=== PATIENT | female | born 1985 | race Caucasian/White ===

== ENCOUNTER → 2018-06-15 11:11 | Outpatient (CLI) | payer BC, SELFPAY ==
[2018-06-17 11:38] LABS: HPV Reflexed? NOT INDICATED
== END ==
PROVIDERS: Visit Provider Obstetrics & Gynecology
DX: Z12.4 Encounter for screening for malignant neoplasm of cervix (principal)
CPT/HCPCS: 88175; G0145

== ENCOUNTER → 2021-10-22 | Outpatient (CLI) | payer OTHER, SELFPAY ==
--- NOTE | 2021-10-22 18:16 | US_ITS ---
STUDY: ULTRASOUND TRANSVAGINAL CLINICAL: Female, 36 years old. pelvic pain TECHNIQUE: Axial and sagittal ultrasound images of the pelvis were obtained transvaginally. COMPARISON: None. FINDINGS: The uterus measures 8.6 x 5.5 x 3.1 cm. An IUD is in satisfactory position. There is no discrete uterine fibroid. Trace fluid noted in the cervical canal. The right ovary measures 3.0 x 2.6 x 2.4 cm and the left ovary measures 3.8 x 2.9 x 2.3 cm. No focal ovarian lesion is identified on either side. There is a 2.4 cm dominant follicle in the left ovary. Blood flow to the ovaries was documented. There is no adnexal mass. No free fluid is seen in the pelvis. US/Transvaginal Non- IMPRESSION: IUD in satisfactory position. Unremarkable ovaries. No adnexal mass. Electronically Signed: Gaston Chavarria MD at 20:03 EDT ,
== END | disposition home or self-care (01) ==
PROVIDERS: PCP Family Medicine; Visit Provider Nurse Practitioner Women's Health
DX: R10.2 Pelvic and perineal pain (principal); Z97.5 Presence of (intrauterine) contraceptive device
CPT/HCPCS: 76830; 93976

== ENCOUNTER → 2024-06-19 | Outpatient (CLI) | payer OTHER, SELFPAY ==
--- NOTE | 2024-06-19 17:00 | RAD_ITS ---
EXAM: Abdomen single view CLINICAL HISTORY: Sitz marker day 3 COMPARISON: None available TECHNIQUE: Single supine view of the abdomen FINDINGS: No markers are present. Some gas and stool is seen in the colon. No significant appearing fecal load. Pelvic phleboliths incidentally noted. Intrauterine device. Visualized osseous structures appear within limits. RAD/Abdomen Single View IMPRESSION: No markers are present. Reading Location: [id number]
--- NOTE | 2024-06-21 10:05 | RAD_ITS ---
EXAM: Abdomen single view CLINICAL HISTORY: Sitz marker day 5 COMPARISON: 06/19/2024 TECHNIQUE: 2 supine views of the abdomen and pelvis FINDINGS: Again no Sitz markers are present. No significant appearing fecal load. No gaseous distention of bowel. Intrauterine device and pelvic phleboliths again noted. RAD/Abdomen Single View IMPRESSION: Again no Sitz markers are present. Reading Location: [id number]
== END | disposition home or self-care (01) ==
PROVIDERS: PCP Family Medicine; Referring Provider Student in an Organized Health Care Education/Training Program; Visit Provider Nurse Practitioner Acute Care
DX: K59.00 Constipation, unspecified (principal); R10.84 Generalized abdominal pain
CPT/HCPCS: 74018

== ENCOUNTER 2024-06-21 09:57 | Outpatient (CLI) | payer OTHER, SELFPAY | END 2024-06-21 23:59 | disposition home or self-care (01) | LOC: RAD 10:02 | PROVIDERS: PCP Family Medicine; Referring Provider Nurse Practitioner Acute Care; Visit Provider Nurse Practitioner Acute Care | DX: Z00.00 Encounter for general adult medical examination without abnormal findings (principal) | CPT/HCPCS: 74018 ==

== ENCOUNTER 2024-08-23 05:22 | Day surgery (SDC) | payer OTHER, SELFPAY ==
[2024-08-23] VITALS (8 sets, daily range): BP systolic 97–104; BP diastolic 63–70; PULSE 58–79; RESP 16; TEMP 36.1–36.7; O2SAT 99–100; BMI 22.0
[2024-08-23 05:58] LABS: Internal QC Validated? YES +Cl - CLEAR BKGD; Pregnancy, Urine Negative Negative
[2024-08-23] MEDS: Lactated Ringers 1,000 ML 15 ML IV (06:00)
--- NOTE | 2024-08-23 06:22 | PCM.PRE.AN2 ---
ASA Classification* ASA Classification ASA Classification: 1 Assessment & Plan Anesthesia* Anesthesia Assessment Anesthesia Assessment: Discussed sedation and/or anesthesia options, risks, benefits, and alternatives with patient/parents/legal guardian/POA. Questions invited. The patient/parents/legal guardian/POA seems to understand and agrees to proceed with anesthesia plan. Reviewed the physical assessment, medical history, allergy history and patient home medications list prior to surgery/procedure/anesthetic and documented any changes. Performed airway and anesthesia risk assessments. Anesthesia Type Anesthesia Type: MAC History Source History Obtained from:: Patient and Chart Anesthesia Focused Assessment* Temperature: 98.0 F Pulse Rate: 58 Blood Pressure: 104/64 Respiratory Rate: 16 Pulse Ox: 99 Oxygen Delivery Method: Room Air Airway Assessment Mouth opens: >3 cm Mallampati Score: I Teeth Condition: Intact Neck Range of motion (ROM): Full ROM Focused Labs Anesthesia Preop lab: CBC WBC 5.3 k/mm3 (4.4-11.0) 11/25/12 07:50 11/25/12 RBC 4.42 M/mm3 (4.2-5.4) 11/25/12 07:50 11/25/12 Hgb 12.3 g/dl (12.0-15.0) 11/25/12 07:50 11/25/12 Hct 36.6 % (37-47) L 11/25/12 07:50 11/25/12 Plt Count 219 K/mm3 (150-450) 11/25/12 07:50 11/25/12 CHEMISTRY Potassium 3.7 mmol/L (3.5-5.1) 11/25/12 07:50 11/25/12 Sodium 136 mmol/L (136-145) 11/25/12 07:50 11/25/12 Phosphorus 3.7 mg/dL (2.5-4.9) 11/25/12 07:50 11/25/12 BUN 10 mg/dL (7-18) 11/25/12 07:50 11/25/12 Creatinine 0.7 mg/dL (0.6-1.0) 11/25/12 07:50 11/25/12 Glucose 79 mg/dL (70-110) 11/25/12 07:50 11/25/12 COAG Urine Test Negative Negative 08/23/24 05:38 08/23/24 Pre-Assessment Diagnosis/Proposed Procedure Planned Operative Procedure(s): CSCOPE Anesthesia History Anesthesia History - director shopper marketing: Anesthesia History - director shopper marketing Hx Hospitalization No 08/18/24 11:49 Any Problems With Anesthesia No 08/18/24 11:49 Cholinesterase deficiency No 08/18/24 11:49 You/Your Family Experience No 08/18/24 11:49 fever (hyperthermia) with Relationship Recent Exposure to Contagious No 08/23/24 05:51 Disease Does patient have nerve No 08/18/24 11:49 stimulator Patient instructed to have device shut off --Does patient have Pacemaker No 08/23/24 05:52 or ICD? When Was Last Pacemaker Check QUESTION #4 FULL TEXT: You/Your Family Experience fever (hyperthermia) with Anesthesia Last Oral Intake Last Oral intake: Last Oral Intake NPO since 00:00 08/23/24 05:52 Meds taken in AM with sips of water? Meds patient instructed to take am of surgery PONV PONV - director shopper marketing: PONV - director shopper marketing Female Yes 08/18/24 11:49 HX of Motion Sickness Yes 08/18/24 11:49 HX of N/V After Surgery No 08/18/24 11:49 Non-Smoker Yes 08/18/24 11:49 Duration of Surgery greater No 08/18/24 11:49 than 60 minutes Number of Risk Factors 3 08/18/24 11:49 PONV Score Moderate Risk 08/18/24 11:49 Height & Weight Height & Weight: Anesthesia: Height & Weight Height 5 ft 3 in 08/23/24 05:52 Weight: 56.518 kg 08/23/24 05:52 Body Mass Index (BMI) 22.0 08/23/24 05:52 Respiratory Assessment Respiratory Assessment - director shopper marketing: Respiratory Tract Infection Hx - director shopper marketing Hx Respiratory Tract Infection No 08/18/24 11:49 STOP Sleep Apnea STOP Sleep Apnea - director shopper marketing: STOP Sleep Apnea - director shopper marketing Hx Hypertension No 08/18/24 11:49 Hx Sleep Apnea No 08/18/24 11:49 CPAP BIPAP Do you snore loudly (louder No 08/18/24 11:49 than talking or can be heard Do you often feel tired/ No 08/18/24 11:49 fatigued/ sleepy during daytime? Has anyone observed you stop No 08/18/24 11:49 breathing during sleep? STOP Results Negative 08/18/24 11:49 QUESTION #5 FULL TEXT : Do you snore loudly (louder than talking or can be heard through closed doors)? 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 Specify any problems Hx of Preganancy in last 3 No 08/18/24 11:49 Months Nurse Filling Out Transfusion DSCHRIBER 08/18/24 11:49 & Questions: Date: 08/18/24 08/18/24 11:49 Time: 11:50 08/18/24 11:49 Patient unable to answer at this time (ie. confused, unrespo /Reproduction History /Reproductive History - director shopper marketing: /Reproductive Hx- director shopper marketing Hx Now No 08/18/24 11:49 Gestational Age (in weeks): EDC: Hx Hx Para Hx Section SAB No 08/18/24 11:49 Active Medications Active Medications: Current Medications Generic Name Dose Route Start Last Admin Trade Name Freq PRN Reason Stop Dose Admin Lactated Ringer's 1,000 mls @ 15 mls/hr 08/23/24 05:45 08/23/24 06:00 IV 15 mls/hr .Q48H GOMEZ Administration PFSH Medical History Wears glasses Wears contact lenses Migraine headache History of IBS Gastric reflux Former smoker Home Medications ?Medication ?Instructions ?Recorded ?Last Taken ?Type omeprazole 20 mg capsule,delayed 20 mg PO QDAY GERD #90 caps 06/14/24 08/22/24 Rx release [id number] 100 gram-sod sulf 7.5 See Rx Instructions PO PER PKG DIR 08/22/24 Unknown Rx [id number]-ascorbate-C oral #1 ea pwdr pack (MoviPrep) Allergy/AdvReac Type Severity Reaction Status Date / Time No Known Allergies Allergy Verified 08/23/24 05:49 Family History Grandmother IBS (irritable bowel syndrome) Rheumatoid arthritis Fibromyalgia Hypertension Mother Arthritis Fibromyalgia Rheumatoid arthritis Hypertension Father Hypertension Grandfather Hypertension Surgical History No history of previous surgery Hx of breast biopsy Social History Smoking Status: Never smoker alcohol intake: never substance use type: does not use frequency: 3-4 times per week Review of Systems (Anesthesia) ROS Narrative System reviewed and no additional complaints, except as documented.
--- NOTE | 2024-08-23 06:30 | COLBX_PTH ---
PATIENT: BRAULIO HOLDER LOC: EN U#:[id number] AGE/SX: 38/F ROOM: RE08/23/[address]: Dr. Phillip Shah DO : 1985 BED: DIS: 08/23/2024 SPEC #: [id number] RECD: 08/23/24 08:10 STATUS: AIDA RONNY #: [id number] SIOBHAN: 08/23/24 06:[address]: Phillip Shah DEPT: SURGICAL PATHOLOGY RECD BY: Selvin Curiel ENTERED: 08/23/24 09:00 SP TYPE: COLON BX EDMUND DR: Dr. Jessa Kimball MD Tissues: A - Ileum, NOS B - COLON BIOPSY C - COLON BIOPSY Procedures: Surgery Specimen Level IV HEADER OPERATION: Colonoscopy and biopsy and polypectomy PRE-OP DIAGNOSIS: Abdominal pain, cramping, constipation TISSUE SUBMITTED: A- Terminal ileum biopsy, B- Hepatic flexure polyp, C- Random colon biopsy MICROSCOPIC DIAGNOSIS A. Small bowel, terminal ileum, biopsy: Normal villous morphology with no specific pathologic change. B. Colon, hepatic flexure, polyp, biopsy: Tubular adenoma. C. Colon, random, biopsy: No specific pathologic change. The histologic features of microscopic colitis are not demonstrated. MICROSCOPIC DESCRIPTION Slides are reviewed. GROSS DESCRIPTION A. Received in formalin in a container labeled with the patient's name, date of , and terminal ileum are 3 george-pink fragments of mucosal tissue ranging from 0.4 x 0.2 x 0.2 cm to 0.5 x 0.2 x 0.2 cm. Submitted in toto in A1. B. Received in formalin in a container labeled with the patient's name, date of , and polyp hepatic flexure is a 0.3 x 0.3 x 0.2 cm fragment of george-pink mucosal tissue. Submitted in toto in B1. C. Received in formalin in a container labeled with the patient's name, date of , and random colon biopsies are multiple george-pink fragments of mucosal tissue measuring 1.0 x 0.6 x 0.2 cm in aggregate. Submitted in toto in C1. [facility] 08-23-2024 CPT:83543w5
--- NOTE | 2024-08-23 07:01 | HP.PCM_ITS ---
HPI - General General Date of Admission: 08/23/24 Date of Service: 08/23/24 Chief Complaint: abdominal pain , GERD, constipation HPI Narrative BRAULIO HOLDER, is a 38 F who presents for evaluation of abdominal pain, cramping, nausea and change in bowel habits with worsening constipation. r CBC and CMP 05/03/2024 unremarkable including calcium - for several years she has had ongoing stomach issues - can go several days without a BM, abdominal pain and bloating adn then will have several days of diarrhea - typically rabbit turds or watery diarrhea - has abdominal cramping - cramping can be very intense - diarrhea can be so bad she fears having any accident - denies any weight loss - denies any bleeding - she has never had a colonoscopy - has tried increasing fiber - she had tried to pay close attention to food that trigger symptoms - water intake is good - close to a gallon a day - reducing red meat has helped with symptoms she has added fruit with breakfast - veggie intake is pretty standard - she tried Benefiber chews these did not help - HB in the evenings - reflux if she eats too late at night - she is prescribed Omeprazole but does not take often - Tums helps - denies any N/V PFSH Medical History Wears glasses Wears contact lenses Migraine headache History of IBS Gastric reflux Former smoker Home Medications ?Medication ?Instructions ?Recorded ?Last Taken ?Type omeprazole 20 mg capsule,delayed 20 mg PO QDAY GERD #9 0 caps 06/14/24 08/22/24 Rx release [id number] 100 gram-sod sulf 7.5 See Rx Instructions PO P ER PKG DIR 08/22/24 Unknown Rx [id number]-ascorbate-C oral #1 ea pwdr pack (MoviPrep) Allergy/AdvReac Type Severity Reaction Status Date / Time No Known Allergies Allergy Verified 08/23/24 05:49 Family History Grandmother IBS (irritable bowel syndrome) Rheumatoid arthritis Fibromyalgia Hypertension Mother Arthritis Fibromyalgia Rheumatoid arthritis Hypertension Father Hypertension Grandfather Hypertension Surgical History No history of previous surgery Hx of breast biopsy Social History Smoking Status: Never smoker alcohol intake: never substance use type: does not use frequency: 3-4 times per week ROS Constitutional Constitutional: Denies fatigue, fever(s), poor appetite, weight gain or weight loss Gastrointestinal Gastrointestinal: Denies belching, bloating, change in bowel habits, change in stool character, chewing difficulty, coffee ground emesis, constipation, cramping, diarrhea, dyspepsia, dysphagia, early satiety, excessive flatus, fecal incontinence, heartburn, hematemesis, hematochezia, hemorrhoids, loose stools, melena, nausea, odynophagia, rectal bleeding, tenesmus, vomiting or weight changes Vital Signs Vital Signs Vital Signs: 08/23/24 05:51 08/23/24 05:52 08/23/24 06:26 Temperature 98.0 F 98.0 F Temperature Source Temporal Pulse Rate 58 L 58 L Respiratory Rate 16 16 Respiratory Pattern Normal Blood Pressure 104/64 104/64 Blood Pressure Mean 77 Blood Pressure Source Monitor Blood Pressure Position Semi-Fowlers Blood Pressure Location Left Arm Pulse Ox 99 99 Oxygen Delivery Method Room Air Room Air Weight Weight: 124 lb 9.6 oz Body Mass Index (BMI) 22.0 Physical Exam Const alert, oriented x3, no apparent distress and healthy appearing General Appearance: cooperative GI normal to inspection, nondistended, normoactive bowel sounds, soft to palpation, non-tender and non-distended Percussion: normal to percussion Rectal Exam: deferred Results Lab / Micro Data Labs: Laboratory Results - last 24 hr 08/23/24 05:38: Urine Test Negative Assessment & Plan Assessment/Plan (1) Abdominal cramping: (2) Abdominal pain: QUALIFIERS: Abdominal location: generalized Qualified Code(s): R10.84 - Generalized abdominal pain (3) Constipation: QUALIFIERS: Constipation type: unspecified constipation type Qualified Code(s): K59.00 - Constipation, unspecified (4) GERD (gastroesophageal reflux disease): QUALIFIERS: Esophagitis presence: esophagitis presence not specified Qualified Code(s): K21.9 - Gastro-esophageal reflux disease without esophagitis (5) IBS (irritable bowel syndrome): PLAN: Assessment and Plan Assessment and Plan (1) GERD (gastroesophageal reflux disease): Status: Acute Qualifiers: Esophagitis presence: esophagitis presence not specified Qualified Code(s): K21.9 - Gastro-esophageal reflux disease without esophagitis (2) Constipation: Status: Acute Qualifiers: Constipation type: unspecified constipation type Qualified Code(s): K59.00 - Constipation, unspecified (3) Abdominal pain: Status: Acute Qualifiers: Abdominal location: generalized Qualified Code(s): R10.84 - Generalized abdominal pain (4) Abdominal cramping: Status: Acute Plan 38y/o female presents for initial consultation with complaints of heartburn, constipation and diarrhea. Heartburn symptoms are intermittent and exacerbated with alcohol and late night eating. We have discussed GERD recommendations and I have encouraged her to complete an 8 week course of Omeprazole 20mg daily. She reports a long history of alternating constipation and diarrhea associated with abdominal pain and cramping. Stools are either hard small balls or urgent watery diarrhea. She prefers not to take any medications if possible. I have recommended a high fiber diet with the addition of daily fiber supplement and probiotic. She will complete Sitz Marker testing and colonoscopy. CBC and CMP were unremarkable 05/03/2024, if she has not had a recent TSH, I recommend she have this completed. A total of 60 minutes was spent on this visit reviewing [employer] and/or [facility] for associated records; previous notes (CBC, CMP 05/03/2024), counseling the patient on (high fiber diet, GERD diet, benefits of fiber supplements and probiotics, ACG PPI recommendation), ordering tests (sitz marker, colonoscopy), adjusting meds (Omeprazole, FiberCon and Probiotic), importance of compliance with treatment and documenting the findings in the note. Patient Instructions: - Complete Sitz Marker study - FiberCon 2 tablets once daily with 8 ounces of water after a meal. May take up to 3 weeks for symptom improvement. - Start a probiotic (ThisLife, Shot & Shope or Myrl) once daily. These are all multispecies probiotics, pick the cheapest one. - Omeprazole 20mg daily, take 30 minutes before breakfast daily for 8 weeks. If symptoms are persisting or return with discontinuing will schedule EGD. - Follow-up in the office post colonoscopy IBS includes symptoms such as abdominal pain, bloating, diarrhea, constipation or mixed bowel habits. Patients can also experience small intestinal bacterial overgrowth (SIBO), food sensitivities exacerbating symptoms. Making dietary changes with a low FODMAP diet, gluten free diet or antiinflammatory diet have shown to be beneficial as well as taking a daily probiotic. Physical activity and stress management are also important in managing your gut health; as this helps regulate autonomic function and improve gut motility. Studies show yoga, walking, meditation, relaxation techniques, mindfulness and deep breathing exercises are also beneficial for gut health. If you are not already taking a probiotic, I recommend a once daily multispecies probiotic such as Align, Culturelle or [facility]. In addition to a probiotic, I recommend a daily fiber supplement such as FiberCon tablets. Taking two FiberCon tablets once daily helps with both constipation (by softening stools and promoting movement) and diarrhea (by absorbing excess fluid and firming stools). Fiber helps maintain regular bowel movements which create a more balanced gut environment and can help reduce gut irritation and bloating. Consistent fiber intake can support beneficial bacteria by promoting gut motility and reducing stagnation of waste. Incorporating a fiber and probiotic supplement paired with lifestyle changes such as hydration (aim for at least 64 ounces daily), movement and a balanced diet may take up to three weeks to show noticeable benefits. Consistency is jarquin in allowing the gut time to adapt. The gut-brain axis plays a significant role, and effective treatment requires a multifaceted approach that goes beyond medications alone. While pharmacological therapy can be beneficial, the greatest impact comes from a comprehensive, whole-body approach that includes dietary modifications, stress management, physical activity, and gut health optimization. Addressing these factors together helps improve overall well-being and symptom management. PPIs are the most effective medical treatment for GERD. Some medical studies have identified an association between the long-term use of PPIs and the development of numerous adverse conditions including intestinal infections, pneumonia, stomach cancer, osteoporosis-related bone fractures, chronic kidney disease, deficiencies of certain vitamins and minerals, heart attacks, strokes, dementia, and early . Those studies have flaws, are not considered definitive, and do not establish a gulco-lgq-cqaptz relationship between PPIs and the adverse conditions. High-quality studies have found that PPIs do not significantly increase the risk of any of these conditions except intestinal infections. Nevertheless, we cannot exclude the possibility that PPIs might confer a small increase in the risk of developing these adverse conditions. For the treatment of GERD, gastroenterologists generally agree that the well- established benefits of PPIs far outweigh their theoretical risks. Coding Level of Care Code Attention Lydia Diagnoses Gastroesophageal reflux disease, unspecified whether esophagitis present K21.9 Esophagitis presence: esophagitis presence not specified Constipation, unspecified constipation type K59.00 Constipation type: unspecified constipation type Generalized abdominal pain R10.84 Abdominal location: generalized Abdominal cramping R10.9
--- NOTE | 2024-08-23 07:29 | PCM.POST.ANE ---
Anesthesia: Postop Eval I Current Vital Signs Temperature: 97 F Pulse Rate: 79 Blood Pressure: 104/70 Respiratory Rate: 16 Pulse Ox: 100 Oxygen Delivery Method: Room Air Assessment Airway patent: Yes Spontaneous unlabored respirations: Yes Mental status: Awake and Calm nausea: No Vomiting: No Anesthesia Complication: No Fluid Hydration Crystalloid volume administer (ml): 400 Total IV fluid infused: 400 Progress Note Anesthesia document: Postop Eval 1 completed: Yes
--- NOTE | 2024-08-23 07:38 | OP.CCLET_ITS ---
08/23/2024 Jessa Kimball Md Re : Colonoscopy procedure for Yaquelin Hartley Dear Dr. Kimball This procedure was performed on Friday, August 23, 2024. My impressions and recommendations are as follows: Impressions : - One 4 mm polyp at the hepatic flexure, removed with a jumbo cold forceps. Resected and retrieved. - Stricture at the hepatic flexure. - Congested mucosa in the sigmoid colon, in the descending colon and at the hepatic flexure. Biopsied. - Mild inflammation was found in the ileum secondary to ileitis. Biopsied. Recommendations : - Discharge patient to home. - Resume previous diet. - Continue present medications. - Await pathology results. - Repeat colonoscopy in 5 years for surveillance. - Return to GI office. My findings are described in the full procedure note, which is enclosed. If I can be of further assistance, please feel free to contact me at . Sincerely, Phillip Shah, 08/23/2024 7:36:43 AM This report has been signed electronically.
--- NOTE | 2024-08-23 07:38 | OP.COLON_ITS ---
Patient Name: Yaquelin Hartley Procedure Date: 08/23/2024 6:50 AM Date of : 1985 Age: 38 Procedure: Colonoscopy Indications: Generalized abdominal pain, Change in bowel habits, Constipation, Obstipation Providers: Phillip Shah DO Referring MD: Jessa Kimball Md Medicines: Monitored Anesthesia Care Patient Profile: This is a 38 year old female. Refer to note in patient chart for documentation of history and physical. Last Colonoscopy: none. The patient's first colonoscopy is today. Complications: No immediate complications. Procedure: Pre-Anesthesia Assessment: - Prior to the procedure, a History and Physical was performed, and patient medications and allergies were reviewed. The patient is competent. The risks and benefits of the procedure and the sedation options and risks were discussed with the patient. All questions were answered and informed consent was obtained. Patient identification and proposed procedure were verified by the physician in the pre-procedure area. Mental Status Examination: alert and oriented. Airway Examination: normal oropharyngeal airway and neck mobility. Respiratory Examination: clear to auscultation. CV Examination: normal. Prophylactic Antibiotics: The patient does not require prophylactic antibiotics. Prior Anticoagulants: The patient has taken no anticoagulant or antiplatelet agents except for NSAID medication. ASA Grade Assessment: II - A patient with mild systemic disease. After reviewing the risks and benefits, the patient was deemed in satisfactory condition to undergo the procedure. The anesthesia plan was to use monitored anesthesia care (MAC). Immediately prior to administration of medications, the patient was re-assessed for adequacy to receive sedatives. The heart rate, respiratory rate, oxygen saturations, blood pressure, adequacy of pulmonary ventilation, and response to care were monitored throughout the procedure. The physical status of the patient was re-assessed after the procedure. After I obtained informed consent, the scope was passed under direct vision. Throughout the procedure, the patient's blood pressure, pulse, and oxygen saturations were monitored continuously. The Colonoscope was introduced through the anus and advanced to the terminal ileum. The colonoscopy was performed without difficulty. The patient tolerated the procedure well. The quality of the bowel preparation was adequate. The terminal ileum, ileocecal valve, appendiceal orifice, and rectum were photographed. Scope In: 7:10:14 AM Scope Withdrawal Time 0 hours 6 minutes 51 seconds Scope Out: 7:20:58 AM Total Procedure Duration Time 0 hours 10 minutes 44 seconds Findings: The perianal and digital rectal examinations were normal. A 4 mm polyp was found in the hepatic flexure. The polyp was sessile. The polyp was removed with a jumbo cold forceps. Resection and retrieval were complete. Verification of patient identification for the specimen was done. Estimated blood loss was minimal. A benign-appearing, intrinsic mild stenosis measuring 1 cm (in length) was found at the hepatic flexure and was traversed. An area of mildly congested mucosa was found in the sigmoid colon, in the descending colon and at the hepatic flexure. Biopsies were taken with a cold forceps for histology. Verification of patient identification for the specimen was done. Localized mild inflammation characterized by erythema was found in the terminal ileum. Biopsies were taken with a cold forceps for histology. Verification of patient identification for the specimen was done. Verification of patient identification for the specimen was done. Estimated blood loss was minimal. Impression: - One 4 mm polyp at the hepatic flexure, removed with a jumbo cold forceps. Resected and retrieved. - Stricture at the hepatic flexure. - Congested mucosa in the sigmoid colon, in the descending colon and at the hepatic flexure. Biopsied. - Mild inflammation was found in the ileum secondary to ileitis. Biopsied. Recommendation: - Discharge patient to home. - Resume previous diet. - Continue present medications. - Await pathology results. - Repeat colonoscopy in 5 years for surveillance. - Return to GI office. Procedure Code(s): --- Professional --- 26605, Colonoscopy, flexible; with biopsy, single or multiple CPT copyright 2021 [employer]. All rights reserved. The codes documented in this report are preliminary and upon utility tender carding review may be revised to meet current compliance requirements. Phillip Shah DO 08/23/2024 7:36:43 AM This report has been signed electronically. Number of Addenda: 0 Note Initiated On: 08/23/2024 6:50 AM
--- NOTE | 2024-08-23 08:13 | PCM.POSTANE2 ---
Anesthesia Postop Eval I Sum Postop Eval Completion status Anesthesia document: Postop Eval 1 completed: Yes Anesthesia Postop Eval I Summary Anesthesia Postop Eval I Summary: Anesthesia Postop Eval I: Assessment Summary Airway patent Yes 08/23/24 07:29 [email or web address] Spontaneous unlabored Yes 08/23/24 07:29 [email or web address] respirations Mental status Awake,Calm 08/23/24 07:29 [email or web address] nausea No 08/23/24 07:29 [email or web address] Vomiting No 08/23/24 07:29 [email or web address] Anesthesia Postop Eval I: Fluid Summary Crystalloid volume administer 400 08/23/24 07:29 [email or web address] (ml) Colloids volume administered ( ml) Blood Product volume administered (ml) Total IV fluid infused 400 08/23/24 07:29 [email or web address] Anesthesia Postop Eval I: Summary Notes Anesthesia Complication No 08/23/24 07:29 [email or web address] Anesthesia Complication Comment: Post-operative progress note Anesthesia: Postop Eval II Evaluation Mental status: Awake Pain Level: 0 nausea: No Vomiting: No
== END 2024-08-23 08:31 | disposition home or self-care (01) ==
LOC: EN 05:23 → AC 05:40
PROVIDERS: Anesthesiology; PCP Family Medicine; Referring Provider Family Medicine; Visit Provider Internal Medicine Gastroenterology
PROC: 0DJD8ZZ Inspection of Lower Intestinal Tract, Via Natural or Artificial Opening Endoscopic (ICD-10-PCS; CPT 45378; principal; 2024-08-23 06:25)
DX: K21.9 Gastro-esophageal reflux disease without esophagitis (principal); K58.0 Irritable bowel syndrome with diarrhea; K63.89 Other specified diseases of intestine; D12.3 Benign neoplasm of transverse colon; Z79.899 Other long term (current) drug therapy
CPT/HCPCS: 45380; 81025; 88305; J2405

== ENCOUNTER 2024-10-04 10:11 | Observation (INO) | payer OTHER, SELFPAY ==
[2024-10-04] VITALS (16 sets, daily range): BP systolic 104–127; BP diastolic 68–80; PULSE 64–85; RESP 14–18; TEMP 36.1–37.2; O2SAT 97–100; BMI 22.1
--- NOTE | 2024-10-04 10:59 | CT_ITS ---
EXAM: CT Abdomen and Pelvis With Intravenous Contrast CLINICAL INDICATION: PAIN TECHNIQUE: Axial computed tomography images of the abdomen and pelvis with intravenous contrast. This CT exam was performed using one or more of the following dose reduction techniques: automated exposure control, adjustment of the mA and/or kV according to patient size, and/or use of iterative reconstruction technique. COMPARISON: No relevant prior studies available. FINDINGS: LUNG BASES: Unremarkable. No mass. No consolidation. ABDOMEN: LIVER: Hepatomegaly with fatty infiltration. GALLBLADDER AND BILE DUCTS: Unremarkable. No calcified stones. No ductal dilation. PANCREAS: Unremarkable. No mass. No ductal dilation. SPLEEN: Unremarkable. No splenomegaly. ADRENALS: Unremarkable. No mass. KIDNEYS AND URETERS: Unremarkable. No stones within either kidney. No hydronephrosis. STOMACH AND BOWEL: Fecal retention in the colon consistent with constipation. No obstruction. No mucosal thickening. PELVIS: APPENDIX: The appendix measures up to 8 mm in diameter with subtle fat stranding. This could be evolving or resolving acute appendicitis. No pneumoperitoneum or abscess. BLADDER: Unremarkable. No mass. REPRODUCTIVE: Unremarkable as visualized. ABDOMEN and PELVIS: INTRAPERITONEAL SPACE: See above. BONES/JOINTS: No acute fracture. No dislocation. SOFT TISSUES: Umbilical hernia containing fat. VASCULATURE: Unremarkable. No abdominal aortic aneurysm. LYMPH NODES: Unremarkable. No enlarged lymph nodes. CT/Abdomen/Pelvis W IV Cont ONLY IMPRESSION: 1. The appendix measures up to 8 mm in diameter with subtle fat stranding. Th is could be evolving or resolving acute appendicitis. No pneumoperitoneum or abscess. 2. Hepatomegaly with fatty infiltration. 3. No obstructive uropathy. 4. Umbilical hernia containing fat. 5. Fecal retention in the colon consistent with constipation. Reading [facility]
--- NOTE | 2024-10-04 11:00 | EDS_ITS ---
HPI HPI - GI History of Present Illness Chief Complaint: Abd Pain Informant: patient Abdominal Pain/Flank Pain Onset: Today Context: Sudden Onset Timing: Continuous Quality: Aching and Sharp Location: LLQ and - (Left periumbilical area) Worsened by: Movement (Sitting upright and ambulation) Relieved by: Remaining Still Nausea/Vomiting/Emesis GI Symptom: Positive for Nausea and Vomiting Diarrhea/Melena/Hematochezia GI Symptom: Positive for Diarrhea; Negative for Melena or Hematochezia Associated Symptoms Associated Symptoms: Negative for Dysuria, Frequency or Hematuria LMP: Current Narrative Narrative: Patient presents with abdominal pain that began today. Patient states it woke her up from sleep early this morning. Patient states that it has been constant. Patient describes it as aching but sharp at times. Patient states it is over the left periumbilical area and left lower quadrant. Patient states it is worse with certain movements. Patient states it is worse with ambulation and with sitting upright. Patient states it is better when she is able to remain still and lay flat. Patient admits to some nausea and vomiting. Patient admits to some diarrhea. Patient denies any hematemesis or coffee-ground emesis. Patient denies any melena or hematochezia. Patient is currently on her menstrual period. Patient denies any urinary complaints. PFSH PFS Medical History Wears glasses Wears contact lenses Migraine headache History of IBS Gastric reflux Former smoker Home Medications ?Medication ?Instructions ?Recorded ?Last Taken ?Type omeprazole 20 mg capsule,delayed 20 mg PO QDAY GERD #9 0 caps 06/14/24 08/22/24 Rx release hyoscyamine sulfate 0.125 mg 0.125 mg PO BID-QID PRN a bdominal 09/13/24 Unknown Rx disintegrating tablet cramping, diarrhea #60 tabs Allergy/AdvReac Type Severity Reaction Status Date / Time No Known Allergies Allergy Verified 08/23/24 05:49 Family History Grandmother IBS (irritable bowel syndrome) Rheumatoid arthritis Fibromyalgia Hypertension Mother Arthritis Fibromyalgia Rheumatoid arthritis Hypertension Father Hypertension Grandfather Hypertension Surgical History No history of previous surgery Hx of breast biopsy Social History Smoking Status: Never smoker alcohol intake: never substance use type: does not use frequency: 3-4 times per week ROS ROS ED Constitutional Constitutional ED: Reports chills and subjective; Denies fever(s) Eyes Eyes: Denies blurry vision or change in vision ENT ENT ED: Denies rhinorrhea or sore throat Cardiovascular Cardiovascular: Denies chest pain or palpitations Respiratory/Chest Respiratory/Chest: Denies cough or dyspnea Gastrointestinal Gastrointestinal: Reports abdominal pain, diarrhea, nausea and vomiting; Denies melena Genitourinary Genitourinary ED: Denies dysuria or hematuria Musculoskeletal Musculoskeletal: Reports back pain; Denies neck pain Integumentary Denies abscess or rash Neurologic Neurologic: Denies headache(s) or weakness Allergic/Immunologic Allergic/Immunologic ED: Denies mouth swelling or urticaria EXAM Physical Exam Const Vital Signs: 10/04/24 10:11 10/04/24 11:11 10/04/24 12:00 Temperature 98.6 F Temperature Source Oral Pulse Rate 71 70 85 Respiratory Rate 18 14 14 Blood Pressure 115/75 115/68 124/73 H Blood Pressure Mean 88 83 90 Pulse Ox 100 100 100 Oxygen Delivery Method Room Air Room Air Room Air 10/04/24 13:00 10/04/24 13:55 Temperature 98.6 F Temperature Source Pulse Rate 70 70 Respiratory Rate 14 14 Blood Pressure 123/72 H 123/72 H Blood Pressure Mean 89 89 Pulse Ox 99 99 Oxygen Delivery Method Room Air Positive well nourished and well developed Constitutional Narrative: BMI is 22.1. General Appearance ED: well developed and NAD HEENT Reports moist mucous membranes normocephalic and atraumatic Neck supple and no JVD Resp normal respiratory effort and clear to auscultation bilaterally Cardio regular rate and regular rhythm GI non-distended Palpation: soft and tender LLQ, periumbilical and suprapubic; Negative for guarding or rebound tenderness present Neuro CN's II-XII intact bilaterally, moves all extremities and no sensory deficits noted Sensorium / Orientation: alert Motor Exam: strength 5/5 throughout Psych mental status grossly normal MDM MDM MDM Narrative Medical decision making narrative: Differential diagnosis includes ureteral calculus, pyelonephritis, urinary tract infection, diverticulitis, pancreatitis, ectopic , ovarian cyst, and constipation. CT scan of the abdomen and pelvis will be obtained to assess for ureteral calculus, diverticulitis, pancreatitis, bowel obstruction, perforation. CBC will be obtained to assess for leukocytosis and anemia. Comprehensive metabolic profile will be obtained to assess for hepatic function, renal function, and electrolyte abnormality. Lipase will be obtained to assess for pancreatitis. Serum hCG will be obtained to assess for . Urinalysis will be obtained to assess for urinary tract infection and hematuria. History & Record Review Additional record(s) reviewed:: Prior outpatient record Lab Data Attestation: I reviewed the patient's lab results. Lab results narrative: CBC was reviewed. There is a leukocytosis of 15.5. The remainder is within normal limits. Comprehensive metabolic profile was reviewed and was essentially within normal limits. Lipase was reviewed and was normal at 48. Serum hCG was reviewed and was negative. Urinalysis was reviewed. There is no evidence of urinary tract infection or hematuria. Labs: Laboratory Results - last 24 hr 10/04/24 10/04/24 11:10 11:20 WBC 15.5 H RBC 4.73 Hgb 13.4 Hct 39.7 MCV 83.9 MCH 28.3 MCHC 33.8 RDW Std Deviation 36.1 RDW Coeff of Alcira 11.9 Plt Count 264 MPV 10.3 Immature Gran % (Auto) 0.700 Neut % (Auto) 88.2 H Lymph % (Auto) 5.2 L Bartholomew % (Auto) 5.5 Eos % (Auto) 0.1 Baso % (Auto) 0.3 Absolute Neuts (auto) 13.6 H Absolute Lymphs (auto) 0.81 L Nucleated RBC % 0 Sodium 138 Potassium 3.6 Chloride 102 Carbon Dioxide 20.8 L Anion Gap 15 BUN 11 Creatinine 0.74 Estim Creat Clear Calc 86.10 Est GFR (MDRD) Non-Af 106 BUN/Creatinine Ratio 14.7 Glucose 99 Calcium 9.2 Total Bilirubin 0.64 AST 19 ALT 12 Alkaline Phosphatase 43 Total Protein 7.7 Albumin 4.7 Globulin 3.1 Albumin/Globulin Ratio 1.5 Lipase 48 Serum , Qual NEGATIVE Urine Color Yellow Urine Clarity Clear Urine pH 6.0 Ur Specific [place] 1.010 Urine Protein 15 H Urine Glucose (UA) Normal Urine Ketones 50 H Urine Occult Blood 50 H Urine Nitrite Negative Urine Bilirubin Negative Urine Urobilinogen Normal Ur Leukocyte Esterase Negative Urine RBC 0-5 SEEN Urine WBC 0 SEEN Ur Squamous Epith Cells 0-5 SEEN Urine Bacteria 0 SEEN Urine Mucus 0 SEEN Radiography Diagnostic Testing: Clinical Impression(s) from Imaging Studies Abdomen/Pelvis CT 10/04/24 10:59 IMPRESSION: 1. The appendix measures up to 8 mm in diameter with subtle fat stranding. This could be evolving or resolving acute appendicitis. No pneumoperitoneum or abscess. 2. Hepatomegaly with fatty infiltration. 3. No obstructive uropathy. 4. Umbilical hernia containing fat. 5. Fecal retention in the colon consistent with constipation. Reading Location: [facility] CT scan of the abdomen and pelvis was obtained. The appendix measures 8 mm in diameter with subtle fat stranding. There is an umbilical hernia containing fat. There is fecal retention in the colon consistent with constipation. There is no ureteral calculus or obstructive uropathy. This was interpreted by the radiologist and was also independently reviewed by myself. Management Discussion w/another healthcare provider: Shut Off Worker (Dr. Tyson) Treatment and Re-Evaluation :: Patient was given IV fluids, morphine, and Zofran. Patient was advised of her findings. Patient was given a dose of Zosyn. Case was discussed with Dr. Tyson. She will likely take patient to the operating room later today. Patient and understand and are agreeable with the plan. All questions were answered. Discharge Plan Dx/Rx/DC Orders Clinical Impression: Acute appendicitis, Abdominal pain Disposition Disposition: Acute Care Hospital [facility] Discharge Date/Time: 10/04/24 13:56
[2024-10-04] MEDS: 0.9% Normal Saline (1000mL) 1,000 ML 999 ML IV (11:16)
[2024-10-04 11:23] LABS: Hematocrit 39.7 % (37-47); Hemoglobin 13.4 g/dL (12.0-15.0); Immature Granulocytes Count 0.110 X10^3/uL (0.0-0.0); Mean Corp Hgb Conc 33.8 g/dL (32-36); Mean Corpuscular Volume 83.9 fL (81-99); Mean Platelet Vol. 10.3 fl (6.2-12.0); NRBC Flagged by Analyzer 0 % (0-5); Platelet Count 264 K/mm3 (150-450); RBC Distribution Width CV 11.9 % (11.6-14.6); RBC Distribution Width SD 36.1 fl (35.1-43.9); Red Blood Count 4.73 M/mm3 (4.2-5.4); White Blood Count 15.5 K/mm3 (4.4-11.0)
[2024-10-04 11:26] LABS: Mucous, Urine 0 SEEN /hpf (<or=2+)
[2024-10-04 11:40] LABS: Color, Urine Yellow (Yellow); Glucose, Dipstick Normal (Normal); Ketone-Dipstick 50 mg/dl (Negative); Leukocyte Esterase-Dipstick Negative /ul (Negative); Nitrite-Dipstick Negative (Negative); Occult Blood-Urine 50 /ul (Negative); Protein-Dipstick 15 mg/dl (Negative); Specific Gravity, Urine 1.010 (1.002-1.030); Urine Bilirubin Dipstick Negative (Negative)
[2024-10-04 12:03] LABS: Red Blood Cells-Urine 0-5 SEEN /hpf (0-5); Squamous Epithelial Cells - UA 0-5 SEEN /hpf (5-10)
[2024-10-04 12:28] LABS: Internal QC Validated? YES +Cl - CLEAR BKGD; Pregnancy, Serum, hCG Quali. NEGATIVE Negative; Record Kit Lot#, Serum Preg. 0000947241
[2024-10-04 12:32] LABS: AST(SGOT) 19 U/L (<=31); Alanine Aminotransfer ALT/SGPT 12 U/L (<=34); Albumin, Serum 4.7 g/dL (3.5-5.0); Alkaline Phosphatase 43 U/L (35-104); Anion Gap 15 (5-15); BUN 11 mg/dL (4-19); BUN/Creat Ratio 14.7 RATIO (10-20); Calcium,Total 9.2 mg/dL (7.6-11.0); Carbon Dioxide 20.8 mmol/L (21.0-32.0); Chloride 102 mmol/L (98-108); Estimated Creatinine Clearance 86.10 ml/min (50-250); Globulin 3.1 g/dL (2.2-4.2); Glucose 99 mg/dL (70-99); Lipase 48 U/L (13-75); Potassium 3.6 mmol/L (3.3-5.1)
[2024-10-04] MEDS: Piperacil/Tazobactam 4.5 GM in 0.9% Normal Saline (100mL MB+) 100 ML IV (13:19)
--- NOTE | 2024-10-04 13:56 | PCM.HP.STD ---
HPI - General General Date of Admission: 10/04/24 Date of Service: 10/04/24 Chief Complaint: Periumbilical pain HPI Narrative BRAULIO HOLDER, is a 39 F who presents with 1 day history of worsening periumbilical pain. She notes at 0500 AM is when the pain presented. She stated the pain became worse and she contacted her at 0930 AM to take her to the ED. She notes associated nausea and vomiting. She notes lack of appetite. She recently had a colonoscopy with Dr. Shah for irritable bowel disease. Findings include a tubular adenoma at the hepatic flexure. Patient takes omeprazole. She denies any previous abdominal surgeries. She denies previous cardiac and pulmonary issues. CT scan of the ab/pel demonstrated acute appendicitis. WBC 15.5 PFSH Medical History Wears glasses Wears contact lenses Migraine headache History of IBS Gastric reflux Former smoker Home Medications ?Medication ?Instructions ?Recorded ?Last Taken ?Type omeprazole 20 mg capsule,delayed 20 mg PO QDAY GERD #90 caps 06/14/24 08/22/24 Rx release hyoscyamine sulfate 0.125 mg 0.125 mg PO BID-QID PRN abdominal 09/13/24 Unknown Rx disintegrating tablet cramping, diarrhea #60 tabs Allergy/AdvReac Type Severity Reaction Status Date / Time No Known Allergies Allergy Verified 08/23/24 05:49 Family History Grandmother IBS (irritable bowel syndrome) Rheumatoid arthritis Fibromyalgia Hypertension Mother Arthritis Fibromyalgia Rheumatoid arthritis Hypertension Father Hypertension Grandfather Hypertension Surgical History No history of previous surgery Hx of breast biopsy Social History Smoking Status: Never smoker alcohol intake: never substance use type: does not use frequency: 3-4 times per week ROS Constitutional Constitutional: Reports systems reviewed and no addt'l complaints, except as documented Eyes Eyes: Reports systems reviewed and no addt'l complaints, except as documented ENT HEENT: Reports systems reviewed and no addt'l complaints, except as documented Cardiovascular Cardiovascular: Reports systems reviewed and no addt'l complaints, except as documented Respiratory/Chest Respiratory/Chest: Reports systems reviewed and no addt'l complaints, except as documented Gastrointestinal Gastrointestinal: Reports systems reviewed and no addt'l complaints, except as documented Genitourinary Genitourinary: Reports systems reviewed and no addt'l complaints, except as documented Musculoskeletal Musculoskeletal: Reports systems reviewed and no addt'l complaints, except as documented Integumentary Integumentary: Reports systems reviewed and no addt'l complaints, except as documented Neurologic Neurologic: Reports systems reviewed and no addt'l complaints, except as documented Psychiatric Psychiatric: Reports systems reviewed and no addt'l complaints, except as documented Endocrine Endocrinology: Reports systems reviewed and no addt'l complaints, except as documented Hematologic/Lymphatic Hematologic/Lymphatic: Reports systems reviewed and no addt'l complaints, except as documented Allergic/Immunologic Allergic/Immunologic: Reports systems reviewed and no addt'l complaints, except as documented Vital Signs Vital Signs Vital Signs: 10/04/24 10:11 10/04/24 11:11 10/04/24 12:00 Temperature 98.6 F Temperature Source Oral Pulse Rate 71 70 85 Respiratory Rate 18 14 14 Blood Pressure 115/75 115/68 124/73 H Blood Pressure Mean 88 83 90 Pulse Ox 100 100 100 Oxygen Delivery Method Room Air Room Air Room Air 10/04/24 13:00 10/04/24 13:55 Temperature 98.6 F Temperature Source Pulse Rate 70 70 Respiratory Rate 14 14 Blood Pressure 123/72 H 123/72 H Blood Pressure Mean 89 89 Pulse Ox 99 99 Oxygen Delivery Method Room Air Weight Weight: 125 lb Body Mass Index (BMI) 22.1 Physical Exam Const alert, oriented x3 and no apparent distress HEENT normocephalic and head/scalp atraumatic Eyes PERRL Neck full ROM Lymph Lymphatic: no lymphadenopathy noted Chest inspection of chest normal Resp normal respiratory effort and clear to auscultation bilaterally Cardio regular rate and regular rhythm GI GI Narrative: Abdomen- soft, slightly distended, pain to palpation in the periumbilical and suprapubic region no CVA tenderness Back/Spine no CVA tenderness Extremity normal to inspection Skin no rashes or lesions noted Neuro no focal motor deficits and no sensory deficits noted Psych mental status grossly normal Results Lab / Micro Data 10/04/24 11:10 10/04/24 11:10 Labs: Laboratory Results - last 24 hr 10/04/24 11:10: WBC 15.5 H, RBC 4.73, Hgb 13.4, Hct 39.7, MCV 83.9, MCH 28.3, MCHC 33.8, RDW Std Deviation 36.1, RDW Coeff of Alcira 11.9, Plt Count 264, MPV 10.3, Immature Gran % (Auto) 0.700, Neut % (Auto) 88.2 H, Lymph % (Auto) 5.2 L, [place] % (Auto) 5.5, Eos % (Auto) 0.1, Baso % (Auto) 0.3, Absolute Neuts (auto) 13.6 H, Absolute Lymphs (auto) 0.81 L, Nucleated RBC % 0, Sodium 138, Potassium 3.6, Chloride 102, Carbon Dioxide 20.8 L, Anion Gap 15, BUN 11, Creatinine 0.74, Estim Creat Clear Calc 86.10, Est GFR (MDRD) Non-Af 106, BUN/Creatinine Ratio 14.7, Glucose 99, Calcium 9.2, Total Bilirubin 0.64, AST 19, ALT 12, Alkaline Phosphatase 43, Total Protein 7.7, Albumin 4.7, Globulin 3.1, Albumin/Globulin Ratio 1.5, Lipase 48, Serum , Qual NEGATIVE 10/04/24 11:20: Urine Color Yellow, Urine Clarity Clear, Urine pH 6.0, Ur Specific [place] 1.010, Urine Protein 15 H, Urine Glucose (UA) Normal, Urine Ketones 50 H, Urine Occult Blood 50 H, Urine Nitrite Negative, Urine Bilirubin Negative, Urine Urobilinogen Normal, Ur Leukocyte Esterase Negative, Urine RBC 0-5 SEEN, Urine WBC 0 SEEN, Ur Squamous Epith Cells 0-5 SEEN, Urine Bacteria 0 SEEN, Urine Mucus 0 SEEN Imaging Radiology Impression Abdomen/Pelvis CT 10/04/24 10:59 IMPRESSION: 1. The appendix measures up to 8 mm in diameter with subtle fat stranding. This could be evolving or resolving acute appendicitis. No pneumoperitoneum or abscess. 2. Hepatomegaly with fatty infiltration. 3. No obstructive uropathy. 4. Umbilical hernia containing fat. 5. Fecal retention in the colon consistent with constipation. Reading Location: [facility] Assessment & Plan Assessment/Plan (1) Acute appendicitis: QUALIFIERS: Acute appendicitis type: with localized peritonitis Appendicitis gangrene presence: without gangrene Appendicitis perforation presence: without perforation Appendicitis abscess presence: without abscess Qualified Code(s): K35.30 - Acute appendicitis with localized peritonitis, without perforation or gangrene PLAN: I am seeing this patient in conjunction with Dr. Tyson. She will independently evaluate this patient. Patient presented with a 1 day history of periumbilical pain that radiated to the suprapubic region. She had a CT scan of the ab/pel which demonstrated acute appendicitis with associated leukocytosis with left shift. Plan will be for Dr. Tyson to perform a laparoscopic appendectomy. Procedure details, risks and benefits have been explained. Patient and her have had the opportunity to ask and have questions answered. Patient verbally understands and agrees with the plan. Plan will be to admit the patient for observation following the procedure. Thank you for allowing us to participate in this patient's care. Charges/Coding Visit Charges OBSV E&M: 92171 Observ/hosp same date L2 (pre-op)
--- NOTE | 2024-10-04 14:22 | PCM.PRE.AN2 ---
ASA Classification* ASA Classification ASA Classification: 1 Assessment & Plan Anesthesia* Anesthesia Assessment Anesthesia Assessment: Discussed sedation and/or anesthesia options, risks, benefits, and alternatives with patient/parents/legal guardian/POA. Questions invited. The patient/parents/legal guardian/POA seems to understand and agrees to proceed with anesthesia plan. Reviewed the physical assessment, medical history, allergy history and patient home medications list prior to surgery/procedure/anesthetic and documented any changes. Performed airway and anesthesia risk assessments. Procedural Plan Add'l anesthesia plan details: Had 2 small cookies at noon. The surgeon is calling this an emergency. I discussed in detail with the patient and her the risk of aspiration. Anesthesia Type Anesthesia Type: General History Source History Obtained from:: Patient and Chart Anesthesia Focused Assessment* Temperature: 98.6 F Pulse Rate: 70 Blood Pressure: 123/72 Respiratory Rate: 14 Pulse Ox: 99 Oxygen Delivery Method: Room Air Airway Assessment Mouth opens: >3 cm Mallampati Score: I Teeth Condition: Intact Neck Range of motion (ROM): Full ROM Labs Anesthesia Preop lab: CBC WBC 15.5 K/mm3 (4.4-11.0) H 10/04/24 11:10 10/04/24 RBC 4.73 M/mm3 (4.2-5.4) 10/04/24 11:10 10/04/24 Hgb 13.4 g/dL (12.0-15.0) 10/04/24 11:10 10/04/24 Hct 39.7 % (37-47) 10/04/24 11:10 10/04/24 Plt Count 264 K/mm3 (150-450) 10/04/24 11:10 10/04/24 CHEMISTRY Potassium 3.6 mmol/L (3.3-5.1) 10/04/24 11:10 10/04/24 Sodium 138 mmol/L (133-145) 10/04/24 11:10 10/04/24 Phosphorus 3.7 mg/dL (2.5-4.9) 11/25/12 07:50 11/25/12 BUN 11 mg/dL (4-19) 10/04/24 11:10 10/04/24 Creatinine 0.74 mg/dL (0.70-1.20) 10/04/24 11:10 10/04/24 Glucose 99 mg/dL (70-99) 10/04/24 11:10 10/04/24 COAG Urine Test Negative Negative 08/23/24 05:38 08/23/24 Pre-Assessment Diagnosis/Proposed Procedure Planned Operative Procedure(s): Laparoscopic appendectomy Anesthesia History Anesthesia History - signals collector/analyst: Anesthesia History - signals collector/analyst Hx Hospitalization No 08/18/24 11:49 Any Problems With Anesthesia No 08/18/24 11:49 Cholinesterase deficiency No 08/18/24 11:49 You/Your Family Experience No 08/18/24 11:49 fever (hyperthermia) with Relationship Recent Exposure to Contagious No 08/23/24 05:51 Disease Does patient have nerve No 08/18/24 11:49 stimulator Patient instructed to have device shut off --Does patient have Pacemaker or ICD? When Was Last Pacemaker Check QUESTION #4 FULL TEXT: You/Your Family Experience fever (hyperthermia) with Anesthesia Last Oral Intake Last Oral intake: Last Oral Intake NPO since Meds taken in AM with sips of water? Meds patient instructed to take am of surgery PONV PONV - signals collector/analyst: PONV - signals collector/analyst Female HX of Motion Sickness HX of N/V After Surgery Non-Smoker Duration of Surgery greater than 60 minutes Number of Risk Factors PONV Score Height & Weight Height & Weight: Anesthesia: Height & Weight Height 5 ft 3 in 10/04/24 10:11 Weight: 56.699 kg 10/04/24 10:11 Body Mass Index (BMI) 22.1 10/04/24 10:11 Respiratory Assessment Respiratory Assessment - signals collector/analyst: Respiratory Tract Infection Hx - signals collector/analyst Hx Respiratory Tract Infection No 08/18/24 11:49 STOP Sleep Apnea STOP Sleep Apnea - signals collector/analyst: STOP Sleep Apnea - signals collector/analyst Hx Hypertension No 08/18/24 11:49 Hx Sleep Apnea No 08/18/24 11:49 CPAP BIPAP Do you snore loudly (louder than talking or can be heard Do you often feel tired/ fatigued/ sleepy during daytime? Has anyone observed you stop breathing during sleep? STOP Results QUESTION #5 FULL TEXT : Do you snore loudly (louder than talking or can be heard through closed doors)? 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 Specify any problems Hx of Preganancy in last 3 Months Nurse Filling Out Transfusion & Questions: Date: Time: Patient unable to answer at this time (ie. confused, unrespo /Reproduction History /Reproductive History - signals collector/analyst: /Reproductive Hx- signals collector/analyst Hx Now Gestational Age (in weeks): EDC: Hx Hx Para Hx Section SAB No 10/04/24 10:11 PFSH Medical History Wears glasses Wears contact lenses Migraine headache History of IBS Gastric reflux Former smoker Home Medications ?Medication ?Instructions ?Recorded ?Last Taken ?Type omeprazole 20 mg capsule,delayed 20 mg PO QDAY GERD #90 caps 06/14/24 08/22/24 Rx release hyoscyamine sulfate 0.125 mg 0.125 mg PO BID-QID PRN abdominal 09/13/24 Unknown Rx disintegrating tablet cramping, diarrhea #60 tabs Allergy/AdvReac Type Severity Reaction Status Date / Time No Known Allergies Allergy Verified 08/23/24 05:49 Family History Grandmother IBS (irritable bowel syndrome) Rheumatoid arthritis Fibromyalgia Hypertension Mother Arthritis Fibromyalgia Rheumatoid arthritis Hypertension Father Hypertension Grandfather Hypertension Surgical History No history of previous surgery Hx of breast biopsy Social History Smoking Status: Never smoker alcohol intake: never substance use type: does not use frequency: 3-4 times per week Review of Systems (Anesthesia) ROS Narrative System reviewed and no additional complaints, except as documented.
--- NOTE | 2024-10-04 15:00 | APP_PTH ---
PATIENT: BRAULIO HOLDER LOC: [facility] U#:[id number] AGE/SX: 39/F ROOM: [facility] RE10/04/[address]: Dr. Lien Tyson MD : 1985 BED: 1 DIS: 10/04/2024 SPEC #: [id number] RECD: 10/05/24 08:07 STATUS: AIDA REQian #: [id number] SIOBHAN: 10/04/24 15:[address]: Lien Tyson DEPT: SURGICAL PATHOLOGY RECD BY: Selvin Curiel ENTERED: 10/05/24 10:36 SP TYPE: APPENDIX OTHR DR: Dr. Jessa Kimball MD Tissues: A - Appendix, NOS Procedures: Surgery Specimen Level III HEADER OPERATION: Laparoscopic appendectomy PRE-OP DIAGNOSIS: Acute appendicitis TISSUE SUBMITTED: A- Appendix MICROSCOPIC DIAGNOSIS A. Appendix, appendectomy: * Acute suppurative appendicitis with transmural inflammation and periappendicitis * Endometriosis MICROSCOPIC DESCRIPTION Slides are reviewed. GROSS DESCRIPTION A. Received in formalin labeled with the patient's name and date of . Designated as appendix is a 7.4 x 1.0 cm george-pink appendix with up to 1.4 cm of attached focally congested mesoappendix. The proximal margin is inked black and shaved. The serosa has a moderate amount of patchy fibrinous exudate. Sectioning reveals a george focally erythematous mucosa with a moderate amount of hemorrhagic material within the lumen; the distal tip is somewhat irregular and fibrotic however, no definitive lesions are grossly appreciated. Security Systems Installer sections are submitted in 2 cassettes as follows: A1: Distal tipA2: Margin, cross-sections ID 10/05/2024 CPT:23089
[2024-10-04] MEDS: Bupiv/Epi 0.25% 30 ML Vial (16:20)
--- NOTE | 2024-10-04 16:24 | PCM.OPRPT ---
Operative Report (Standard) Operative Information Date of Procedure: 10/04/24 Pre-Operative Diagnosis: Acute appendicitis Post-Operative Diagnosis: Same Surgery/Procedure Performed: Laparoscopic appendectomy service learning coordinator: No Type of Anesthesia: General/Supplemental RN Documented Start/Stop Times: Operation Date: 10/04/24 15:00 Case Time Into Pre-Op 10/04/24 14:42 Out of Pre-Op 10/04/24 15:37 Anesthesia Start 10/04/24 15:39 Into Room 10/04/24 15:39 Procedure Start 10/04/24 15:54 Procedure End 10/04/24 16:21 Procedure Start Time: 15:54 Procedure Stop Time: 16:21 Select all DRAINS/GRAFTS/IMPLANTS that apply: None Special Medications: Zosyn 3.375 g IV x 1 given in the ER for acute appendicitis Estimated Blood Loss: < 10 cc Specimen collected: Yes Description of specimen(s) removed: Appendix Description of surgery: Indications: 36-year-old female presented to the ER with new right lower quadrant pain this morning. On workup she was found to have acute appendicitis on CT and a leukocytosis of 15.5. Patient was started on antibiotics in the ER for acute appendicitis-Zosyn IV in the ER Description of the procedure: The patient was placed on operating table in supine position. General anesthesia was induced. A timeout was completed verifying correct patient, procedure, position and special equipment prior to beginning procedure. Abdomen was prepped and draped in usual sterile fashion. Incision was made in the natural skin line below the umbilicus with a 15 blade scalpel. The fascia was elevated and incised. Entry into the peritoneum was confirmed visually and no bowel was noted in the vicinity of the incision. The Jernigan trocar was placed under direct vision. Abdomen insufflated with a pressure of 12-15 mmHg. Patient tolerated insertion well. The scope was inserted and the abdomen inspected. No injuries from initial trocar placement were noted. Minimal amount of fluid was seen in the right lower quadrant. An direct visualization 2 -5 mm trocars were placed one above the symphysis pubis and below the hairline and one in the left lower quadrant lateral to the rectus muscle. Care is taken to avoid injury to the bladder and inferior epigastric vessels. The table was placed in Trendelenburg position with the right side elevated. The appendix was grasped with atraumatic grasper and elevated. It was noted to be inflamed. A window was developed in the mesoappendix at the point between the base of the appendix and the cecum. An endoscopic 45 mm linear cutting stapler blue load was then used to divide and staple the base of the appendix. Enseal was used to divide the mesoappendix. The appendix was withdrawn into the Jernigan trocar after being placed endoscopically retrieval bag. Appendix was sent to pathology. The appendiceal stump was then irrigated and hemostasis was assured. Fluid was suctioned no other pathology was identified. Secondary trochars were removed under direct visualization. No bleeding was noted trocar sites. The laparoscope withdrawn and the umbilical trocar removed. The abdomen was allowed to collapse. Local anesthesia of 27 mL of 0.25% Marcaine was used at the incision sites. The umbilical trocar site was closed with the [id number] 0 Vicryl suture. The skin was closed using sutures of 4-0 Monocryl and Steri-Strips. The patient was extubated. The patient tolerated the procedure well and was taken to the postanesthesia care unit in satisfactory condition. Surgical Findings: See operative report Complications Complications: No
--- NOTE | 2024-10-04 16:26 | DCINST_ITS ---
Discharge Instructions Diet Discharge Diet: Light diet - advance as tolerated Activity Discharge Activity: May Not Drive (while taking narcotic pain medications.) May shower in (days): 1 Lifting Restrictions: no lifting >20 lbs x 2 wks, no strenuous exercise for 4 wks Dressing / Incision Call your doctor if your incision/area has: Continuous Slow Oozing, Sudden Increased Bleeding, Increased Pain/ Swelling, Increased Redness, Foul Smelling Discharge and Swelling at the incision site Call your doctor if you observe: Fever of 101 or Higher Remove Dressing in: 2 days Cleanse incision/area with: Soap & Water Additional Dressing/Incision Instructions:: Steri-Strips will fall off in 7 to 10 days, if they do not fall off okay to remove after 10 days. Follow Up Care Please Follow Up With: Lien Tyson MD When: Call the office for a follow-up appointment 2 weeks; after 5 PM and on the weekends call [phone] with any concerns. Test Results: Test results from this visit will be discussed in further detail at your follow- up appointment, if applicable. Discharge Plan Admission Admit Date/Time: 10/04/24 14:14 Attending Provider: Lien Tyson Primary Care Provider: Jessa Kimball Discharge Orders/Prescriptions Prescriptions: New oxycodone 5 mg capsule 5 mg PO Q6H PRN (Reason: pain) 3 Days Qty: 10 0RF Continued omeprazole 20 mg capsule,delayed release(DR/EC) 20 mg PO QDAY Qty: 90 1RF hyoscyamine sulfate 0.125 mg tablet,disintegrating 0.125 mg PO BID-QID PRN (Reason: abdominal cramping, diarrhea) Qty: 60 1RF Referrals / Follow Up: Jessa Kimball MD [Primary Care Provider] - Disposition Disposition (needs filled in before D/C Order can be placed): Home, Self Care
--- NOTE | 2024-10-04 16:30 | PCM.POST.ANE ---
Anesthesia: Postop Eval I Current Vital Signs Temperature: 97 F Pulse Rate: 81 Blood Pressure: 114/74 Respiratory Rate: 16 Pulse Ox: 98 Oxygen Delivery Method: Room Air Assessment Airway patent: Yes Spontaneous unlabored respirations: Yes Mental status: Awake and Calm nausea: No Vomiting: No Anesthesia Complication: No Fluid Hydration Crystalloid volume administer (ml): 500 Total IV fluid infused: 500 Progress Note Anesthesia document: Postop Eval 1 completed: Yes
--- NOTE | 2024-10-04 17:43 | POSTOPAN2_ITS ---
Anesthesia Postop Eval I Sum Postop Eval Completion status Anesthesia document: Postop Eval 1 completed: Yes Anesthesia Postop Eval I Summary Anesthesia Postop Eval I Summary: Anesthesia Postop Eval I: Assessment Summary Airway patent Yes 10/04/24 16:31 COMMODITY [email or web address] Spontaneous unlabored Yes 10/04/24 16:31 COMMODITY MERCHANT.MDOT respirations Mental status Awake,Calm 10/04/24 16:31 COMMODITY MERCHANT.MDOT nausea No 10/04/24 16:31 COMMODITY MERCHANT.MDOT Vomiting No 10/04/24 16:31 COMMODITY MERCHANT.MDOT Anesthesia Postop Eval I: Fluid Summary Crystalloid volume administer 500 10/04/24 16:31 COMMODITY MERCHANT.MDOT (ml) Colloids volume administered ( ml) Blood Product volume administered (ml) Total IV fluid infused 500 10/04/24 16:31 COMMODITY MERCHANT.MDOT Anesthesia Postop Eval I: Summary Notes Anesthesia Complication No 10/04/24 16:31 COMMODITY MERCHANT.MDOT Anesthesia Complication Comment: Post-operative progress note Anesthesia: Postop Eval II Evaluation Mental status: Awake and Calm Pain Level: 1 nausea: No Vomiting: No Complications Anesthesia Complication: No
--- NOTE | 2024-10-04 17:43 | PCM.POSTANE2 ---
Anesthesia Postop Eval I Sum Postop Eval Completion status Anesthesia document: Postop Eval 1 completed: Yes Anesthesia Postop Eval I Summary Anesthesia Postop Eval I Summary: Anesthesia Postop Eval I: Assessment Summary Airway patent Yes 10/04/24 16:31 NOVELTY [email or web address] Spontaneous unlabored Yes 10/04/24 16:31 NOVELTY WORKER.MDOT respirations Mental status Awake,Calm 10/04/24 16:31 NOVELTY [email or web address].MDOT nausea No 10/04/24 16:31 NOVELTY WORKER.MDOT Vomiting No 10/04/24 16:31 NOVELTY [email or web address].MDOT Anesthesia Postop Eval I: Fluid Summary Crystalloid volume administer 500 10/04/24 16:31 NOVELTY [email or web address].MDOT (ml) Colloids volume administered ( ml) Blood Product volume administered (ml) Total IV fluid infused 500 10/04/24 16:31 NOVELTY WORKER.MDOT Anesthesia Postop Eval I: Summary Notes Anesthesia Complication No 10/04/24 16:31 NOVELTY WORKER.MDOT Anesthesia Complication Comment: Post-operative progress note Anesthesia: Postop Eval II Evaluation Mental status: Awake and Calm Pain Level: 1 nausea: No Vomiting: No Complications Anesthesia Complication: No
--- OUTSIDE RECORDS SUMMARY | 2024-10-05 04:22 | XMS RPT_ITS | CCD ---
Author Organization [facility] Care Team Providers Care Electrical Helper Name Role Phone Jigar DOUGLAS, Dr. Germain Primary Care Provider Dr. Piedad Kimball MD Referring Provider [phone] Hans ASSISTANT PROFESSOR OF COMMUNICATION-C, Rowena Attending Provider Charlotte Padilla Referring Provider Hans ASSISTANT PROFESSOR OF COMMUNICATION-C, Rowena Referring Provider Jigar DOUGLAS, Piedad Primary Care Provider ALIDA CIFUENTES Attending Unavailable CIFUENTESALIDA Cleaning Referring Unavailable KIMBALL, PIEDAD Primary Care Unavailable CIFUENTESALIDA Cleaning Attending Unavailable CIFUENTES, ALIDA Referring Unavailable KIMBALL, PIEDAD Primary Care Unavailable Friend Dr. Phillip TURNER Attending Provider Friend Dr. Phillip TURNER Other Provider Rowena Maxwell Attending Unavailable Hans, Rowena Referring Unavailable Kimball, Piedad Primary Care Unavailable Rowena Maxwell Attending Unavailable Kimball, Piedad Referring Unavailable Kimball, Piedad Primary Care Unavailable HansRowena lauren Attending Unavailable Kimball, Piedad Primary Care Unavailable Kimball, Piedad Referring Unavailable Kimball, Piedad Referring Unavailable Kimball, Piedad Primary Care Unavailable FriendPhillip Consulting Unavailable FriendPhillip Attending Unavailable FriendPhillip Attending Unavailable Kimball, Piedad Primary Care Unavailable Kimball, Piedad Referring Unavailable Charlotte Landin Referring Unavailable HansRowena lauren Attending Unavailable Kimball, Piedad Primary Care Unavailable Medications Current Medications Medication Drug Class(es) Dates Sig (Normalized) Sig (Original) hyoscyamine sulfate 0.125 mg disintegrating oral tablet (1 source) Start: 09-13-2024 Hyoscyamine Sulfate 0.125 mg tablet,disintegra ting Active 0.125 mg PO 2 to 4 times per day as needed for abdominal cramping, diarrhea 60 September 13, 2024 12:00am omeprazole 20 mg delayed release oral capsule (8 sources) Proton Pump Inhibitor Start: 06-14-2024 End: 06-14-2024 take 1 capsule by mouth once daily Omeprazole 20 mg capsule,delayed release(DR/EC) Active 20 mg PO daily 90 June 14, 2024 9:05am Completed/Discontinued Medications Medication Drug Class(es) Dates Sig (Normalized) Sig (Original) ascorbic acid 4700 mg / polyethylene glycol 3350 039016 mg / potassium chloride 1015 mg / sodium ascorbate 5900 mg / sodium chloride 2690 mg / sodium sulfate 7500 mg powder for oral solution (2 sources) Osmotic Laxative, Vitamin C Start: 08-22-2024 End: 09-13-2024 take 1 dose by mouth once [id number] Wsj-Yygw-Yvg-Asb-C (Moviprep) 100-7.5-2.691 gram powder in packet Discontinued 0 PO per package directions August 22, 2024 12:00am September 13, 2024 8:29am as directed for split dose bowel prep ondansetron 4 mg oral tablet (4 sources) Serotonin-3 Receptor Antagonist Start: 06-14-2024 End: 08-18-2024 take 2 tablets by mouth every two hours as needed, then take 1 tablet by mouth every four hours as needed Ondansetron Hcl 4 mg tablet Discontinued 4 mg PO .COMPLEX 5 June 14, 2024 12:00am August 18, 2024 11:48am 4 mg orally; take two tablets PO two hours prior to start of bowel prep and one every 4 hours as needed for N/V Sod Sulf-Pot Chloride-Mag Sulf (4 sources) Start: 06-14-2024 End: 08-18-2024 take 1.479 tablets by mouth once Sod Sulf-Pot Chloride-Mag Sulf (Sutab) 1.479-0.188- 0.225 gram tablet Discontinued 0 PO per package directions June 14, 2024 12:00am August 18, 2024 11:48am take as directed for colonoscopy Start: 06-14-2024 take 1.479 tablets b y mouth once Sod Sulf-Pot Chloride-Mag Sulf (Sutab) 1.479-0.188- 0.225 gram tablet Active 0 PO per package directions June 14, 2024 12:00am take as directed for colonoscopy Problems Problem Classification Problem Date Documented Da te Episodic/Chronic Abdominal pain (20 sources) Finding of sensation of abdomen; Translations: [Unspecified abdominal pain] Onset: 5 06-14-2024 Episodic Esophageal disorders (11 sources) Gastroesophageal reflux disease; Translations: [Gastro-esophageal reflux disease without esophagitis] Onset: 5 06-14-2024 Chronic Nonmalignant breast conditions (6 sources) Lump in upper outer quadrant of right breast; Translations: [Unspecified lump in the right breast, upper outer quadrant] Onset: 5 07-05-2024 Episodic Other gastrointestinal disorders (6 sources) Irritable bowel syndrome; Translations: [Irritable bowel syndrome without diarrhea] 06-14-2024 Chronic Other gastrointestinal disorders (1 source) Irritable bowel syndrome without diarrhea; Translations: [Irritable bowel syndrome, unspecified] Onset: 5 Chronic Other gastrointestinal disorders (10 sources) Constipation; Translations: [Constipation, unspecified] 06-14-2024 Episodic Other gastrointestinal disorders (2 sources) Constipation, unspecified; Translations: [Constipation, unspecified] Onset: 5 Episodic Results Test Name Value Interpretation Reference Range Facility Gastroenterology Visit Repor ton 09-13-2024 Gastroenterology Visit Report [facility] [address] [place] [address] OFFICE VISIT Date of Service: 09/13/24 MR#: [id number] Acct: [id number] Name: BRAULIO HARTLEY Rep #: [id number] : 1985 Provider: SARA blackburn Age/Sex: 39/F [place] [facility] Status: Signed Intake Vital Signs 06/14/24 08:39 08/23/24 05:52 09/13/24 08:11 Height 5 ft 3 in 5 ft 3 in 5 ft 3 in Weight: 129 lb 6 oz BMI 22.8 BP 122/82 H Respiration 16 Pulse 74 Temp 98.2 F Temp Source Temporal Pulse Oximetry (%) 98 Oxygen Delivery Method room air Intake Visit Reasons: test result Chief Complaint: bowel issues my whole life Entertainer Or Variety Artist Required: No Accompanied by: Self Is patient in pain?: Yes Allergies No Known Allergies Allergy (Verified 08/23/24 05:49) Medications ???Medication ???Instructions ???Recorded ???Confirmed ???Type omeprazole 20 mg capsule,delayed 20 mg PO QDAY GERD #90 caps 09/13/24 Rx release hyoscyamine sulfate 0.125 mg 0.125 mg PO BID-QID PRN abdominal 09/13/24 09/13/24 Rx disintegrating tablet cramping, diarrhea #60 tabs PFSH Medical History Wears glasses Wears contact lenses Migraine headache History of IBS Gastric reflux Former smoker Surgical History No history of previous surgery Hx of breast biopsy Family History Grandmother IBS (irritable bowel syndrome) Rheumatoid arthritis Fibromyalgia Hypertension Mother Arthritis Fibromyalgia Rheumatoid arthritis Hypertension Father Hypertension Grandfather Hypertension Social History Smoking Status: Never smoker alcohol intake: never substance use type: does not use frequency: 3-4 times per week HPI HPI Chief Complaint: bowel issues my whole life Details: BRAULIO HARTLEY, is a 39 F who presents to the office today for OV 06/14/2024 38y/o female presents for initial consultation with complaints of heartburn, constipation and diarrhea. Heartburn symptoms are intermittent and exacerbated with alcohol and late night eating. We have discussed GERD recommendations and I have encouraged her to complete an 8 week course of Omeprazole 20mg daily. She reports a long history of alternating constipation and diarrhea associated with abdominal pain and cramping. Stools are either hard small balls or urgent watery diarrhea. She prefers not to take any medications if possible. I have recommended a high fiber diet with the addition of daily fiber supplement and probiotic. She will complete Sitz Marker testing and colonoscopy. CBC and CMP were unremarkable 05/03/2024, if she has not had a recent TSH, I recommend she have this completed. Patient Instructions: - Complete Sitz Marker study - FiberCon 2 tablets once daily with 8 ounces of water after a meal. May take up to 3 weeks for symptom improvement. - Start a probiotic (DistalMotion, Hamilton Thorne or Compellon) once daily. These are all multispecies probiotics, pick the cheapest one. - Omeprazole 20mg daily, take 30 minutes before breakfast daily for 8 weeks. If symptoms are persisting or return with discontinuing will schedule EGD. - Follow-up in the office post colonoscopy SITZ MARKER - Sits marker study day 3 x-ray shows no retained markers in the colon indicating normal colonic transit. Recommend she continue daily fiber supplement and probiotic and proceed with colonoscopy as scheduled. COLON 08/23/2024 TI biopsy and random biopsies unremarkable, TA - One 4 mm polyp at the hepatic flexure, removed with a jumbo cold forceps. Resected and retrieved. - Stricture at the hepatic flexure. - Congested mucosa in the sigmoid colon, in the descending colon and at the hepatic flexure. Biopsied. - Mild inflammation was found in the ileum secondary to ileitis. Biopsied. Repeat colonoscopy in 5 years for surveillance GERD, constipation, abdominal pain - the past few weeks has had episodes of intense abdominal cramping followed by diarrhea, last week had 3 days in a row that she woke in middle of night with intense abdominal cramping/pain followed by diarrhea - reports she typically she has formed stool but this is not often - reports she can go up to 3 days without a BM - episodes last week of cramping and diarrhea were after dining out - she is not taking fiber supplement or probiotic - she has increased her dietary fiber intake - on the past 3 months she has had more unpredictable abdominal cramping and diarrhea - denies any h/o antispasmodics - GERD - has HB in the evening if she forgets (more content not included)... [facility] Colonoscopy Reporton 025 Colonoscopy Report [facility] Medical Records Department [address] [place] [address] Colonoscopy Report MR#: [id number] Acct: [id number] Name: BRAULIO HARTLEY Rep #: [id number] : 1985 38 From: Phillip Shah DO PCP: Dr. Piedad Kimball MD [place] [facility] [place] Name: Braulio Hartley Procedure Date: 08/23/2024 6:50 AM Date of : 1985 Age: 38 Procedure: Colonoscopy Indications: Generalized abdominal pain, Change in bowel habits, Constipation, Obstipation Providers: Phillip Shah DO Referring MD: Piedad Kimball Md Medicines: Monitored Anesthesia Care Patient Profile: This is a 38 year old female. Refer to note in patient chart for documentation of history and physical. Last Colonoscopy: none. The patient's first colonoscopy is today. Complications: No immediate complications. Procedure: Pre-Anesthesia Assessment: - Prior to the procedure, a History and Physical was performed, and patient medications and allergies were reviewed. The patient is competent. The risks and benefits of the procedure and the sedation options and risks were discussed with the patient. All questions were answered and informed consent was obtained. Patient identification and proposed procedure were verified by the physician in the pre-procedure area. Mental Status Examination: alert and oriented. Airway Examination: normal oropharyngeal airway and neck mobility. Respiratory Examination: clear to auscultation. CV Examination: normal. Prophylactic Antibiotics: The patient does not require prophylactic antibiotics. Prior Anticoagulants: The patient has taken no anticoagulant or antiplatelet agents except for NSAID medication. ASA Grade Assessment: II - A patient with mild systemic disease. After reviewing the risks and benefits, the patient was deemed in satisfactory condition to undergo the procedure. The anesthesia plan was to use monitored anesthesia care (MAC). Immediately prior to administration of medications, the patient was re-assessed for adequacy to receive sedatives. The heart rate, respiratory rate, oxygen saturations, blood pressure, adequacy of pulmonary ventilation, and response to care were monitored throughout the procedure. The physical status of the patient was re-assessed after the procedure. After I obtained informed consent, the scope was passed under direct vision. Throughout the procedure, the patient's blood pressure, pulse, and oxygen saturations were monitored continuously. The Colonoscope was introduced through the anus and advanced to the terminal ileum. The colonoscopy was performed without difficulty. The patient tolerated the procedure well. The quality of the bowel preparation was adequate. The terminal ileum, ileocecal valve, appendiceal orifice, and rectum were photographed. Scope In: 7:10:14 AM Scope Withdrawal Time 0 hours 6 minutes 51 seconds Scope Out: 7:20:58 AM Total Procedure Duration Time 0 hours 10 minutes 44 seconds Findings: The perianal and digital rectal examinations were normal. A 4 mm polyp was found in the hepatic flexure. The polyp was sessile. The polyp was removed with a jumbo cold forceps. Resection and retrieval were complete. Verification of patient identification for the specimen was done. Estimated blood loss was minimal. A benign-appearing, intrinsic mild stenosis measuring 1 cm (in length) was found at the hepatic flexure and was traversed. An area of mildly congested mucosa was found in the sigmoid colon, in the descending colon and at the hepatic flexure. Biopsies were taken with a cold forceps for histology. Verification of patient identification for the specimen was done. Localized mild inflammation characterized by erythema was found in the terminal ileum. Biopsies were taken with a cold forceps for histology. Verification of patient identification for the specimen was done. Verification of patient identification for the specimen was done. Estimated blood loss was minimal. Impression: - One 4 mm polyp at the hepatic flexure, removed with a jumbo cold forceps. Resected and retrieved. - Stricture at the hepatic flexure. - Congested mucosa in the sigmoid colon, in the descending colon and at the hepatic flexure. Biopsied. - Mild inflammation was found in the ileum secondary to ileitis. Biopsied. Recommendation: - Discharge patient to home. - Resume previous diet. - Continue present medications. - Await pathology results. - Repeat colonoscopy in 5 years for surveillance. - Return to GI office. Procedure Code(s): --- Professional --- 88652, Colonoscopy, flexible; with biopsy, single or multiple CPT copyright 2021 [employer]. All rights reserved. The codes documented in this report are preliminary and upon electron tube assembler review may be revised to meet current compliance requirements. (more content not included)... [facility] MR/POSTOP.Jorge Alberto 08-23-2024 MR/POSTOP.[facility] Medical Records Department [address] [place] [address] Anesthesia Postop Eval I 08/23/24728 MR#: [id number] Acct: [id number] Name: BRAULIO HARTLEY Rep #: [id number] : 1985 38 From: Lucien Naqvi PCP: Dr. Piedad Kimball MD [place] [facility] [place]: C Location: [place] [address] Anesthesia: Postop Eval I Current Vital Signs Temperature: 97 F Pulse Rate: 79 Blood Pressure: 104/70 Respiratory Rate: 16 Pulse Ox: 100 Oxygen Delivery Method: Room Air Assessment Airway patent: Yes Spontaneous unlabored respirations: Yes Mental status: Awake and Calm nausea: No Vomiting: No Anesthesia Complication: No Fluid Hydration Crystalloid volume administer (ml): 400 Total IV fluid infused: 400 Progress Note Anesthesia document: Postop Eval 1 completed: Yes 08/23/24728 Date Lucien Nascimento Signature: Date CC: Signed [facility] [id number] 08-23-2024 /[facility] Medical Records Department [address] [place] [address] Anesthesia Postop Eval II 08/23/24812 MR#: [id number] Acct: [id number] Name: BRAULIO HARTLEY Rep #: [id number] : 1985 38 From: Elisabet Pinto PCP: Dr. Piedad Kimball MD Status:REG [facility] Y Race: C Location: [place] [address] Anesthesia Postop Eval I Sum Postop Eval Completion status Anesthesia document: Postop Eval 1 completed: Yes Anesthesia Postop Eval I Summary Anesthesia Postop Eval I Summary: Anesthesia Postop Eval I: Assessment Summary Airway patent Yes 08/23/24 07:29 [email or web address] Spontaneous unlabored Yes 08/23/24 07:29 [email or web address] respirations Mental status Awake,Calm 08/23/24 07:29 [email or web address] nausea No 08/23/24 07:29 [email or web address] Vomiting No 08/23/24 07:29 [email or web address] Anesthesia Postop Eval I: Fluid Summary Crystalloid volume administer 400 08/23/24 07:29 [email or web address] (ml) Colloids volume administered ( ml) Blood Product volume administered (ml) Total IV fluid infused 400 08/23/24 07:29 [email or web address] Anesthesia Postop Eval I: Summary Notes Anesthesia Complication No 08/23/24 07:29 [email or web address] Anesthesia Complication Comment: Post-operative progress note Anesthesia: Postop Eval II Evaluation Mental status: Awake Pain Level: 0 nausea: No Vomiting: No 08/23/24812 Date Elisabet Blair Azam Signature: Date CC: Signed [facility] ,Urineon 08-23-2024 Beta HCG ( test) Ql (U) Negative [facility] Comment on above: Result Comment: Very dilute urine specimens, as indicated by a low specific gravity, may not contain inbound call center representative levels of hCG. If is still suspected, a first morning urine specimen should be collected 48 hours later and tested. Performed By: #### L [phone] #### [facility] [place] [address] [place], [address] Surgery Specimen Level Eduardo 08-23-2024 Surgery Specimen Level IV ---- Patient Age/Sex Location Account Attending Physician ---- BRAULIO HARTLEY 38/ EN [id number] Phillip Shah DO ---- Specimen: [id number] Received: 08/23/24 Status: AIDA Radhames Num: [id number] Spec Type: COLON BX Subm Dr: Phillip Shah DO HEADER OPERATION: Colonoscopy and biopsy and polypectomy PRE-OP DIAGNOSIS: Abdominal pain, cramping, constipation TISSUE SUBMITTED: A- Terminal ileum biopsy, B- Hepatic flexure polyp, C- Random colon biopsy ---- MICROSCOPIC DIAGNOSIS A. Small bowel, terminal ileum, biopsy: Normal villous morphology with no specific pathologic change. B. Colon, hepatic flexure, polyp, biopsy: Tubular adenoma. C. Colon, random, biopsy: No specific pathologic change. The histologic features of microscopic colitis are not demonstrated. MICROSCOPIC DESCRIPTION Slides are reviewed. GROSS DESCRIPTION A. Received in formalin in a container labeled with the patient's name, date of , and terminal ileum are 3 george-pink fragments of mucosal tissue ranging from 0.4 x 0.2 x 0.2 cm to 0.5 x 0.2 x 0.2 cm. Submitted in toto in A1. B. Received in formalin in a container labeled with the patient's name, date of , and polyp hepatic flexure is a 0.3 x 0.3 x 0.2 cm fragment of george-pink mucosal tissue. Submitted in toto in B1. C. Received in formalin in a container labeled with the patient's name, date of , and random colon biopsies are multiple george-pink fragments of mucosal tissue measuring 1.0 x 0.6 x 0.2 cm in aggregate. Submitted in toto in C1. [facility] 08-23-2024 [facility]:[id number] ---- Patient Age/Sex Location Account Attending Physician ---- BRAULIO HARTLEY 38/F EN [id number] Phillip Shah DO ---- Signed (signature on file) Dr. Maylin Angulo MD 08/28/24 1210 ---- [facility] Comment on above: Performed By: #### P SUIV #### [facility] [address] [place], [address] Urine testOrdered By: Sven Baker on 08-23-2024 HCG ( test) Ql (U) Negative [facility] Comment on above: Very dilute urine sp ecimens, as indicated by a low specificgravity, may not contain inbound call center representative levels of hCG. If is still suspected, a first morning urinespecimen should be collected 48 hours later and tested. BI US BREAST LIMITED RIGHTon 07-05-2024 BI US BREAST LIMITED RIGHT This is a summary report. The complete report is available in the patient's medical record. If you cannot access the medical record, please contact the sending organization for a detailed fax or copy. Patient Name: BRAULIO HARTLEY : 1985 Exam Date/Time: 07/05/2024 15:26 Procedure: BI US BREAST LIMITED RIGHT Ordering Provider: CIFUENTES LORALEE Reason For Exam: LUMP IN BREAST This exam was performed at [place] [address] [address] [facility] [address] PATIENT CANCER HISTORY: No Personal History of Cancer FAMILY CANCER HISTORY: No Family History of Cancer COMPARISONS: None. MAMMOGRAM: Image views: 2D CC and MLO views were acquired. 3D CC and MLO views were acquired. Markings on images: BB's = Nipples; skin lesions Open nooksack = Palpable Line = Scar TISSUE DENSITY: BIRADS D - The breasts are extremely dense, which lowers the sensitivity of mammography. Images were reviewed with CAD. FINDINGS: The patient presents today for a palpable mass within the right breast. Mammographic images show no suspicious mass underlying the area of palpable concern however there is a circumscribed round mass within the lateral right breast best seen on the MLO projection. No suspicious microcalcifications or areas of architectural distortion are identified. There is no skin thickening or nipple retraction. BREAST ULTRASOUND: FINDINGS: Grayscale sonographic images were obtained of the right breast. Color Doppler was utilized. Underlying the area of palpable concern at the 9:00 position, subareolar location is an anechoic simple cyst measuring 0.5 x 0.4 x 0.5 cm in size. Posterior acoustic enhancement is present. There is no overlying vascular flow. This is a benign finding and no additional follow-up is needed. At the 9:00 position, 8 cm from nipple is a circumscribed hypoechoic mass measuring 1.3 x 0.6 x 1.4 cm in size. There is no overlying vascular flow. This correlates with the mammographic findings. A morphologically normal lymph node is present within the right axilla. IMPRESSION: Benign simple cyst underlying the area of palpable concern within the right breast. No additional follow-up is needed. 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 Short-term follow-up is recommended. ASSESSMENT: Category 3 Probably benign RECOMMENDATION: Breast ultrasound in 6 months Right CANCER RISK ASSESSMENT: This risk assessment is based on patient provided information collected in a risk survey taken at the time of this examination. LIFETIME BREAST CANCER RISK: Vahid 8: 12.74% - If greater than or equal to 20%, consider annual mammogram and annual screening Breast MRI or follow up in high risk clinic. Is the patient at elevated risk based on the HBOC criteria? No (Hereditary Breast and Ovarian Cancer) - If Yes, consider genetic counseling and testing with high risk follow up Is the patient at elevated risk based on the Puentes Syndrome criteria? No - If Yes, consider genetic counseling and testing with high risk follow up. Report Dictated on Electronically Signed By: Thuan Bravo MD Electronically Signed Date/Time: 07/05/2024 4:31 PM EDT [facility] DBT Breast - bilateral diagn osticon 07-05-2024 Patient Name: BRAULIO HARTLEY : 1985 Exam Date/Time: 07/05/2024 14:50 Procedure: BI MAMMOGRAM DIAGNOSTIC TOMOSYNTHESIS BILATERAL Ordering Provider: CIFUENTES LORALEE Reason For Exam: This exam was performed at [address] [address] PATIENT CANCER HISTORY: No Personal History of Cancer FAMILY CANCER HISTORY: No Family History of Cancer COMPARISONS: None. MAMMOGRAM: Image views: 2D CC and MLO views were acquired. 3D CC and MLO views were acquired. Markings on images: BB's = Nipples; skin lesions Open nooksack = Palpable Line = Scar TISSUE DENSITY: BIRADS D - The breasts are extremely dense, which lowers the sensitivity of mammography. Images were reviewed with CAD. FINDINGS: The patient presents today for a palpable mass within the right breast. Mammographic images show no suspicious mass underlying the area of palpable concern however there is a circumscribed round mass within the lateral right breast best seen on the MLO projection. No suspicious microcalcifications or areas of architectural distortion are identified. There is no skin thickening or nipple retraction. BREAST ULTRASOUND: FINDINGS: Grayscale sonographic images were obtained of the right breast. Color Doppler was utilized. Underlying the area of palpable concern at the 9:00 position, subareolar location is an anechoic simple cyst measuring 0.5 x 0.4 x 0.5 cm in size. Posterior acoustic enhancement is present. There is no overlying vascular flow. This is a benign finding and no additional follow-up is needed. At the 9:00 position, 8 cm from nipple is a circumscribed hypoechoic mass measuring 1.3 x 0.6 x 1.4 cm in size. There is no overlying vascular flow. This correlates with the mammographic findings. A morphologically normal lymph node is present within the right axilla. [facility] [place] [facility] Donna Bravo MD - 07/05/2024 Patient Name: BRAULIO HARTLEY : 1985 Exam Date/Time: 07/05/2024 14:50 Procedure: BI MAMMOGRAM DIAGNOSTIC TOMOSYNTHESIS BILATERAL Ordering Provider: CIFUENTES LORALEE Reason For Exam: This exam was performed at [facility] [address] [place] [address] PATIENT CANCER HISTORY: No Personal History of Cancer FAMILY CANCER HISTORY: No Family History of Cancer COMPARISONS: None. MAMMOGRAM: Image views: 2D CC and MLO views were acquired. 3D CC and MLO views were acquired. Markings on images: BB's = Nipples; skin lesions Open nooksack = Palpable Line = Scar TISSUE DENSITY: BIRADS D - The breasts are extremely dense, which lowers the sensitivity of mammography. Images were reviewed with CAD. FINDINGS: The patient presents today for a palpable mass within the right breast. Mammographic images show no suspicious mass underlying the area of palpable concern however there is a circumscribed round mass within the lateral right breast best seen on the MLO projection. No suspicious microcalcifications or areas of architectural distortion are identified. There is no skin thickening or nipple retraction. BREAST ULTRASOUND: FINDINGS: Grayscale sonographic images were obtained of the right breast. Color Doppler was utilized. Underlying the area of palpable concern at the 9:00 position, subareolar location is an anechoic simple cyst measuring 0.5 x 0.4 x 0.5 cm in size. Posterior acoustic enhancement is present. There is no overlying vascular flow. This is a benign finding and no additional follow-up is needed. At the 9:00 position, 8 cm from nipple is a circumscribed hypoechoic mass measuring 1.3 x 0.6 x 1.4 cm in size. There is no overlying vascular flow. This correlates with the mammographic findings. A morphologically normal lymph node is present within the right axilla. IMPRESSION: Benign simple cyst underlying the area of palpable concern within the right breast. No additional follow-up is needed. 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 Short-term follow-up is recommended. ASSESSMENT: Category 3 Probably benign RECOMMENDATION: Breast ultrasound in 6 months Right CANCER RISK ASSESSMENT: This risk assessment is based on patient provided information collected in a risk survey taken at the time of this examination. LIFETIME BREAST CANCER RISK: Vahid 8: 12.74% - If greater than or equal to 20%, consider annual mammogram and annual screening Breast MRI or follow up in high risk clinic. Is the patient at elevated risk based on the HBOC criteria? No (Hereditary Breast and Ovarian Cancer) - If Yes, consider genetic counseling and testing with high risk follow up Is the patient at elevated risk based on the Puentes Syndrome criteria? No - If Yes, consider genetic counseling and testing with high risk follow up. Report Dictated on Electronically Signed By: Thuan Bravo MD Electronically Signed Date/Time: 07/05/2024 4:31 PM EDT [facility] Radiology Study observation (narrative) [facility] No Panel Informationon 07-05 Benign simple cyst underlying the area of palpable concern within the right breast. No additional follow-up is needed. 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 Short-term follow-up is recommended. ASSESSMENT: Category 3 Probably benign RECOMMENDATION: Breast ultrasound in 6 months Right CANCER RISK ASSESSMENT: This risk assessment is based on patient provided information collected in a risk survey taken at the time of this examination. LIFETIME BREAST CANCER RISK: Vahid 8: 12.74% - If greater than or equal to 20%, consider annual mammogram and annual screening Breast MRI or follow up in high risk clinic. Is the patient at elevated risk based on the HBOC criteria? No (Hereditary Breast and Ovarian Cancer) - If Yes, consider genetic counseling and testing with high risk follow up Is the patient at elevated risk based on the Puentes Syndrome criteria? No - If Yes, consider genetic counseling and testing with high risk follow up. Report Dictated on Electronically Signed By: Thuan Bravo MD Electronically Signed Date/Time: 07/05/2024 4:31 PM EDT [facility] No Panel InformationOrdered By: Donna Bravo on 07-05-2024 [facility] Work Phone: US Breast - right limitedon 07-05-2024 Patient Name: BRAULIO HARTLEY : 1985 Exam Date/Time: 07/05/2024 15:26 Procedure: BI US BREAST LIMITED RIGHT Ordering Provider: CIFUENTES LORALEE Reason For Exam: LUMP IN BREAST This exam was performed at [facility] - [address] [address] PATIENT CANCER HISTORY: No Personal History of Cancer FAMILY CANCER HISTORY: No Family History of Cancer COMPARISONS: None. MAMMOGRAM: Image views: 2D CC and MLO views were acquired. 3D CC and MLO views were acquired. Markings on images: BB's = Nipples; skin lesions Open nooksack = Palpable Line = Scar TISSUE DENSITY: BIRADS D - The breasts are extremely dense, which lowers the sensitivity of mammography. Images were reviewed with CAD. FINDINGS: The patient presents today for a palpable mass within the right breast. Mammographic images show no suspicious mass underlying the area of palpable concern however there is a circumscribed round mass within the lateral right breast best seen on the MLO projection. No suspicious microcalcifications or areas of architectural distortion are identified. There is no skin thickening or nipple retraction. BREAST ULTRASOUND: FINDINGS: Grayscale sonographic images were obtained of the right breast. Color Doppler was utilized. Underlying the area of palpable concern at the 9:00 position, subareolar location is an anechoic simple cyst measuring 0.5 x 0.4 x 0.5 cm in size. Posterior acoustic enhancement is present. There is no overlying vascular flow. This is a benign finding and no additional follow-up is needed. At the 9:00 position, 8 cm from nipple is a circumscribed hypoechoic mass measuring 1.3 x 0.6 x 1.4 cm in size. There is no overlying vascular flow. This correlates with the mammographic findings. A morphologically normal lymph node is present within the right axilla. [facility] Donna Bravo MD - 07/05/2024 Patient Name: BRAULIO HARTLEY : 1985 Exam Date/Time: 07/05/2024 15:26 Procedure: BI US BREAST LIMITED RIGHT Ordering Provider: CIFUENTES LORALEE Reason For Exam: LUMP IN BREAST This exam was performed at [facility] [address] [place] [address] PATIENT CANCER HISTORY: No Personal History of Cancer FAMILY CANCER HISTORY: No Family History of Cancer COMPARISONS: None. MAMMOGRAM: Image views: 2D CC and MLO views were acquired. 3D CC and MLO views were acquired. Markings on images: BB's = Nipples; skin lesions Open nooksack = Palpable Line = Scar TISSUE DENSITY: BIRADS D - The breasts are extremely dense, which lowers the sensitivity of mammography. Images were reviewed with CAD. FINDINGS: The patient presents today for a palpable mass within the right breast. Mammographic images show no suspicious mass underlying the area of palpable concern however there is a circumscribed round mass within the lateral right breast best seen on the MLO projection. No suspicious microcalcifications or areas of architectural distortion are identified. There is no skin thickening or nipple retraction. BREAST ULTRASOUND: FINDINGS: Grayscale sonographic images were obtained of the right breast. Color Doppler was utilized. Underlying the area of palpable concern at the 9:00 position, subareolar location is an anechoic simple cyst measuring 0.5 x 0.4 x 0.5 cm in size. Posterior acoustic enhancement is present. There is no overlying vascular flow. This is a benign finding and no additional follow-up is needed. At the 9:00 position, 8 cm from nipple is a circumscribed hypoechoic mass measuring 1.3 x 0.6 x 1.4 cm in size. There is no overlying vascular flow. This correlates with the mammographic findings. A morphologically normal lymph node is present within the right axilla. IMPRESSION: Benign simple cyst underlying the area of palpable concern within the right breast. No additional follow-up is needed. 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 Short-term follow-up is recommended. ASSESSMENT: Category 3 Probably benign RECOMMENDATION: Breast ultrasound in 6 months Right CANCER RISK ASSESSMENT: This risk assessment is based on patient provided information collected in a risk survey taken at the time of this examination. LIFETIME BREAST CANCER RISK: Vahid 8: 12.74% - If greater than or equal to 20%, consider annual mammogram and annual screening Breast MRI or follow up in high risk clinic. Is the patient at elevated risk based on the HBOC criteria? No (Hereditary Breast and Ovarian Cancer) - If Yes, consider genetic counseling and testing with high risk follow up Is the patient at elevated risk based on the Puentes Syndrome criteria? No - If Yes, consider genetic counseling and testing with high risk follow up. Report Dictated on Electronically Signed By: Thuan Bravo MD Electronically Signed Date/Time: 07/05/2024 4:31 PM EDT [facility] Radiology Study observation (narrative) [facility] Abdomen Single Viewon 2024 Abdomen Single View [facility] Imaging Services [address] [place], [place] [id number] Abdomen Single View MR#: [id number] Acct: [id number] Name: BRAULIO HARTLEY Rep #: [id number] : 1985 F 38 From: Thuan Erickson MD PCP: Dr. Piedad Kimball MD Status: REG CLI Study: Abdomen Single View Date of Exam: 06/21/24 Exam# [id number] Ordering Dr: Rowena Maxwell EXAM: Abdomen single view CLINICAL HISTORY: Sitz marker day 5 COMPARISON: 06/19/2024 TECHNIQUE: 2 supine views of the abdomen and pelvis FINDINGS: Again no Sitz markers are present. No significant appearing fecal load. No gaseous distention of bowel. Intrauterine device and pelvic phleboliths again noted. RAD/Abdomen Single View IMPRESSION: Again no Sitz markers are present. Reading Location: [facility] CC: ASSISTANT PROFESSOR OF COMMUNICATION-C Rowena Maxwell; Dr. Piedad Kimball MD Plant Accountant: Signed Normal [facility] Abdomen Single Viewon 2024 Abdomen Single View [facility] Imaging Services [address] [place], [place] [address] Abdomen Single View MR#: [id number] Acct: [id number] Name: BRAULIO HODGE Rep #: [id number] : 1985 F 38 From: Thuan Erickson MD PCP: Dr. Piedad Kimball MD Status: REG CLI Study: Abdomen Single View Date of Exam: 06/19/24 Exam# [id number] Ordering Dr: Rowena Maxwell ASSISTANT PROFESSOR OF COMMUNICATIONWm Dillard EXAM: Abdomen single view CLINICAL HISTORY: Sitz marker day 3 COMPARISON: None available TECHNIQUE: Single supine view of the abdomen FINDINGS: No markers are present. Some gas and stool is seen in the colon. No significant appearing fecal load. Pelvic phleboliths incidentally noted. Intrauterine device. Visualized osseous structures appear within limits. RAD/Abdomen Single View IMPRESSION: No markers are present. Reading Location: [id number] CC: SARA Maxwell; Dr. Piedad Kimball MD Plant Accountant: Signed Normal [facility] Gastroenterology Visit Repor ton 06-14-2024 Gastroenterology Visit Report [facility] Gastroenterology [address] 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 Is patient in pain?: No Allergies No Known Allergies Allergy (Unverified 06/14/24 08:34) Medications ???Medication ???Instructions ???Recorded ???Confirmed ???Type omeprazole 20 mg capsule,delayed 20 mg PO QDAY PRN 06/14/24 5 History release PFSH Medical History (Updated 06/14/24 @ 09:27 by SARA Ruano) High cholesterol Breast lump Family History (Updated 06/14/24 @ 09:24 by Betty Paul) Grandmother IBS (irritable bowel syndrome) Rheumatoid arthritis Fibromyalgia Hypertension Mother Arthritis Fibromyalgia Rheumatoid arthritis Hypertension Father Hypertension Grandfather Hypertension Social History Smoking Status: Former smoker alcohol intake: never substance use type: does not use frequency: 3-4 times per week HPI HPI Chief Complaint: bowel issues my whole life Details: BRAULIO HARTLEY, is a 38 F who presents to the office today for CBC and CMP 05/03/2024 unremarkable including calcium - for several years she has had ongoing stomach issues - can go several days without a BM, abdominal pain and bloating adn then will have several days of diarrhea - typically rabbit turds or watery diarrhea - has abdominal cramping - cramping can be very intense - diarrhea can be so bad she fears having any accident - denies any weight loss - denies any bleeding - she has never had a colonoscopy - has tried increasing fiber - she had tried to pay close attention to food that trigger symptoms - water intake is good - close to a gallon a day - reducing red meat has helped with symptoms she has added fruit with breakfast - veggie intake is pretty standard - she tried Benefiber chews these did not help - HB in the evenings - reflux if she eats too late at night - she is prescribed Omeprazole but does not take often - Tums helps - denies any N/V ROS Const Constitutional: No fatigue, fever(s) or weight change ENT ENT: No difficulty swallowing Gastro GI: Positive for abdominal pain, bloating, constipation and heartburn; No belching, change in stool character, coffee ground emesis, cramping, diarrhea, difficulty swallowing, feeling full early, excessive flatus, incontinent of stools, Vomiting blood/hematemesis, Blood in stool, loose stools, Black,tarry stools, nausea/dyspepsia, pain with swallowing, vomiting or other Musc Musculoskeletal: No joint pain Skin Skin: No yellowing of the eye or itchy eyes Psych Psychiatric: No anxiety and No depression Endo Endocrine: No fatigue or weight change Aller/Imm Allergy/Immunologic: No itchy eyes Jeremiah/Lymp Hematologic/Lymphatic: No easy bleeding or easy bruising Exam Const General: cooperative, healthy appearing, no acute distress and well developed Nutritional Appearance: average body habitus and well nourished Orientation: alert and [facility] x3 [facility]: normocephalic Ears: hearing grossly normal bilaterally Mouth: moist mucous membranes Teeth and gingiva: dentition normal Eyes Conjunctivae: conjunctivae normal Sclera: sclerae normal Neck Neck: normal visual inspection, full ROM and trachea midline Resp Effort Inspection: normal respiratory effort, able to speak in complete sentences and symmetric chest movement Auscultation: Bilateral: Clear to Auscultation Cardio Palpation: normal PMI Rate: regular rate Rhythm: regular rhythm Heart Sounds: S1 normal and S2 normal GI Inspection: normal to inspection Auscultation: normal bowel sounds Palpation: soft and no hepatosplenomegaly Rectal Exam: deferred Skin General: no rashes or lesions noted and turgor normal Neuro General: patient alert and patient oriented x3 Cranial Nerves: other (CN's grossly intact, non-focal exam) Cognition: normal cognition Speech: speech normal Gait: normal gait Extrem General: normal to inspection (no edema noted) Psych Appearance: grossly normal and well kempt Affect: normal affect Attitude: cooperative Thought Process: normal Thought Content: normal Judgment: judgment good Assessment and Plan Assessment and Plan (1) GERD (gastroesophageal reflux disease): St (more content not included)... Normal [facility] CBC (H/H, RBC, INDICES, WBC, PLT)on 05-04-2024 Erythrocyte distribution width (RBC) [Ratio] 11.8 % Normal 11.0-15.0 [facility] Comment on above: Performed By: #### 7 600, 25061, 6979 #### [facility] [place] [address] Scheduling Specialist: Gallito Tovar MD Hematocrit (Bld) [Volume fraction] 43.2 % Normal 35.0-45.0 [facility] Comment on above: Performed By: #### 7 600, 35701, 5773 #### [facility] [place] [address] Scheduling Specialist: Gallito Tovar MD Hemoglobin (Bld) [Mass/Vol] 14.1 g/dL Normal 11.7-15.5 [facility] Comment on above: Performed By: #### 7 600, 47422, 1757 #### [facility] [place] [address] Scheduling Specialist: Gallito Tovar MD MCH (RBC) [Entitic mass] 28.0 pg Normal 27.0-33.0 [facility] Comment on above: Performed By: #### 7 600, 97506, 8274 #### [facility] of [place] [address] Scheduling Specialist: Gallito Tovar MD MCHC (RBC) [Mass/Vol] 32.6 g/dL Normal 32.0-36.[address] [facility] Comment on above: Result Comment: For adults, a slight decrease in the calculated MCHC value (in the range of 30 to 32 g/dL) is most likely not clinically significant; however, it should be interpreted with caution in correlation with other red cell parameters and the patient's clinical condition. Performed By: #### 7 600, , 1758 #### [facility] [place] [address] Scheduling Specialist: Gallito Tovar MD MCV (RBC) [Entitic vol] 85.9 fL Normal 80.0-100.0 [facility] Comment on above: Performed By: #### 7 600, , 1758 #### [facility] [place] [address] Scheduling Specialist: Gallito Tovar MD Platelet mean volume (Bld) [Entitic vol] 10.9 fL Normal 7.5-12.5 [facility] Comment on above: Performed By: #### 7 600, , 1758 #### [facility] [place] [address] Scheduling Specialist: Gallito Tovar MD Platelets (Bld) [#/Vol] 297 10*3/uL Normal 140-400 [facility] Comment on above: Performed By: #### 7 600, , 1758 #### [facility] [place] [address] Scheduling Specialist: Gallito Tovar MD RBC (Bld) [#/Vol] 5.03 10*6/uL Normal 3.80-5.10 [facility] Comment on above: Performed By: #### 7 600, , 1758 #### [facility] [place] [address] Scheduling Specialist: Gallito Tovar MD WBC (Bld) [#/Vol] 6.2 10*3/uL Normal 3.8-10.8 [facility] Comment on above: Performed By: #### 7 600, 63196, 1759 #### [facility] of [place] [address] Scheduling Specialist: Gallito Tovar MD [facility] 05-04-2024 Albumin [Mass/Vol] 5.4 g/dL High 3.6-5.1 [facility] Comment on above: Performed By: #### 7 600, 49811, 1759 #### [facility] of [place] [address] Scheduling Specialist: Gallito Tovar MD Albumin/Globulin [Mass ratio] 2.0 {ratio} Normal 1.0-2.5 [facility] Comment on above: Performed By: #### 7 600, 05461, 1758 #### [facility] of [place] [address] Scheduling Specialist: Gallito Tovar MD ALP [Catalytic activity/Vol] 35 U/L Normal 31-125 [facility] Comment on above: Performed By: #### 7 600, 76712, 175 #### [facility] [place] [address] Scheduling Specialist: Gallito Tovar MD ALT [Catalytic activity/Vol] 11 U/L Normal 6-29 [facility] Comment on above: Performed By: #### 7 600, 76429, 175 #### [facility] of [place] [address] Scheduling Specialist: Gallito Tovar MD AST [Catalytic activity/Vol] 14 U/L Normal 10-30 [facility] Comment on above: Performed By: #### 7 600, 89949, 175 #### [facility] of [place] [address] Scheduling Specialist: Gallito Tovar MD Bilirubin [Mass/Vol] 0.7 mg/dL Normal 0.2-1.2 [facility] Comment on above: Performed By: #### 7 600, 61356, 175 #### [facility] [address], [address] [place] [address] Scheduling Specialist: Gallito Tovar MD BUN/CREATININE RATIO SEE NOTE: Normal 6-22 [facility] Comment on above: Result Comment: Not Reported: BUN and Creatinine are within reference range. Performed By: #### 7 600, 59795, 175 #### [facility] of [address], [address] [place] [address] Scheduling Specialist: Gallito Tovar MD Calcium [Mass/Vol] 9.7 mg/dL Normal 8.6-10.2 [facility] Comment on above: Performed By: #### 7 600, 40605, 175 #### [facility] of [place] [address] Scheduling Specialist: Gallito Tovar MD Chloride [Moles/Vol] 100 mmol/L Normal 98-110 [facility] Comment on above: Performed By: #### 7 600, 92238, 175 #### [facility] [place] [address] Scheduling Specialist: Gallito Tovar MD CO2 [Moles/Vol] 28 mmol/L Normal 20-32 [facility] Comment on above: Performed By: #### 7 600, 55189, 175 #### [facility] of [place] [address] Scheduling Specialist: Gallito Tovar MD Creatinine [Mass/Vol] 0.76 mg/dL Normal 0.50-0.[address] [facility] [address] [facility] Comment on above: Performed By: #### 7 600, 67656, 175 #### [facility] of [place] [address] Scheduling Specialist: Gallito Tovar MD GFR/1.73 sq M.predicted among non-blacks MDRD (S/P/Bld) [Vol rate/Area] 104 mL/min/{1.73_m2} Normal > OR = 60 [facility] Comment on above: Performed By: #### 7 600, 14986, 175 #### [facility] of [address], [address] [place] [address] Scheduling Specialist: Gallito Tovar MD Globulin (S) [Mass/Vol] 2.7 g/dL Normal 1.9-3.7 [facility] Comment on above: Performed By: #### 7 600, 93873, 175 #### [facility] of [address], [address] [place] [address] Scheduling Specialist: Gallito Tovar MD Glucose [Mass/Vol] 83 mg/dL Normal 65-99 [facility] Comment on above: Result Comment: Fasting reference interval Performed By: #### 7 600, , 175 #### [facility] of [address], [address] [place] [address] Scheduling Specialist: Gallito Tovar MD Potassium [Moles/Vol] 4.3 mmol/L Normal 3.5-5.[address] [facility] [address] [facility] Comment on above: Performed By: #### 7 600, , 175 #### [facility] of [address], [address] [place] [address] Scheduling Specialist: Gallito Tovar MD Protein [Mass/Vol] 8.1 g/dL Normal 6.1-8.1 [facility] Comment on above: Performed By: #### 7 600, , 175 #### [facility] of [address], [address] [place] [address] Scheduling Specialist: Gallito Tovar MD Sodium [Moles/Vol] 137 mmol/L Normal 135-146 [facility] Comment on above: Performed By: #### 7 600, 29137, 175 #### [facility] of [place] [address] Scheduling Specialist: Gallito Tovar MD Urea nitrogen [Mass/Vol] 11 mg/dL Normal 7-25 [facility] Comment on above: Performed By: #### 7 600, 08858, 175 #### [facility] of [address], [address] [place] [address] Scheduling Specialist: Gallito Tovar MD LIPID PANEL, [facility] Cholesterol [Mass/Vol] 260 mg/dL High <200 [facility] Comment on above: Order Comment: 0 0 0 Performed By: #### 7 600, 05038, 1758 #### [facility] [address], [address] [place] [address] Scheduling Specialist: Gallito Tovar MD Cholesterol in HDL [Mass/Vol] 78 mg/dL Normal > OR = 50 [facility] Comment on above: Order Comment: 0 0 0 Performed By: #### 7 600, 09093, 1755 #### [facility] [place] [address] Scheduling Specialist: Gallito Tovar MD Cholesterol in LDL [Mass/Vol] 162 mg/dL High [facility] Comment on above: Order Comment: 0 0 0 Result Comment: Refe rence range: <100 Desirable range <100 mg/dL for primary prevention; <70 mg/dL for patients with CHD or diabetic patients with > or = 2 CHD risk factors. LDL-C is now calculated using the Umang-Wendi calculation, which is a validated novel method providing better accuracy than the Friedewald equation in the estimation of LDL-C. Umang SS et al. JACE. 2013;310(19): 9494-2332 (http://education.[employer]/faq/HQA225) Performed By: #### 7 600, [address], 1785 #### [facility] [place] [address] Scheduling Specialist: Gallito Tovar MD Cholesterol.total/Chol esterol in HDL [Mass ratio] 3.3 {ratio} Normal <5.0 [facility] Comment on above: Order Comment: 0 0 0 Performed By: #### 7 600, 10906, 7652 #### [facility] [address], [address] [place] [address] Scheduling Specialist: Gallito Tovar MD NON HDL CHOLESTEROL 182 mg/dL (calc) High <130 [facility] Comment on above: Order Comment: 0 0 0 Result Comment: For patients with diabetes plus 1 major ASCVD risk factor, treating to a non-HDL-C goal of <100 mg/dL (LDL-C of <70 mg/dL) is considered a therapeutic option. Performed By: #### 7 600, 18991, 1759 #### [facility] [address] [facility], [address] [place] [address] Scheduling Specialist: Gallito Tovar MD Triglyceride [Mass/Vol] 92 mg/dL Normal <150 [facility] Comment on above: Order Comment: 0 0 0 Performed By: #### 7 600, 65080, 1759 #### [facility] [address] [place] [address], [address] [place] [address] Scheduling Specialist: Gallito Tovar MD Vital Signs Date Time Vital Sign Value Performing Clinician Raghavendra duron 09-13-2024 08:11-0400 Body height 160.[address] Piedad Kimball MD Work Phone: [facility] 09-13-2024 08:11-0400 Body mass index (BMI) [Ratio] 22.8 kg/m2 Dr. Piedad Kimball MD Work Phone: [facility] 09-13-2024 08:11-0400 Body temperature 98.2 [degF] Dr. Piedad Kimball MD Work Phone: [facility] 09-13-2024 08:11-0400 Body weight 58.[address] Piedad Kimball MD Work Phone: [facility] 09-13-2024 08:11-0400 Diastolic blood pressure 82 mm[Hg] Dr. Piedad Kimball MD Work Phone: [facility] 09-13-2024 08:11-0400 Heart rate 74 /min Dr. Piedad Kimball MD Work Phone: [facility] 09-13-2024 08:11-0400 Respiratory rate 16 /min Dr. Piedad Kimball MD Work Phone: [facility] 09-13-2024 08:11-0400 SaO2% (BldA) [Mass fraction] 98 % Dr. Piedad Kimball MD Work Phone: [facility] 09-13-2024 08:11-0400 Systolic blood pressure 122 mm[Hg] Dr. Piedad Kimball MD Work Phone: [facility] 08-23-2024 07:40-0400 Body temperature 96.9 [degF] Dr. Piedad Kimball MD Work Phone: [facility] 08-23-2024 07:40-0400 Diastolic blood pressure 64 mm[Hg] Dr. Piedad Kimball MD Work Phone: [facility] 08-23-2024 07:40-0400 Heart rate 59 /min Dr. Piedad Kimball MD Work Phone: [facility] 08-23-2024 07:40-0400 Respiratory rate 16 /min Dr. Piedad Kimball MD Work Phone: [facility] 08-23-2024 07:40-0400 SaO2% (BldA) [Mass fraction] 100 % Dr. Piedad Kimball MD Work Phone: [facility] 08-23-2024 07:40-0400 Systolic blood pressure 97 mm[Hg] Dr. Piedad Kimball MD Work Phone: [facility] 08-23-2024 05:52-0400 Body height 160.[address] Piedad Kimball MD Work Phone: [facility] 08-23-2024 05:52-0400 Body mass index (BMI) [Ratio] 22 kg/m2 Dr. Piedad Kimball MD Work Phone: [facility] 08-23-2024 05:52-0400 Body weight 56.[address] Piedad Kimball MD Work Phone: [facility] 06-14-2024 08:39-0400 Body height 160.[address] Piedad Kimball MD Work Phone: [facility] 06-14-2024 08:39-0400 Body mass index (BMI) [Ratio] 22.4 kg/m2 Dr. Piedad Kimball MD Work Phone: [facility] 06-14-2024 08:39-0400 Body weight 57.[address] Piedad Kimball MD Work Phone: [facility] 06-14-2024 08:39-0400 Diastolic blood pressure 82 mm[Hg] Dr. Piedad Kimball MD Work Phone: [facility] 06-14-2024 08:39-0400 Heart rate 73 /min Dr. Piedad Kimball MD Work Phone: [facility] 06-14-2024 08:39-0400 Respiratory rate 16 /min Dr. Piedad Kimball MD Work Phone: [facility] 06-14-2024 08:39-0400 SaO2% (BldA) [Mass fraction] 98 % Dr. Piedad Kimball MD Work Phone: [facility] 06-14-2024 08:39-0400 Systolic blood pressure 117 mm[Hg] Dr. Piedad Kimball MD Work Phone: [facility] Encounters Encounter Date Encounter Type Care Provider Facility Start: 09-13-2024 End: 09-13-2024 Patient encounter procedure Rowena RUIZ -[facility] Work Phone: Start: 09-13-2024 End: 09-13-[address] Piedad Kimball MD Work Phone: [facility] Work Phone: Start: 09-08-2024 Encounter for other preprocedural examination Phillip [facility] Start: 08-23-2024 ambulatory Piedad Kimball Facility:[facility] Start: 08-23-2024 Non-patient / Non-visit Phillip Villa nd DO -[facility] Start: 08-23-2024 End: 08-23-2024 Admission to same day surgery center Phillip Shah DO -Endoscopy Work Phone: Start: 08-23-2024 End: 08-23-[address] Piedad Kimball MD Work Phone: [facility] Work Phone: Start: 07-27-2024 Encounter for genera l adult medical examination without abnormal findings Rowena Maxwell [facility] Start: 07-05-2024 End: 07-05-2024 ambulatory ALIDA CIFUENTES [facility] Start: 07-05-2024 End: 07-05-2024 Subsequent hospital visit by physician Alida Cifuentes PSYCH ASSISTANT - REHAB/PRE VOCATIONAL COUNSELOR Work Phone: [facility] Comment on above: Unspecified lump in the right breast, upper outer quadrant Start: 06-21-2024 End: 06-21-[address] Piedad Kimball MD Work Phone: [facility] Work Phone: Start: 06-21-2024 End: 06-21-2024 Patient encounter procedure Rowena RUIZ -Radiology, [facility] Work Phone: Start: 06-21-2024 End: 06-21-2024 ambulatory Rowena Maxwell Facility:[facility] Start: 06-19-2024 End: 06-19-[address] Piedad Kimball MD Work Phone: [facility] Work Phone: Start: 06-19-2024 End: 06-19-2024 Patient encounter procedure Rowena RUIZ -Radiology, [facility] Work Phone: Start: 06-19-2024 End: 06-19-2024 ambulatory Charlotte Landin Facility:[facility] Start: 06-14-2024 End: 06-14-2024 Patient encounter procedure Rowena RUIZ -[facility] Work Phone: Start: 06-14-2024 End: 06-14-2024 ambulatory Rowena Maxwell Facility:[facility] Start: 10-22-2021 End: 10-22-2021 Patient encounter procedure [facility], [facility] Procedures Date Procedure Procedure Detail Performing Clinician Start: 08-23-[address] Piedad Kimball MD Work Phone: Start: 07-05-2024 Us breast uni real t fausto with image limited Alida Cifuentes PSYCH ASSISTANT - REHAB/PRE VOCATIONAL COUNSELOR Work Phone: Start: 07-05-2024 Diagnostic mammograp hy computer-aided detcj bi Alida Darwin PSYCH ASSISTANT - REHAB/PRE VOCATIONAL COUNSELOR Work Phone: Start: 06-21-2024 Plain X-ray abdomen Dr. Piedad Kimball MD Work Phone: Start: 06-19-2024 Plain X-ray abdomen Dr. Piedad Kimball MD Work Phone: Start: 10-22-2021 Transvaginal echography Plan of Treatment Date Care Activity Detail Author Start: 09-08-2062 RSV Immunization for Adults (1 - 1-dose 75+ series) RSV Immunization for Adults (1 - 1-dose 75+ series) [facility] Start: 09-08-2037 Zoster Vaccines (1 of 2) Zoster Vaccines (1 of 2) [facility] Start: 11-27-2024 Influenza vaccination Influenza Vaccine (Season Ended) [facility] Start: 08-23-2024 Colonoscopy w/biopsy single/multiple COLONOSCOPY AND BIOPSY [facility] Start: 08-23-2024 Patient discharge [facility] Start: 05-18-2024 DTaP/Tdap/Td Vaccines (8 - Td or Tdap) DTaP/Tdap/Td Vaccines (8 - Td or Tdap) [facility] Start: 11-28-2023 COVID-19 Vaccine ( season) COVID-19 Vaccine ( season) [facility] Start: 09-08-2017 Screening for malignant neoplasm of cervix [facility] Start: 09-08-2008 Screening for malignant neoplasm of cervix Pap Smear [facility] Start: 09-08-2005 Hepatitis C screening Hepatitis C Screening [facility] Start: 09-08-2000 Varicella vaccination Varicella Vaccines (1 of 2 - 13+ 2-dose series) [facility] Start: 1999 Depression Screening Depression Screening [facility] Start: 1987 HIV screening HIV Screening [facility] Patient referral [facility] Work Phone: Immunizations Immunization Date Immunization Notes Care Provider Reina beauchamp 01-22-2022 influenza virus vacc ine, unspecified formulation Alida Cifuentes PSYCH ASSISTANT - REHAB/PRE VOCATIONAL COUNSELOR Work Phone: [facility] Payers Date Payer Category Payer Self-pay [id number] 2019 Commercial Managed C [facility] [employer] [id number] 2019 Private Health Insurance [id number] 2011 Unknown [id number] 2011 Unknown [id number] Unknown [id number] Unknown [id number] Unknown [id number] Unknown [id number] Unknown [id number] Unknown [id number] Social History Date Type Detail Facility Tobacco smoking status NHIS Unknown if ever smoked [facility] Work Phone: Start: 1985 Sex Assigned At Female [facility] Start: 06-14-2024 Tobacco smoking status NHIS Never smoked tobacco (finding) [facility] Start: 10-27-2021 End: 06-26-2024 Sex Female (finding) [facility] Start: 07-05-2024 End: 08-18-2024 Tobacco smoking status NHIS Ex-smoker [facility] History of tobacco use Current smoker [facility] History of tobacco use Cigarette Smoker [facility] Start: 07-05-2024 Tobacco use and exposure Smokeless tobacco non-user [facility] Start: 07-05-2024 History of Social function [facility] Start: 07-05-2024 Tobacco use panel [facility] Start: 1985 Sex assigned at Not on file [facility] NEGATED: Highlighted row Not [facility] Goals Date Patient Goal Desired Activity /State Mental Status Date Assessment Result Facility 08-23-2024 Cognitive function Voice/Name [facility] Work Phone: 08-23-2024 Cognitive function Patient Orimo tation Person;Place;Time [facility] Work Phone: Clinical Notes 09-08-2018 to 08-23-2024 Note Date & Type Note Facility 08-23-2024 Consult note [facility] 08-23-2024 Consult note Note Date/Time August 23, 2024 6:26am [facility] Medical Records Department [address] [place] [address] Pre-Anesthesia Evaluation 08/23/24 0622 MR#: [id number] Acct: [id number] Name: BRAULIO HARTLEY Rep #:[id number] : 1985 38 From: Reed Liz MD PCP: Dr. Piedad Kimball MD Status:REG S DC Y Race: C Location: [place] [address] ASA Classification* ASA Classification ASA Classification: 1 Assessment & Plan Anesthesia* Anesthesia Assessment Anesthesia Assessment: Discussed sedation and/or anesthesia options, risks, benefits, and alternatives with patient/parents/legal guardian/POA. Questions invited. The patient/parents/legal guardian/POA seems to understand and agrees to proceedwith anesthesia plan. Reviewed the physical assessment, medical history, allergy history and patient home medications list prior to surgery/procedure/anesthetic and documented any changes. Performed airway and anesthesia risk assessments. Anesthesia Type Anesthesia Type: MAC History Source History Obtained from:: Patient and Chart Anesthesia Focused Assessment* Temperature: 98.0 F Pulse Rate: 58 Blood Pressure: 104/64 Respiratory Rate: 16 Pulse Ox: 99 Oxygen Delivery Method: Room Air Airway Assessment Mouth opens: >3 cm Mallampati Score: I Teeth Condition: Intact Neck Range of motion (ROM): Full ROM Focused Labs Anesthesia Preop lab: CBC WBC 5.3 k/mm3 (4.4-11.0) 11/25/12 07:50 11/25/12 RBC 4.42 M/mm3 (4.2-5.4) 11/25/12 07:50 11/25/12 Hgb 12.3 g/dl (12.0-15.0) 11/25/12 07:50 11/25/12 Hct 36.6 % (37-47) L 11/25/12 07:50 11/25/12 Plt Count 219 K/mm3 (150-450) 11/25/12 07:50 11/25/12 CHEMISTRY Potassium 3.7 mmol/L (3.5-5.1) 11/25/12 07:50 11/25/12 Sodium 136 mmol/L (136-145) 11/25/12 07:50 11/25/12 Phosphorus 3.7 mg/dL (2.5-4.9) 11/25/12 07:50 11/25/12 BUN 10 mg/dL (7-18) 11/25/12 07:50 11/25/12 Creatinine 0.7 mg/dL (0.6-1.0) 11/25/12 07:50 11/25/12 Glucose 79 mg/dL (70-110) 11/25/12 07:50 11/25/12 COAG Urine Test Negative Negative 08/23/24 05:38 08/23/24 Pre-Assessment Diagnosis/Proposed Procedure Planned Operative Procedure(s): CSCOPE Anesthesia History Anesthesia History - account manager education: Anesthesia History - account manager education Hx Hospitalization No 08/18/24 11:49 Any Problems With Anesthesia No 08/18/24 11:49 Cholinesterase deficiency No 08/18/24 11:49 You/Your Family Experience No 08/18/24 11:49 fever (hyperthermia) with Relationship Recent Exposure to Contagious No 08/23/24 05:51 Disease Does patient have nerve No 08/18/24 11:49 stimulator Patient instructed to have device shut off --Does patient have Pacemaker No 08/23/24 05:52 or ICD? When Was Last Pacemaker Check QUESTION #4 FULL TEXT: You/Your Family Experience fever (hyperthermia) with Anesthesia Last Oral Intake Last Oral intake: Last Oral Intake NPO since 00:00 08/23/24 05:52 Meds taken in AM with sips of water? Meds patient instructed to take am of surgery PONV PONV - account manager education: PONV - account manager education Female Yes 08/18/24 11:49 HX of Motion Sickness Yes 08/18/24 11:49 HX of N/V After Surgery No 08/18/24 11:49 Non-Smoker Yes 08/18/24 11:49 Duration of Surgery greater No 08/18/24 11:49 than 60 minutes Number of Risk Factors 3 08/18/24 11:49 PONV Score Moderate Risk 08/18/24 11:49 Height & Weight Height & Weight: Anesthesia: Height & Weight Height 5 ft 3 in 08/23/24 05:52 Weight: 56.518 kg 08/23/24 05:52 Body Mass Index (BMI) 22.0 08/23/24 05:52 Respiratory Assessment Respiratory Assessment - account manager education: Respiratory Tract Infection Hx - account manager education Hx Respiratory Tract Infection No 08/18/24 11:49 STOP Sleep Apnea STOP Sleep Apnea - account manager education: STOP Sleep Apnea - account manager education Hx Hypertension No 08/18/24 11:49 Hx Sleep Apnea No 08/18/24 11:49 CPAP BIPAP Do you snore loudly (louder No 08/18/24 11:49 than talking or can be heard Do you often feel tired/ No 08/18/24 11:49 fatigued/ sleepy during daytime? Has anyone observed you stop No 08/18/24 11:49 breathing during sleep? STOP Results Negative 08/18/24 11:49 QUESTION #5 FULL TEXT : Do you snore loudly (louder than talking or can be heard through closed doors)? Tobacco Use History Tobacco Use History - account manager education: Tobacco Use History - account manager education Tobacco Use Smoking Status Former smoker 08/18/24 11:49 Hx Tobacco Use No 08/18/24 11:49 Years Smoking Packs Smoked per Day Smoking Cessation Date was Yes - quit smoking within 15 08/18/24 11:49 within the last 15 years years Hx Smoking Cessation Date Hx Smoking Cessation No 08/18/24 11:49 Counseling Hematologic Medial History Hematologic Hx - account manager education: Hematologic Medical Hx - general maintenance mechanic Hx of Blood Transfusion No 08/18/24 11:49 Hx of Transfusion in last 3 No 08/18/24 11:49 Months Date of Last Transfusion (if within last 3 months) Ever experience any problems No 08/18/24 11:49 with transfusion(s)? Specify any problems Hx of Preganancy in last 3 No 08/18/24 11:49 Months Nurse Filling Out Transfusion DSCHRIBER 08/18/24 11:49 & Questions: Date: 08/18/24 08/18/24 11:49 Time: 11:50 08/18/24 11:49 Patient unable to answer at this time (ie. confused, unrespo /Reproduction History /Reproductive History - account manager education: /Reproductive Hx- account manager education Hx Now No 08/18/24 11:49 Gestational Age (in weeks): EDC: Hx Hx Para Hx Section SAB No 08/18/24 11:49 Active Medications Active Medications: Current Medications Generic Name Dose Route Start Last Admin Trade Name Freq PRN Reason Stop Dose Admin Lactated Ringer's 1,000 mls @ 15 mls/hr 08/23/24 05:45 08/23/24 06:00 IV 15 mls/hr .Q48H GOMEZ Administration PFSH Medical History Wears glasses Wears contact lenses Migraine headache History of IBS Gastric reflux Former smoker Home Medications ?Medication ?Instructions ?Recorded ?Last Taken ?Type omeprazole 20 mg capsule,delayed 20 mg PO QDAY GERD #9 0 caps 06/14/24 08/22/24 Rx release [id number] 100 gram-sod sulf 7.5 See Rx Instructions PO P ER PKG DIR 08/22/24 Unknown Rx [id number]-LeUi-FEg-ascorbate-C oral #1 ea pwdr pack (MoviPrep) Allergy/AdvReac Type Severity Reaction Status Date / Time No Known Allergies Allergy Verified 08/23/24 05:49 Family History Grandmother IBS (irritable bowel syndrome) Rheumatoid arthritis Fibromyalgia Hypertension Mother Arthritis Fibromyalgia Rheumatoid arthritis Hypertension Father Hypertension Grandfather Hypertension Surgical History No history of previous surgery Hx of breast biopsy Social History Smoking Status: Never smoker alcohol intake: never substance use type: does not use frequency: 3-4 times per week Review of Systems (Anesthesia) ROS Narrative System reviewed and no additional complaints, except as documented. 08/23/24625 <Electronically signed by Reed benavides MD> Date _ Reed Liz MD Cosigner Signature: Date CC: ~ Signed [facility] Work Phone: 1(955) 768-949505-28-2025 Procedure note [facility] Medical Records Department [address] [place] [address] Colonoscopy Report MR#: [id number] Acct: [id number] Name: BRAULIO HARTLEY Rep #:[id number] : 1985 38 From: Phillip Friend DO PCP: Dr. Piedad Kimball MD Status:REG S DC Patient Name: Braulio Hartley Procedure Date: 08/23/2024 6:50 AM Date of : 1985 Age: 38 Procedure: Colonoscopy Indications: Generalized abdominal pain, Change in bowel habits, Constipation, Obstipation Providers: Phillip Shah DO Referring MD: Piedad Kimball Md Medicines: Monitored Anesthesia Care Patient Profile: This is a 38 year old female. Refer to note in patient chart for documentation of history and physical. Last Colonoscopy: none. The patient's first colonoscopy is today. Complications: No immediate complications. Procedure: Pre-Anesthesia Assessment: - Prior to the procedure, a History and Physical was performed, and patient medications and allergies were reviewed. The patient is competent. The risks and benefits of the procedure and the sedation options and risks were discussed with the patient. All questions were answered and informed consent was obtained. Patient identification and proposed procedure were verified by the physician in the pre-procedure area. Mental Status Examination: alert and oriented. Airway Examination: normal oropharyngeal airway and neck mobility. Respiratory Examination: clear to auscultation. CV Examination: normal. Prophylactic Antibiotics: The patient does not require prophylactic antibiotics. Prior Anticoagulants: The patient has taken no anticoagulant or antiplatelet agents except for NSAID medication. ASA Grade Assessment: II - A patient with mild systemic disease. After reviewing the risks and benefits, the patient was deemed in satisfactory condition to undergo the procedure. The anesthesia plan was to use monitored anesthesia care (MAC). Immediately prior to administration of medications, the patient was re-assessed for adequacy to receive sedatives. The heart rate, respiratory rate, oxygen saturations, blood pressure, adequacy of pulmonary ventilation, and response to care were monitored throughout the procedure. The physical status of the patient was re-assessed after the procedure. After I obtained informed consent, the scope was passed under direct vision. Throughout the procedure, the patient's blood pressure, pulse, and oxygen saturations were monitored continuously. The Colonoscope was introduced through the anus and advanced to the terminal ileum. The colonoscopy was performed without difficulty. The patient tolerated the procedure well. The quality of the bowel preparation was adequate. The terminal ileum, ileocecal valve, appendiceal orifice, and rectum were photographed. Scope In: 7:10:14 AM Scope Withdrawal Time 0 hours 6 minutes 51 seconds Scope Out: 7:20:58 AM Total Procedure Duration Time 0 hours 10 minutes 44 seconds Findings: The perianal and digital rectal examinations were normal. A 4 mm polyp was found in the hepatic flexure. The polyp was sessile. The polyp was removed with a jumbo cold forceps. Resection and retrieval were complete. Verification of patient identification for the specimen was done. Estimated blood loss was minimal. A benign-appearing, intrinsic mild stenosis measuring 1 cm (in length) was found at the hepatic flexure and was traversed. An area of mildly congested mucosa was found in the sigmoid colon, in the descending colon and at the hepatic flexure. Biopsies were taken with a cold forceps for histology. Verification of patient identification for the specimen was done. Localized mild inflammation characterized by erythema was found in the terminal ileum. Biopsies were taken with a cold forceps for histology. Verification of patient identification for the specimen was done. Verification of patient identification for the specimen was done. Estimated blood loss was minimal. Impression: - One 4 mm polyp at the hepatic flexure, removed with a jumbo cold forceps. Resected and retrieved. - Stricture at the hepatic flexure. - Congested mucosa in the sigmoid colon, in the descending colon and at the hepatic flexure. Biopsied. - Mild inflammation was found in the ileum secondary to ileitis. Biopsied. Recommendation: - Discharge patient to home. - Resume previous diet. - Continue present medications. - Await pathology results. - Repeat colonoscopy in 5 years for surveillance. - Return to GI office. Procedure Code(s): --- Professional --- 98533, Colonoscopy, flexible; with biopsy, single or multiple CPT copyright 2021 [employer]. All rights reserved. The codes documented in this report are preliminary and upon electron tube assembler review may be revised to meet current compliance requirements. Phillip Shah DO 08/23/2024 7:36:43 AM This report has been signed electronically. Number of Addenda: 0 Note Initiated On: 08/23/2024 6:50 AM 08/23/24 0737 Date _ Phillip Shah DO Cosigner Signature: Date (if indicated) CC: Dr. Piedad Kimball MD; Phillip Shah DO ~ Date Dictated: 08/23/2450 Date Transcribed: Plant Accountant: ARSENIO Signed [facility]05-28-2025 Procedure note [facility] Medical Records Department [address] [place] [address] Operative Report - CC Letter MR#: [id number] Acct: [id number] Name: BRAULIO HARTLEY Rep #:[id number] : 1985 38 From: Phillip Shah DO PCP: Dr. Piedad Kimball MD Status:REG S DC 08/23/2024 Piedad Kimball Md Re : Colonoscopy procedure for Braulio Hartley Dear Dr. Kimball This procedure was performed on Friday, August 23, 2024. My impressions and recommendations are as follows: Impressions : - One 4 mm polyp at the hepatic flexure, removed with a jumbo cold forceps. Resected and retrieved. - Stricture at the hepatic flexure. - Congested mucosa in the sigmoid colon, in the descending colon and at the hepatic flexure. Biopsied. - Mild inflammation was found in the ileum secondary to ileitis. Biopsied. Recommendations : - Discharge patient to home. - Resume previous diet. - Continue present medications. - Await pathology results. - Repeat colonoscopy in 5 years for surveillance. - Return to GI office. My findings are described in the full procedure note, which is enclosed. If I can be of further assistance, please feel free to contact me at . Sincerely, Phillip Shah DO 08/23/2024 7:36:43 AM This report has been signed electronically. 08/23/2437 Date _ Phillip Bales Signature: Date (if indicated) CC: Dr. Piedad Kimball MD; Phillip Shah DO ~ Date Dictated: 08/23/2450 Date Transcribed: Plant Accountant: ARSENIO Signed [facility]05-28-2025 Consult note [facility] Medical Records Department [address] [place] [address] Anesthesia Postop Eval I 08/23/24728 MR#: [id number] Acct: [id number] Name: BRAULIO HARTLEY Rep #:[id number] : 1985 38 From: Lucien Naqvi PCP: Dr. Piedad Kimball MD Status:REG S DC Y Race: C Location: [place] [address] Anesthesia: Postop Eval I Current Vital Signs Temperature: 97 F Pulse Rate: 79 Blood Pressure: 104/70 Respiratory Rate: 16 Pulse Ox: 100 Oxygen Delivery Method: Room Air Assessment Airway patent: Yes Spontaneous unlabored respirations: Yes Mental status: Awake and Calm nausea: No Vomiting: No Anesthesia Complication: No Fluid Hydration Crystalloid volume administer (ml): 400 Total IV fluid infused: 400 Progress Note Anesthesia document: Postop Eval 1 completed: Yes 08/23/24728 > Date _ Lucien Nascimento Signature: Date CC: ~ Signed [facility]05-28-2025 History and physical note [facility] Medical Records Department [address] [place] [address] History & Physical Exam 08/23/24 07 MR#: [id number] Acct: [id number] Name: BRAULIO HARTLEY Rep #:[id number] : 1985 38 From: Phillip Shah DO PCP: Dr. Piedad Kimball MD Status:REG S DC Location: [place] [address] HPI - General General Date of Admission: 08/23/24 Date of Service: 08/23/24 Chief Complaint: abdominal pain , GERD, constipation HPI Narrative BRAULIO HARTLEY, is a 38 F who presents for evaluation of abdominal pain, cramping, nausea and change inbowel habits with worsening constipation. r CBC and CMP 05/03/2024 unremarkable including calcium - for several years she has had ongoing stomach issues - can go several days without a BM, abdominal pain and bloating adn then will have several days of diarrhea - typically rabbit turds or watery diarrhea - has abdominal cramping - cramping can be very intense - diarrhea can be so bad she fears having any accident - denies any weight loss - denies any bleeding - she has never had a colonoscopy - has tried increasing fiber - she had tried to pay close attention to food that trigger symptoms - water intake is good - close to a gallon a day - reducing red meat has helped with symptoms she has added fruit with breakfast - veggie intake is pretty standard - she tried Benefiber chews these did not help - HB in the evenings - reflux if she eats too late at night - she is prescribed Omeprazole but does not take often - Tums helps - denies any N/V PFSH Medical History Wears glasses Wears contact lenses Migraine headache History of IBS Gastric reflux Former smoker Home Medications ?Medication ?Instructions ?Recorded ?Last Taken ?Type omeprazole 20 mg capsule,delayed 20 mg PO QDAY GERD #9 0 caps 06/14/24 08/22/24 Rx release [id number] 100 gram-sod sulf 7.5 See Rx Instructions PO P ER PKG DIR 08/22/24 Unknown Rx fykm-AnXx-VMx-ascorbate-C oral #1 ea pwdr pack (MoviPrep) Allergy/AdvReac Type Severity Reaction Status Date / Time No Known Allergies Allergy Verified 08/23/24 05:49 Family History Grandmother IBS (irritable bowel syndrome) Rheumatoid arthritis Fibromyalgia Hypertension Mother Arthritis Fibromyalgia Rheumatoid arthritis Hypertension Father Hypertension Grandfather Hypertension Surgical History No history of previous surgery Hx of breast biopsy Social History Smoking Status: Never smoker alcohol intake: never substance use type: does not use frequency: 3-4 times per week ROS Constitutional Constitutional: Denies fatigue, fever(s), poor appetite, weight gain or weight loss Gastrointestinal Gastrointestinal: Denies belching, bloating, change in bowel habits, change in stool character, chewing difficulty, coffee ground emesis, constipation, cramping, diarrhea, dyspepsia, dysphagia, earlysatiety, excessive flatus, fecalincontinence, heartburn, hematemesis, hematochezia, hemorrhoids, loose stools, melena, nausea, odynophagia, rectal bleeding, tenesmus, vomiting or weight changes Vital Signs Vital Signs Vital Signs: 08/23/24 05:51 08/23/24 05:52 08/23/24 06:26 Temperature 98.0 F 98.0 F Temperature Source Temporal Pulse Rate 58 L 58 L Respiratory Rate 16 16 Respiratory Pattern Normal Blood Pressure 104/64 104/64 Blood Pressure Mean 77 Blood Pressure Source Monitor Blood Pressure Position Semi-Fowlers Blood Pressure Location Left Arm Pulse Ox 99 99 Oxygen Delivery Method Room Air Room Air Weight Weight: 124 lb 9.6 oz Body Mass Index (BMI) 22.0 Physical Exam Const alert, oriented x3, no apparent distress and healthy appearing General Appearance: cooperative GI normal to inspection, nondistended, normoactive bowel sounds, soft to palpation,non-tender and non-distended Percussion: normal to percussion Rectal Exam: deferred Results Lab / Micro Data Labs: Laboratory Results - last 24 hr 08/23/24 05:38: Urine Test Negative Assessment & Plan Assessment/Plan (1) Abdominal cramping: (2) Abdominal pain: QUALIFIERS: Abdominal location: generalized Qualified Code(s): R10.84 - Generalized abdominal pain (3) Constipation: QUALIFIERS: Constipation type: unspecified constipation type Qualified Code(s): K59.00 - Constipation, unspecified (4) GERD (gastroesophageal reflux disease): QUALIFIERS: Esophagitis presence: esophagitis presence not specified Qualified Code(s): K21.9 - Gastro-esophageal reflux disease without esophagitis (5) IBS (irritable bowel syndrome): PLAN: Assessment and Plan Assessment and Plan (1) GERD (gastroesophageal reflux disease): Status: Acute Qualifiers: Esophagitis presence: esophagitis presence not specified Qualified Code(s): K21.9 - Gastro-esophageal reflux disease without esophagitis (2) Constipation: Status: Acute Qualifiers: Constipation type: unspecified constipation type Qualified Code(s): K59.00 - Constipation, unspecified (3) Abdominal pain: Status: Acute Qualifiers: Abdominal location: generalized Qualified Code(s): R10.84 - Generalizedabdominal pain (4) Abdominal cramping: Status: Acute Plan 38y/o female presents for initial consultation with complaints of heartburn, constipation and diarrhea. Heartburn symptoms are intermittent and exacerbated with alcohol and late night eating. We havediscussed GERD recommendations and Ihave encouraged her to complete an 8 week course of Omeprazole 20mg daily. She reports a long history of alternating constipation and diarrhea associated with abdominal pain and cramping. Stools are either hard small balls or urgent waterydiarrhea. She prefers not to take any medications if possible. I have recommended a high fiber diet with the addition of daily fiber supplement and probiotic. She will complete Sitz Marker testing and colonoscopy. CBC and CMP were unremarkable 05/03/2024, if she has not had a recent TSH, I recommend she have this completed. A total of 60 minutes was spent on this visit reviewing [employer] and/or [employer] for associated records; previous notes (CBC, CMP 05/03/2024), counseling the patient on (high fiber diet, GERD diet, benefits of fiber supplements and probiotics, [facility] PPI recommendation), ordering tests (sitz marker, colonoscopy), adjusting meds (Omeprazole, FiberCon and Probiotic), importance of compliance with treatmentand documenting the findings in the note. Patient Instructions: - Complete Sitz Marker study - FiberCon 2 tablets once daily with 8 ounces of water after a meal. May take upto 3 weeks for symptom improvement. - Start a probiotic (DistalMotion, Hamilton Thorne or Compellon) once daily. These are all multispecies probiotics, pick the cheapest one. - Omeprazole 20mg daily, take 30 minutes before breakfast daily for 8 weeks. If symptoms are persisting or return with discontinuing will schedule EGD. - Follow-up in the office post colonoscopy IBS includes symptoms such as abdominal pain, bloating, diarrhea, constipation or mixed bowel habits. Patients can also experience small intestinal bacterial overgrowth (SIBO), food sensitivities exacerbating symptoms. Making dietary changes with a low FODMAP diet, gluten free diet or antiinflammatory diet have shown to be beneficial as well as taking a daily probiotic. Physical activity and stress management are also important in managing your gut health; as this helps regulate autonomic function and improve gut motility. Studies show yoga, walking, meditation, relaxation techniques, mindfulness and deep breathing exercises are also beneficial for gut health. If you are not already taking a probiotic, I recommend a once daily multispeciesprobiotic such as Align, Culturelle or Levy Colon Health. In addition to a probiotic, I recommend a daily fiber supplement such as FiberCon tablets. Takingtwo FiberCon tablets once daily helps with both constipation(by softening stools and promoting movement) and diarrhea (by absorbing excess fluid and firming stools). Fiber helps maintain regular bowel movements which create a more balanced gut environment andcan help reduce gut irritation and bloating. Consistent fiber intake can support beneficial bacteria by promoting gut motility and reducing stagnation of waste. Incorporating a fiber and probiotic supplement paired with lifestyle changes such as hydration (aim for at least 64 ounces daily), movement and a balanced diet may take up to three weeks to show noticeable benefits. Consistency is jarquin in allowing the gut time to adapt. The gut-brain axis plays a significant role, and effective treatmentrequires a multifaceted approach that goes beyond medications alone. While pharmacological therapy can be beneficial, the greatest impact comes from a comprehensive, whole-body approach that includesdietary modifications, stress management, physical activity, and gut health optimization. Addressing these factors together helps improve overall well-being and symptom management. PPIs are the most effective medical treatment for GERD. Some medical studies have identified an association between the long-term use of PPIs and the development of numerous adverse conditions including intestinal infections, pneumonia, stomach cancer, osteoporosis-related bone fractures, chronic kidney disease, deficiencies of certain vitamins and minerals, heart attacks, strokes, dementia, and early . Those studies have flaws, are not considered definitive, and do not establish a ykhaa-dva-bapznf relationship between PPIs and the adverse conditions. High-quality studies have found thatPPIs do not significantly increase the risk of any of these conditions except intestinal infections. Nevertheless, we cannot exclude the possibility that PPIs might confer a small increase in the risk of developing these adverse conditions. For the treatment of GERD, gastroenterologists generally agree that the well- established benefits of PPIs far outweigh their theoretical risks. Coding Level of Care Code Attention [employer] Diagnoses Gastroesophageal reflux disease, unspecified whether esophagitis present K21.9 Esophagitis presence: esophagitis presence not specified Constipation, unspecified constipation type K59.00 Constipation type: unspecified constipation type Generalized abdominal pain R10.84 Abdominal location: generalized Abdominal cramping R10.9 08/23/24 0722 Cosigner Signature (if applicable): CC: Dr. Piedad Kimball MD; Phillip Shah, ~ Signed [facility]05-28-2025 [facility] Medical Records Department [address] [place] [address] History Physical Exam 08/23/24 0701 MR#: [id number] Acct: [id number] Name: BRAULIO HARTLEY Rep #: [id number] : 1985 38 From: Phillip Shah DO PCP: Dr. Piedad Kimball MD [place] [facility] [place] [address] HPI - General General Date of Admission: 08/23/24 Date of Service: 08/23/24 Chief Complaint: abdominal pain , GERD, constipation HPI Narrative BRAULIO HARTLEY, is a 38 F who presents for evaluation of abdominal pain, cramping, nausea and change in bowel habits with worsening constipation. r CBC and CMP 05/03/2024 unremarkable including calcium - for several years she has had ongoing stomach issues - can go several days without a BM, abdominal pain and bloating adn then will have several days of diarrhea - typically rabbit turds or watery diarrhea - has abdominal cramping - cramping can be very intense - diarrhea can be so bad she fears having any accident - denies any weight loss - denies any bleeding - she has never had a colonoscopy - has tried increasing fiber - she had tried to pay close attention to food that trigger symptoms - water intake is good - close to a gallon a day - reducing red meat has helped with symptoms she has added fruit with breakfast - veggie intake is pretty standard - she tried Benefiber chews these did not help - HB in the evenings - reflux if she eats too late at night - she is prescribed Omeprazole but does not take often - Tums helps - denies any N/V PFSH Medical History Wears glasses Wears contact lenses Migraine headache History of IBS Gastric reflux Former smoker Home Medications ???Medication ???Instructions ???Recorded ???Last Taken ???Type omeprazole 20 mg capsule,delayed 20 mg PO QDAY GERD #90 caps 08/22/24 Rx release [id number] 100 gram-sod sulf 7.5 See Rx Instructions PO PER PKG DIR 08/22/24 Unknown Rx siug-WiDm-KCs-ascorbate-C oral #1 ea pwdr pack (MoviPrep) Allergy/AdvReac Type Severity Reaction Status Date / Time No Known Allergies Allergy Verified 08/23/24 05:49 Family History Grandmother IBS (irritable bowel syndrome) Rheumatoid arthritis Fibromyalgia Hypertension Mother Arthritis Fibromyalgia Rheumatoid arthritis Hypertension Father Hypertension Grandfather Hypertension Surgical History No history of previous surgery Hx of breast biopsy Social History Smoking Status: Never smoker alcohol intake: never substance use type: does not use frequency: 3-4 times per week ROS Constitutional Constitutional: Denies fatigue, fever(s), poor appetite, weight gain or weight loss Gastrointestinal Gastrointestinal: Denies belching, bloating, change in bowel habits, change in stool character, chewing difficulty, coffee ground emesis, constipation, cramping, diarrhea, dyspepsia, dysphagia, early satiety, excessive flatus, fecal incontinence, heartburn, hematemesis, hematochezia, hemorrhoids, loose stools, melena, nausea, odynophagia, rectal bleeding, tenesmus, vomiting or weight changes Vital Signs Vital Signs Vital Signs: 08/23/24 05:51 08/23/24 05:52 08/23/24 06:26 Temperature 98.0 F 98.0 F Temperature Source Temporal Pulse Rate 58 L 58 L Respiratory Rate 16 16 Respiratory Pattern Normal Blood Pressure 104/64 104/64 Blood Pressure Mean 77 Blood Pressure Source Monitor Blood Pressure Position Semi-Fowlers Blood Pressure Location Left Arm Pulse Ox 99 99 Oxygen Delivery Method Room Air Room Air Weight Weight: 124 lb 9.6 oz Body Mass Index (BMI) 22.0 Physical Exam Const alert, oriented x3, no apparent distress and healthy appearing General Appearance: cooperative GI normal to inspection, nondistended, normoactive bowel sounds, soft to palpation, non-tender and non- distended Percussion: normal to percussion Rectal Exam: deferred Results Lab / Micro Data Labs: Laboratory Results - last 24 hr 08/23/24 05:38: Urine Test Negative Assessment Plan Assessment/Plan (1) Abdominal cramping: (2) Abdominal pain: QUALIFIERS: Abdominal location: generalized Qualified Code(s): R10.84 - Generalized abdominal pain (3) Constipation: QUALIFIERS: Constipation type: unspecified constipation type Qualified Code(s): K59.00 - Constipation, unspecified (4) GERD (gastroesophageal reflux disease): QUALIFIERS: Esophagitis presence: esophagitis presence not specified Qualified Code(s): K21.9 - Gastro-esophageal reflux disease without esophagitis (5) IBS (irritable bowel syndrome): PLAN: Assessment and (more content not included)...[facility] 08-23-2024 Consult note [facility] Medical Records Department [address] [place] [address] Pre-Anesthesia Evaluation 08/23/24 06 MR#: [id number] Acct: [id number] Name: BRAULIO HARTLEY Rep #:[id number] : 1985 38 From: Reed Liz MD PCP: Dr. Piedad Kimball MD Status:REG S DC Y Race: C Location: [place] [address] ASA Classification* ASA Classification ASA Classification: 1 Assessment & Plan Anesthesia* Anesthesia Assessment Anesthesia Assessment: Discussed sedation and/or anesthesia options, risks, benefits, and alternatives with patient/parents/legal guardian/POA. Questions invited. The patient/parents/legal guardian/POA seems to understand and agrees to proceedwith anesthesia plan. Reviewed the physical assessment, medical history, allergy history and patient home medications list prior to surgery/procedure/anesthetic and documented any changes. Performed airway and anesthesia risk assessments. Anesthesia Type Anesthesia Type: MAC History Source History Obtained from:: Patient and Chart Anesthesia Focused Assessment* Temperature: 98.0 F Pulse Rate: 58 Blood Pressure: 104/64 Respiratory Rate: 16 Pulse Ox: 99 Oxygen Delivery Method: Room Air Airway Assessment Mouth opens: >3 cm Mallampati Score: I Teeth Condition: Intact Neck Range of motion (ROM): Full ROM Focused Labs Anesthesia Preop lab: CBC WBC 5.3 k/mm3 (4.4-11.0) 11/25/12 07:50 11/25/12 RBC 4.42 M/mm3 (4.2-5.4) 11/25/12 07:50 11/25/12 Hgb 12.3 g/dl (12.0-15.0) 11/25/12 07:50 11/25/12 Hct 36.6 % (37-47) L 11/25/12 07:50 11/25/12 Plt Count 219 K/mm3 (150-450) 11/25/12 07:50 11/25/12 CHEMISTRY Potassium 3.7 mmol/L (3.5-5.1) 11/25/12 07:50 11/25/12 Sodium 136 mmol/L (136-145) 11/25/12 07:50 11/25/12 Phosphorus 3.7 mg/dL (2.5-4.9) 11/25/12 07:50 11/25/12 BUN 10 mg/dL (7-18) 11/25/12 07:50 11/25/12 Creatinine 0.7 mg/dL (0.6-1.0) 11/25/12 07:50 11/25/12 Glucose 79 mg/dL (70-110) 11/25/12 07:50 11/25/12 COAG Urine Test Negative Negative 08/23/24 05:38 08/23/24 Pre-Assessment Diagnosis/Proposed Procedure Planned Operative Procedure(s): CSCOPE Anesthesia History Anesthesia History - account manager education: Anesthesia History - account manager education Hx Hospitalization No 08/18/24 11:49 Any Problems With Anesthesia No 08/18/24 11:49 Cholinesterase deficiency No 08/18/24 11:49 You/Your Family Experience No 08/18/24 11:49 fever (hyperthermia) with Relationship Recent Exposure to Contagious No 08/23/24 05:51 Disease Does patient have nerve No 08/18/24 11:49 stimulator Patient instructed to have device shut off --Does patient have Pacemaker No 08/23/24 05:52 or ICD? When Was Last Pacemaker Check QUESTION #4 FULL TEXT: You/Your Family Experience fever (hyperthermia) with Anesthesia Last Oral Intake Last Oral intake: Last Oral Intake NPO since 00:00 08/23/24 05:52 Meds taken in AM with sips of water? Meds patient instructed to take am of surgery PONV PONV - account manager education: PONV - account manager education Female Yes 08/18/24 11:49 HX of Motion Sickness Yes 08/18/24 11:49 HX of N/V After Surgery No 08/18/24 11:49 Non-Smoker Yes 08/18/24 11:49 Duration of Surgery greater No 08/18/24 11:49 than 60 minutes Number of Risk Factors 3 08/18/24 11:49 PONV Score Moderate Risk 08/18/24 11:49 Height & Weight Height & Weight: Anesthesia: Height & Weight Height 5 ft 3 in 08/23/24 05:52 Weight: 56.518 kg 08/23/24 05:52 Body Mass Index (BMI) 22.0 08/23/24 05:52 Respiratory Assessment Respiratory Assessment - account manager education: Respiratory Tract Infection Hx - account manager education Hx Respiratory Tract Infection No 08/18/24 11:49 STOP Sleep Apnea STOP Sleep Apnea - account manager education: STOP Sleep Apnea - account manager education Hx Hypertension No 08/18/24 11:49 Hx Sleep Apnea No 08/18/24 11:49 CPAP BIPAP Do you snore loudly (louder No 08/18/24 11:49 than talking or can be heard Do you often feel tired/ No 08/18/24 11:49 fatigued/ sleepy during daytime? Has anyone observed you stop No 08/18/24 11:49 breathing during sleep? STOP Results Negative 08/18/24 11:49 QUESTION #5 FULL TEXT : Do you snore loudly (louder than talking or can be heard through closeddoors)? Tobacco Use History Tobacco Use History - account manager education: Tobacco Use History - account manager education Tobacco Use Smoking Status Former smoker 08/18/24 11:49 Hx Tobacco Use No 08/18/24 11:49 Years Smoking Packs Smoked per Day Smoking Cessation Date was Yes - quit smoking within 15 08/18/24 11:49 within the last 15 years years Hx Smoking Cessation Date Hx Smoking Cessation No 08/18/24 11:49 Counseling Hematologic Medial History Hematologic Hx - account manager education: Hematologic Medical Hx - general maintenance mechanic Hx of Blood Transfusion No 08/18/24 11:49 Hx of Transfusion in last 3 No 08/18/24 11:49 Months Date of Last Transfusion (if within last 3 months) Ever experience any problems No 08/18/24 11:49 with transfusion(s)? Specify any problems Hx of Preganancy in last 3 No 08/18/24 11:49 Months Nurse Filling Out Transfusion DSCHRIBER 08/18/24 11:49 & Questions: Date: 08/18/24 08/18/24 11:49 Time: 11:50 08/18/24 11:49 Patient unable to answer at this time (ie. confused, unrespo /Reproduction History /Reproductive History - account manager education: /Reproductive Hx- account manager education Hx Now No 08/18/24 11:49 Gestational Age (in weeks): EDC: Hx Hx Para Hx Section SAB No 08/18/24 11:49 Active Medications Active Medications: Current Medications Generic Name Dose Route Start Last Admin Trade Name Freq PRN Reason Stop Dose Admin Lactated Ringer's 1,000 mls @ 15 mls/hr 08/23/24 05:45 08/23/24 06:00 IV 15 mls/hr .Q48H GOMEZ Administration PFSH Medical History Wears glasses Wears contact lenses Migraine headache History of IBS Gastric reflux Former smoker Home Medications ?Medication ?Instructions ?Recorded ?Last Taken ?Type omeprazole 20 mg capsule,delayed 20 mg PO QDAY GERD #9 0 caps 06/14/24 08/22/24 Rx release [id number] 100 gram-sod sulf 7.5 See Rx Instructions PO P ER PKG DIR 08/22/24 Unknown Rx ioab-RzXv-KAl-ascorbate-C oral #1 ea pwdr pack (MoviPrep) Allergy/AdvReac Type Severity Reaction Status Date / Time No Known Allergies Allergy Verified 08/23/24 05:49 Family History Grandmother IBS (irritable bowel syndrome) Rheumatoid arthritis Fibromyalgia Hypertension Mother Arthritis Fibromyalgia Rheumatoid arthritis Hypertension Father Hypertension Grandfather Hypertension Surgical History No history of previous surgery Hx of breast biopsy Social History Smoking Status: Never smoker alcohol intake: never substance use type: does not use frequency: 3-4 times per week Review of Systems (Anesthesia) ROS Narrative System reviewed and no additional complaints, except as documented. 08/23/24625 makayla DOUGLAS> Date _ Reed Liz MD Cosigner Signature: Date CC: ~ Signed [facility]03-26-2025 Radiology Diagnostic study note [facility] Imaging Services [address] [place] [address] Abdomen Single View MR#: [id number] Acct: [id number] Name: BRAULIO HARTLEY Rep #: [id number] : 1985 F 38 From: Gsutavo Erickson MD PCP: Dr. Piedad Kimball MD Status: REG C Study:Abdomen Single View Date of Exam: 06/21/24 Exam# [id number] Ordering Dr: Rowena Maxwell ASSISTANT PROFESSOR OF COMMUNICATION-Gilma EXAM: Abdomen single view CLINICAL HISTORY: Sitz marker day 5 COMPARISON: 06/19/2024 TECHNIQUE: 2 supine views of the abdomen and pelvis FINDINGS: Again no Sitz markers are present. No significant appearing fecal load. No gaseous distention of bowel. Intrauterine device and pelvic phleboliths again noted. RAD/Abdomen Single View IMPRESSION: Again no Sitz markers are present. Reading Location: [facility] CC: ASSISTANT PROFESSOR OF COMMUNICATION-C Rowena Maxwell; Dr. Piedad Kimball MD ~ Plant Accountant: Signed [facility]03-25-2025 Radiology Diagnostic study note [facility] Imaging Services [address] [place] [address] Abdomen Single View MR#: [id number] Acct: [id number] Name: BRAULIO HODGE Rep #: [id number] : 1985 F 38 From: Gustavo Erickson MD PCP: Dr. Piedad Kimball MD Status: REG C Study:Abdomen Single View Date of Exam: 06/19/24 Exam# [id number] Ordering Dr: Rowena Maxwell EXAM: Abdomen single view CLINICAL HISTORY: Sitz marker day 3 COMPARISON: None available TECHNIQUE: Single supine view of the abdomen FINDINGS: No markers are present. Some gas and stool is seen in the colon. No significant appearing fecal load. Pelvic phleboliths incidentally noted. Intrauterine device. Visualized osseous structures appear within limits. RAD/Abdomen Single View IMPRESSION: No markers are present. Reading Location: [id number] CC: SARA Maxwell; Dr. Piedad Kimball MD ~ Plant Accountant: Signed [facility]03-19-2025 Evaluation note* Diagnosis Onset Date Resolution Status Admit Date Abdominal cramping acute June 14, 2024 8:09am Abdominal pain acute May 8:09am Constipation acute June 14, 2024 8:09am GERD (gastroesophageal reflu x disease) acute June 14, 2024 8:09am [facility] Work Phone: 1(571) 967-829503-19-2025 Evaluation note* Diagnosis Onset Date Resolution Status Admit Date Abdominal cramping acute June 14, 2024 8:09am Abdominal pain acute May 8:09am Constipation acute June 14, 2024 8:09am GERD (gastroesophageal reflu x disease) acute June 14, 2024 8:09am Abdominal cramping acute August 232024 5:22am Abdominal pain acute August 23, 2024 5:22am Constipation acute August 23 5:22am GERD (gastroesophageal reflu x disease) acute August 23, 2024 5 :22am IBS (irritable bowel syndrome) acute August 23, 2024 5:22am [facility] Work Phone: [phone]) 875-379610-28-2021 NotePatient Outreach (NETNAV) BRAULIO HODGE ([id number]) 1985 F Date Time Provider Department 01/23/21 JUAN RAMON REYEZ During your visit today, we recorded the following information about you: Juan Ramon Reyez Population Health Navigator 01/23/2021 10:16 AM Signed POPULATION HEALTH NAVIGATION OUTREACH Action/FYI I left a voice message re: pcp No care everywhere Contact made with patient or family member? NO Pt identified by name and : NO Outreach Outcome/Action Unable to reach patient: Left message Reason for Outreach Attribution: Provider Off-boarding Payer: Payor: BOB / Plan: BLUE ACCESS PPO / Product Type: PPO / Care Gap Reviewed:: Reminder: Reminder note to check Health Maintenance for items below Health Maintenance items due: DEPRESSION SCREENING Never done COVID-19 VACCINE(1) Never done HEPATITIS C SCREENING Never done HIV SCREENING Never done HPV TESTING Never done DTAP,TDAP,TD(7 - Td or Tdap) due on 05/27/2020 INFLUENZA(1) due on 11/27/2020 PAP TESTING due on 03/19/2021 Advanced Directives Completed: Have you ever planned for future healthcare decisions with a power of personal injury attorney, living will, or advance directives? No. Please bring a copy to your next appointment or email to Referrals: N/A Message Sent to Practice: NO Navigation Signature: Juan Ramon Reyez Population Health Navigator January 23, 2021 10:16 AM Allergies As of Date: 01/23/2021 (No Known Allergies) Date Reviewed: 05/02/2016 Reviewed by: Mariah Meza LPN - Fully Assessed Reason for Visit: Population Health Navigation Outreach [3910] Cmt: Offboarding Prescriptions as of 01/23/2021 - predniSONE 10 mg tablet TAKE BY MOUTH (4) TABS FOR (3) DAYS THEN (3) TABS FOR (3) DAYS THEN (2) TABS FOR (3) DAYS THEN (1) TAB FOR (3) DAYS - triamcinolone acetonide 0.1 % cream Apply 1 application to affected area twice daily. - ETONOGESTREL/ETHINYL ESTRADIOL (NUVARING VAGINAL) Use vaginally as directed. Problem List As Of Date 01/23/2021 Noted Resolved Lump or Mass in Breast [N63.0] 05/02/2009 Migraine headache [G43.909] 06/18/2010 Chronic daily headache [R51.9] 06/18/2010 Encounter Status:Closed by AISSATOU POPULATION HEALTH NAVIGATOR, JUAN RAMON Reece on 01/23/21[facility]10-28-2021 NoteHNO ID: [id number] Author: Juan Ramon [facility] Service: ? Author Type: ? Type: Progress Notes Filed: 01/23/2021 10:16 AM Note Text: POPULATION HEALTH NAVIGATION OUTREACH Action/FYI I left a voice message re: pcp No care everywhere Contact made with patient or family member? NO Pt identified by name and : NO Outreach Outcome/Action Unable to reach patient: Left message Reason for Outreach Attribution: Provider Off-boarding Payer: Payor: BOB / Plan: BLUE ACCESS PPO / Product Type: PPO / Care Gap Reviewed:: Reminder: Reminder note to check Health Maintenance for items below Health Maintenance items due: DEPRESSION SCREENING Never done COVID-19 VACCINE(1) Never done HEPATITIS C SCREENING Never done HIV SCREENING Never done HPV TESTING Never done DTAP,TDAP,TD(7 - Td or Tdap) due on 05/27/2020 INFLUENZA(1) due on 11/27/2020 PAP TESTING due on 03/19/2021 Advanced Directives Completed: Have you ever planned for future healthcare decisions with a power of personal injury attorney, living will, or advance directives? No. Please bring a copy to your next appointment or email to Referrals: N/A Message Sent to Practice: NO Navigation Signature: Juan Ramon Reyez Population Health Navigator January 23, 2021 10:16 [facility]06-13-2019 Consult note Author Lucien Naqvi [facility] Note Date/Time August 23, 2024 7:29a leny [facility] Medical Records Department [address] [place] [address] Anesthesia Postop Eval I 08/23/24728 MR#: [id number] Acct: [id number] Name: BRAULIO HARTLEY Rep #:[id number] : 1985 38 From: Lucien Naqvi PCP: Dr. Piedad Kimball MD Status:REG S DC Y Race: C Location: [place] [address] Anesthesia: Postop Eval I Current Vital Signs Temperature: 97 F Pulse Rate: 79 Blood Pressure: 104/70 Respiratory Rate: 16 Pulse Ox: 100 Oxygen Delivery Method: Room Air Assessment Airway patent: Yes Spontaneous unlabored respirations: Yes Mental status: Awake and Calm nausea: No Vomiting: No Anesthesia Complication: No Fluid Hydration Crystalloid volume administer (ml): 400 Total IV fluid infused: 400 Progress Note Anesthesia document: Postop Eval 1 completed: Yes 08/23/24728 <Electronically signed by Lucien Naqvi > Date _ Lucien Nascimento Signature: Date CC: ~ Signed [facility] Work Phone: Consult note Author Elisabet Pinto [facility] Note Date/Time August 23, 2024 8:[address] [facility] Medical Records Department [address] [place] [address] Anesthesia Postop Eval II 08/23/24812 MR#: [id number] Acct: [id number] Name: BRAULIO HARTLEY Rep #:[id number] : 1985 38 From: Elisabet Pinto PCP: Dr. Piedad Kimball MD Status:REG S DC Y Race: C Location: [place] [address] Anesthesia Postop Eval I Sum Postop Eval Completion status Anesthesia document: Postop Eval 1 completed: Yes Anesthesia Postop Eval I Summary Anesthesia Postop Eval I Summary: Anesthesia Postop Eval I: Assessment Summary Airway patent Yes 08/23/24 07:29 [email or web address] Spontaneous unlabored Yes 08/23/24 07:29 [email or web address] respirations Mental status Awake,Calm 08/23/24 07:29 [email or web address] nausea No 08/23/24 07:29 [email or web address] Vomiting No 08/23/24 07:29 [email or web address] Anesthesia Postop Eval I: Fluid Summary Crystalloid volume administer 400 08/23/24 07:29 [email or web address] (ml) Colloids volume administered ( ml) Blood Product volume administered (ml) Total IV fluid infused 400 08/23/24 07:29 [email or web address] Anesthesia Postop Eval I: Summary Notes Anesthesia Complication No 08/23/24 07:29 [email or web address] Anesthesia Complication Comment: Post-operative progress note Anesthesia: Postop Eval II Evaluation Mental status: Awake Pain Level: 0 nausea: No Vomiting: No 08/23/24 0813 <Electronically signed by Elisabet herring> Date _ Elisabet Nascimento Signature: Date CC: ~ Signed [facility] Work Phone: Evaluation noteNo assessment information available [facility] Work Phone: Evaluation note* Diagnosis Unspecified lump in the right breast, upper outer quadrant documented in this encounter [facility] Author Phillip Friend [facility] Note Date/Time August 23, 2024 7:22a m [facility] Medical Records Department [address] [place] [address] History & Physical Exam 08/23/24 0701 MR#: [id number] Acct: [id number] Name: BRAULIO HARTLEY Rep #:[id number] : 1985 38 From: Phillip Friend DO PCP: Dr. Piedad Kimball MD Status:REG S DC Location: [place] [address] HPI - General General Date of Admission: 08/23/24 Date of Service: 08/23/24 Chief Complaint: abdominal pain , GERD, constipation HPI Narrative BRAULIO HARTLEY, is a 38 F who presents for evaluation of abdominal pain, cramping, nausea and change in bowel habits with worsening constipation. r CBC and CMP 05/03/2024 unremarkable including calcium - for several years she has had ongoing stomach issues - can go several days without a BM, abdominal pain and bloating adn then will have several days of diarrhea - typically rabbit turds or watery diarrhea - has abdominal cramping - cramping can be very intense - diarrhea can be so bad she fears having any accident - denies any weight loss - denies any bleeding - she has never had a colonoscopy - has tried increasing fiber - she had tried to pay close attention to food that trigger symptoms - water intake is good - close to a gallon a day - reducing red meat has helped with symptoms she has added fruit with breakfast - veggie intake is pretty standard - she tried Benefiber chews these did not help - HB in the evenings - reflux if she eats too late at night - she is prescribed Omeprazole but does not take often - Tums helps - denies any N/V PFSH Medical History Wears glasses Wears contact lenses Migraine headache History of IBS Gastric reflux Former smoker Home Medications ?Medication ?Instructions ?Recorded ?Last Taken ?Type omeprazole 20 mg capsule,delayed 20 mg PO QDAY GERD #9 0 caps 06/14/24 08/22/24 Rx release [id number] 100 gram-sod sulf 7.5 See Rx Instructions PO P ER PKG DIR 08/22/24 Unknown Rx gaey-PuMw-IKl-ascorbate-C oral #1 ea pwdr pack (MoviPrep) Allergy/AdvReac Type Severity Reaction Status Date / Time No Known Allergies Allergy Verified 08/23/24 05:49 Family History Grandmother IBS (irritable bowel syndrome) Rheumatoid arthritis Fibromyalgia Hypertension Mother Arthritis Fibromyalgia Rheumatoid arthritis Hypertension Father Hypertension Grandfather Hypertension Surgical History No history of previous surgery Hx of breast biopsy Social History Smoking Status: Never smoker alcohol intake: never substance use type: does not use frequency: 3-4 times per week ROS Constitutional Constitutional: Denies fatigue, fever(s), poor appetite, weight gain or weight loss Gastrointestinal Gastrointestinal: Denies belching, bloating, change in bowel habits, change in stool character, chewing difficulty, coffee ground emesis, constipation, cramping, diarrhea, dyspepsia, dysphagia, early satiety, excessive flatus, fecalincontinence, heartburn, hematemesis, hematochezia, hemorrhoids, loose stools, melena, nausea, odynophagia, rectal bleeding, tenesmus, vomiting or weight changes Vital Signs Vital Signs Vital Signs: 08/23/24 05:51 08/23/24 05:52 08/23/24 06:26 Temperature 98.0 F 98.0 F Temperature Source Temporal Pulse Rate 58 L 58 L Respiratory Rate 16 16 Respiratory Pattern Normal Blood Pressure 104/64 104/64 Blood Pressure Mean 77 Blood Pressure Source Monitor Blood Pressure Position Semi-Fowlers Blood Pressure Location Left Arm Pulse Ox 99 99 Oxygen Delivery Method Room Air Room Air Weight Weight: 124 lb 9.6 oz Body Mass Index (BMI) 22.0 Physical Exam Const alert, oriented x3, no apparent distress and healthy appearing General Appearance: cooperative GI normal to inspection, nondistended, normoactive bowel sounds, soft to palpation,non-tender and non-distended Percussion: normal to percussion Rectal Exam: deferred Results Lab / Micro Data Labs: Laboratory Results - last 24 hr 08/23/24 05:38: Urine Test Negative Assessment & Plan Assessment/Plan (1) Abdominal cramping: (2) Abdominal pain: QUALIFIERS: Abdominal location: generalized Qualified Code(s): R10.84 - Generalized abdominal pain (3) Constipation: QUALIFIERS: Constipation type: unspecified constipation type Qualified Code(s): K59.00 - Constipation, unspecified (4) GERD (gastroesophageal reflux disease): QUALIFIERS: Esophagitis presence: esophagitis presence not specified Qualified Code(s): K21.9 - Gastro-esophageal reflux disease without esophagitis (5) IBS (irritable bowel syndrome): PLAN: Assessment and Plan Assessment and Plan (1) GERD (gastroesophageal reflux disease): Status: Acute Qualifiers: Esophagitis presence: esophagitis presence not specified Qualified Code(s): K21.9 - Gastro-esophageal reflux disease without esophagitis (2) Constipation: Status: Acute Qualifiers: Constipation type: unspecified constipation type Qualified Code(s): K59.00 - Constipation, unspecified (3) Abdominal pain: Status: Acute Qualifiers: Abdominal location: generalized Qualified Code(s): R10.84 - Generalizedabdominal pain (4) Abdominal cramping: Status: Acute Plan 38y/o female presents for initial consultation with complaints of heartburn, constipation and diarrhea. Heartburn symptoms are intermittent and exacerbated with alcohol and late night eating. We have discussed GERD recommendations and Ihave encouraged her to complete an 8 week course of Omeprazole 20mg daily. She reports a long history of alternating constipation and diarrhea associated with abdominal pain and cramping. Stools are either hard small balls or urgent waterydiarrhea. She prefers not to take any medications if possible. I have recommended a high fiber diet with the addition of daily fiber supplement and probiotic. She will complete Sitz Marker testing and colonoscopy. CBC and CMP were unremarkable 05/03/2024, if she has not had a recent TSH, I recommend she have this completed. A total of 60 minutes was spent on this visit reviewing [facility] and/or [employer] for associated records; previous notes (CBC, CMP 05/03/2024), counseling the patient on (high fiber diet, GERD diet, benefits of fiber supplements and probiotics, ACG PPI recommendation), ordering tests (sitz marker, colonoscopy), adjusting meds (Omeprazole, FiberCon and Probiotic), importance of compliance with treatment and documenting the findings in the note. Patient Instructions: - Complete Sitz Marker study - FiberCon 2 tablets once daily with 8 ounces of water after a meal. May take upto 3 weeks for symptom improvement. - Start a probiotic (DistalMotion, Hamilton Thorne or Compellon) once daily. These are all multispecies probiotics, pick the cheapest one. - Omeprazole 20mg daily, take 30 minutes before breakfast daily for 8 weeks. If symptoms are persisting or return with discontinuing will schedule EGD. - Follow-up in the office post colonoscopy IBS includes symptoms such as abdominal pain, bloating, diarrhea, constipation or mixed bowel habits. Patients can also experience small intestinal bacterial overgrowth (SIBO), food sensitivities exacerbating symptoms. Making dietary changes with a low FODMAP diet, gluten free diet or antiinflammatory diet have shown to be beneficial as well as taking a daily probiotic. Physical activity and stress management are also important in managing your gut health; as this helps regulate autonomic function and improve gut motility. Studies show yoga, walking, meditation, relaxation techniques, mindfulness and deep breathing exercises are also beneficial for gut health. If you are not already taking a probiotic, I recommend a once daily multispeciesprobiotic such as Align, Culturelle or Boedo Colon Health. In addition to a probiotic, I recommend a daily fiber supplement such as FiberCon tablets. Takingtwo FiberCon tablets once daily helps with both constipation (by softening stools and promoting movement) and diarrhea (by absorbing excess fluid and firming stools). Fiber helps maintain regular bowel movements which create a more balanced gut environment and can help reduce gut irritation and bloating. Consistent fiber intake can support beneficial bacteria by promoting gut motility and reducing stagnation of waste. Incorporating a fiber and probiotic supplement paired with lifestyle changes such as hydration (aim for at least 64 ounces daily), movement and a balanced diet may take up to three weeks to show noticeable benefits. Consistency is jarquin in allowing the gut time to adapt. The gut-brain axis plays a significant role, and effective treatment requires a multifaceted approach that goes beyond medications alone. While pharmacological therapy can be beneficial, the greatest impact comes from a comprehensive, whole-body approach that includes dietary modifications, stress management, physical activity, and gut health optimization. Addressing these factors together helps improve overall well-being and symptom management. PPIs are the most effective medical treatment for GERD. Some medical studies have identified an association between the long-term use of PPIs and the development of numerous adverse conditions including intestinal infections, pneumonia, stomach cancer, osteoporosis-related bone fractures, chronic kidney disease, deficiencies of certain vitamins and minerals, heart attacks, strokes, dementia, and early . Those studies have flaws, are not considered definitive, and do not establish a coeer-dzw-migwxm relationship between PPIs and the adverse conditions. High- quality studies have found that PPIs do not significantly increase the risk of any of these conditions except intestinal infections. Nevertheless, we cannot exclude the possibility that PPIs might confer a small increase in the risk of developing these adverse conditions. For the treatment of GERD, gastroenterologists generally agree that the well-established benefits of PPIs far outweigh their theoretical risks. Coding Level of Care Code Attention [employer] Diagnoses Gastroesophageal reflux disease, unspecified whether esophagitis present K21.9 Esophagitis presence: esophagitis presence not specified Constipation, unspecified constipation type K59.00 Constipation type: unspecified constipation type Generalized abdominal pain R10.84 Abdominal location: generalized Abdominal cramping R10.9 08/23/24 0722 <Electronically signed by Phillip Shah DO> Cosigner Signature (if applicable): CC: Dr. Piedad Kimball MD; Phillip Shah DO~ Signed [facility] Work Phone: Reason for referral (narrative)No reason for referral information availableWTogus [facility] Work Phone: Summary Purpose Family History No Family History Records Found Relationship Condition Age at Onset Recorded Date/T fausto grandmother Irritable bowel syndrome Unknown Rheumatoid arthritis Unknown Fibromyalgia Unknown Hypertension Unknown mother Arthritis Unknown father Hypertension Unknown grandfather Hypertension Unknown Advance Directives No Advanced Directives Records Found Advance Directive Response Recorded Date/ Time Do you have a Healthcare Power of Regional Truck Driver? No August 18, 2024 11:49am Chief Complaint and Reason for Visit Chief Complaint PELVIC PAIN Chief Complaint Admit Date Ongoing GI Issues June 14, 2024 8:0 9am SitzMarker Day 3 June 19, 2024 4:5 4pm Reason for Visit Admit Date Abdominal cramping June 14, 2024 8:0 9am Abdominal pain June 14, 2024 8:0 9am Constipation June 14, 2024 8:0 9am GERD (gastroesophageal reflux disease) [facility] 2024 8:09am Reason for Visit Admit Date Abdominal cramping June 14, 2024 8:0 9am Abdominal pain June 14, 2024 8:0 9am Constipation June 14, 2024 8:0 9am GERD (gastroesophageal reflux disease) [facility] 2024 8:09am Abdominal cramping August 23, 2024 5:22a m Abdominal pain August 23, 2024 5:22a m Constipation August 23, 2024 5:22a m GERD (gastroesophageal reflux disease) [facility] 2024 5:22am IBS (irritable bowel syndrome) August 23, 2024 5:22am Chief Complaint Admit Date Ongoing GI Issues June 14, 2024 8:0 9am SitzMarker Day 3 June 19, 2024 4:5 4pm test result September 13, 2024 7:59 am Additional Source Comments INFORMATION SOURCE (unrecogn ized section and content) DATE CREATED AUTHOR 04/28/2021 [facility] DATE CREATED AUTHOR AUTHOR'S ORGANIZ ATION 05/07/2024 [facility] DATE CREATED AUTHOR AUTHOR'S ORGANIZ ATION 07/07/2024 [facility] DATE CREATED AUTHOR AUTHOR'S ORGANIZ ATION 09/16/2024 [facility] Goals (unrecognized section and content) Goals may be documented in a n alternate sectionGoals may be documented in an alternate sectionGoals may be documented in an alternate section Care Teams (unrecognized sec tion and content) Team Status: Active Member Role Status Dates Dr. Piedad Kimball MD Primary Care Provider Active Team Status: Inactive Member Role Status Dates Dr. Piedad Kimball MD Primary Care Provider Active Start: June 14, 2024 End: June 14, 2024 Dr. Piedad Kimball MD Referring Provider Active Start: June 14, 2024 End: June 14, 2024 SARA Ruano Attending Provider Active Start: June 14, 2024 End: June 14, 2024 Team Status: Inactive Member Role Status Dates Dr. Piedad Kimball MD Primary Care Provider Active Start: June 19, 2024 End: June 19, 2024 SARA Ruano Attending Provider Active Start: June 19, 2024 End: June 19, 2024 NATALIA Phelps Referring Provider Active Start: June 19, 2024 End: June 19, 2024 Team Status: Active Member Role Status Dates Dr. Piedad Kimball MD Primary Care Provider Active Start: June 21, 2024 SARA Ruano Attending Provider Active Start: June 21, 2024 SARA Ruano Referring Provider Active Start: June 21, 2024 Team Status: Inactive Member Role Status Dates Dr. Piedad Kimball MD Primary Care Provider Active Start: June 21, 2024 End: June 21, 2024 SARA Ruano Attending Provider Active Start: June 21, 2024 End: June 21, 2024 SARA Ruano Referring Provider Active Start: June 21, 2024 End: June 21, 2024 Electrical Helper Relationship Specialty Start Date End Date Piedad Kimball MD [address] [place] [address] PCP - General Family Medicine 07/05/24 Team Status: Inactive Member Role Status Dates Dr. Piedad Kimball MD Primary Care Provider Active Start: August 23, 2024 End: August 23, 2024 Dr. Piedad Kimball MD Referring Provider Active Start: August 23, 2024 End: August 23, 2024 Dr. Phillip Shah DO Attending Provider Active Start: August 23, 2024 End: August 23, 2024 Team Status: Active Member Role Status Dates Dr. Piedad Kimball MD Primary Care Provider Active Start: August 23, 2024 Dr. Piedad Kimball MD Referring Provider Active Start: August 23, 2024 Dr. Phillip Shah DO Attending Provider Active Start: August 23, 2024 Dr. Phillip Shah DO Other Provider Active St art: August 23, 2024 Team Status: Inactive Member Role Status Dates Dr. Piedad Kimball MD Primary Care Provider Active Start: September 13, 2024 End: September 13, 2024 Dr. Piedad Kimball MD Referring Provider Active Start: September 13, 2024 End: September 13, 2024 SARA Ruano Attending Provider Active Start: September 13, 2024 End: September 13, 2024 FOR RECORDS PERTAINING TO PATIENTS WHO ARE OR HAVE BEEN ENROLLED IN A CHEMICAL DEPENDENCY/SUBSTANCEABUSE PROGRAM, SOME INFORMATION MAY BE OMITTED. This clinical summary was aggregated from multiple sources. Caution should be exercised in using it in the provision of clinical care. This summary normalizes information from multiple sources, and as a consequence, information in this document may materially change the coding, format and clinical context of patient data. In addition, data may be omitted in some cases. CLINICAL DECISIONS SHOULD BE BASED ON THE PRIMARY CLINICAL RECORDS. [facility] [employer] [facility]. provides no warranty or guarantee of the accuracy or completeness of information in this document.
== END 2024-10-04 20:42 | disposition home or self-care (01) ==
LOC: ED 13:04 → SDC 13:39 → ACINP 13:40 → SDC 14:50 → MS3 14:50
PROVIDERS: Admitting Provider Surgery; Emergency Provider Emergency Medicine; PCP Family Medicine; Visit Provider Surgery
PROC: 0DTJ4ZZ Resection of Appendix, Percutaneous Endoscopic Approach (ICD-10-PCS; CPT 44970; principal; 2024-10-04 14:40)
DX: K35.80 Unspecified acute appendicitis (principal); K58.9 Irritable bowel syndrome, unspecified; D12.3 Benign neoplasm of transverse colon; K21.9 Gastro-esophageal reflux disease without esophagitis; Z79.899 Other long term (current) drug therapy; Z87.891 Personal history of nicotine dependence
CPT/HCPCS: 44970; 00840; 74177; 80053; 81001; 83690; 84703; 85025; 88304; 96365; 96375; 99284; Q9967; A4216; J2405

== ENCOUNTER → 2025-01-24 | Outpatient (CLI) | payer OTHER, SELFPAY ==
--- OUTSIDE RECORDS SUMMARY | 2025-01-24 18:20 | XMS RPT_ITS | CCD ---
Author Organization [facility] [employer] Care Team Providers Care Still Cleaner Tube Name Role Phone Jigar DOUGLAS, Dr. Germain Primary Care Provider Dr. Piedad Sun MD Referring Provider Hans AVILACRowena Attending Provider Charlotte Padilla Referring Provider Hans LOPEZ-CRowena Referring Provider Piedad Sun MD Primary Care Provider [phone] Phillip Shah DO Attending Provider Dr. Phillip Shah DO Other Provider Dr. Louie Song DO Emergency Provider Dr. Lien Tyson MD Attending Provider Dr. Louie Song DO Emergency Provider Dr. Lien Tyson MD Other Provider Jaymie Simpson PA-C Attending Provider Dr. Lien Tyson MD Admit Provider Dr. Lien Tyson MD Attending Provider Dr. Piedad Sun MD Primary Care Provider [phone] Rowena Glass Attending Provider Dr. Piedad Sun MD Referring Provider Jacqueline Osei Attending Provider Dr. Piedad Sun MD Primary Care Provider [phone] Rowena Glass Attending Provider Dr. Louie Song DO Referring Provider Dr. Lien Tyson MD Attending Provider [phone] Dr. Rowena Arias DO Attending Provider CIFUENTES, ALIDA Attending Unavailable SUN, PIEDAD Primary Care Unavailable CIFUENTES, ALIDA Referring Unavailable CIFUENTES, ALIDA Attending Unavailable SUN, PIEDAD Primary Care Unavailable CIFUENTES, ALIDA Referring Unavailable CIFUENTES, ALIDA Referring Unavailable CIFUENTES, ALIDA Attending Unavailable SUN, PIEDAD Primary Care Unavailable Sun, Piedad Primary Care Unavailable Hans, Rowena Attending Unavailable Sun, Piedad Referring Unavailable Sun, Piedad Primary Care Unavailable Robotham, Lien Admitting Unavailable Robotmariel, Lien Attending Unavailable BarkJacqueline becker Attending Unavailable Sun, Piedad Referring Unavailable Sun, Piedad Primary Care Unavailable RobotLien floyd Attending Unavailable Sun, Piedad Referring Unavailable Sun, Piedad Primary Care Unavailable Rowena Arias Attending Unavailabl e Sun, Piedad Referring Unavailable Sun, Piedad Primary Care Unavailable Hans, Rowena Attending Unavailable Sun, Piedad Primary Care Unavailable Sun, Piedad Referring Unavailable Sun, Piedad Primary Care Unavailable Louie Song Referring Unavailable Robotham, Lien Consulting Unavailable RobotLien floyd Attending Unavailable HansRowena Attending Unavailable HansRowena Referring Unavailable Sun, Piedad Primary Care Unavailable HansRowena lauren Attending Unavailable Sun, Piedad Primary Care Unavailable Charlotte Landin Referring Unavailable Sun, Piedad Primary Care Unavailable FriendPhillip Attending Unavailable Sun, Piedad Referring Unavailable Sun, Piedad Primary Care Unavailable Friend, Phillip Consulting Unavailable FriendPhillip Attending Unavailable Sun, Piedad Referring Unavailable Sun, Piedad Referring Unavailable Rowena Arias Attending Unavailabl e Sun, Piedad Primary Care Unavailable Medications Current Medications Medication Drug Class(es) Dates Sig (Normalized) Sig (Original) copper 313 mg drug implant (2 sources) Copper-containing Intrauterine Device Start: 10-18-2024 Copper (Paragard T 380a) 380 square mm intrauterine device Active 1 NMA INTRA-UTER ONCE October 18, 2024 12:00am as a single dose estradiol 0.1 mg/ml vaginal cream (4 sources) Estrogen Start: 11-24-2024 Estradiol 0.01 % (0.1 mg/gram) cream Active 0.5 g VAGINAL daily 42.5 5 November 24, 2024 10:00am use 0.5 grams twice a week vaginally and then also apply a small amount to the outer vaginal tissue every day. Start: 10-18-2024 End: 11-24-2024 Estradiol 0.01 % (0.1 mg/gra m) cream Discontinued 1 NMA VAGINAL daily October 18, 2024 12:00am November 24, 2024 10:02am for 14 days hyoscyamine sulfate 0.125 mg disintegrating oral tablet (6 sources) Start: 09-13-2024 Hyoscyamine Sulfate 0.125 mg tablet,disintegrating Active 0.125 mg PO 2 to 4 times per day as needed for abdominal cramping, diarrhea 60 September 13, 2024 12:00am omeprazole 20 mg delayed release oral capsule (18 sources) Proton Pump Inhibitor Start: 06-14-2024 End: 06-14-2024 take 1 capsule by mouth once daily Omeprazole 20 mg capsule,delayed release(DR/EC) Active 20 mg PO daily 90 June 14, 2024 9:05am GERD Relugolix-Estradiol -Norethindr (1 source) Start: 11-24-2024 Qhffrznjm-Fbkszrsyy-Jfgbs hindr (Myfembree) 40-1-0.5 mg tablet Active 1 {tbl} PO daily 30 November 24, 2024 12:00am Completed/Discontinued Medications Medication Drug Class(es) Dates Sig (Normalized) Sig (Original) ascorbic acid 4700 mg / polyethylene glycol 3350 243627 mg / potassium chloride 1015 mg / sodium ascorbate 5900 mg / sodium chloride 2690 mg / sodium sulfate 7500 mg powder for oral solution (7 sources) Osmotic Laxative, Vitamin C Start: 08-22-2024 End: 09-13-2024 take 1 dose by mouth once [id number] Okv-Qrsy-Aec-Asb-C (Moviprep) 100-7.5-2.691 gram powder in packet Discontinued 0 PO per package directions 1 August 22, 2024 12:00am September 13, 2024 8:29am as directed for split dose bowel prep ondansetron 4 mg oral tablet (9 sources) Serotonin-3 Receptor Antagonist Start: 06-14-2024 End: 08-18-2024 take 2 tablets by mouth every two hours as needed, then take 1 tablet by mouth every four hours as needed Ondansetron Hcl 4 mg tablet Discontinued 4 mg PO .COMPLEX 5 0 June 14, 2024 12:00am August 18, 2024 11:48am 4 mg orally; take two tablets PO two hours prior to start of bowel prep and one every 4 hours as needed for N/V oxyCODONE hydrochloride 5 mg oral capsule (4 sources) Opioid Agonist Start: 10-04-2024 End: 10-18-2024 take 1 capsule by mouth every six hours as needed for pain Oxycodone 5 mg capsule Discontinued 5 mg PO EVERY 6 HOURS as needed for pain 10 3 0 October 04, 2024 October 18, 2024 9:24am Postoperative pain Status post laparoscopic appendectomy Other acute postprocedural pain Acquired absence of other specified parts of digestive tract Sod Sulf-Pot Chloride-Mag Sulf (9 sources) Start: 06-14-2024 End: 08-18-2024 take 1.479 tablets by mouth once Sod Sulf-Pot Chloride-Mag Sulf (Sutab) 1.479-0.188- 0.225 gram tablet Discontinued 0 PO per package directions 24 0 June 14, 2024 12:00am August 18, 2024 11:48am take as directed for colonoscopy Start: 06-14-2024 End: 08-18-2024 take 1.479 tablets [...] 12:00am take as directed for colonoscopy Problems Active Problems Problem Classification Problem Date Documented Da te Episodic/Chronic Abdominal pain (20 sources) Finding of sensation of abdomen; Translations: [Unspecified abdominal pain] Onset: 5 06-14-2024 Episodic Appendicitis and other appendiceal conditions (10 sources) Acute appendicitis; Translations: [Unspecified acute appendicitis] Onset: 5 10-04-2024 Episodic Contraceptive and procreative management (4 sources) Intrauterine contraceptive device in situ; Translations: [Presence of (intrauterine) contraceptive device] 10-18-2024 Episodic Comment on above: Placed in 2020 per p atient Endometriosis (5 sources) Endometriosis (clinical); Translations: [Endometriosis, unspecified] 10-18-2024 Chronic Esophageal disorders (20 sources) Gastroesophageal reflux disease; Translations: [Gastro-esophageal reflux disease without esophagitis] Onset: 5 06-14-2024 Chronic Other gastrointestinal disorders (20 sources) Irritable bowel syndrome; Translations: [Irritable bowel syndrome without diarrhea] 06-14-2024 Chronic Other gastrointestinal disorders (1 source) Irritable bowel syndrome without diarrhea; Translations: [Irritable bowel syndrome, unspecified] Onset: 5 Chronic Other gastrointestinal disorders (20 sources) Constipation; Translations: [Constipation, unspecified] 06-14-2024 Episodic Residual codes; unclassified (6 sources) Acquired absence of other specified parts of digestive tract; Translations: [Status post laparoscopic appendectomy] 10-04-2024 Episodic Residual codes; unclassified (4 sources) Positive measurement finding; Translations: [Other nonspecific abnormal findings] 10-18-2024 Episodic Comment on above: in early ; negat jethro since Past or Other Problems Problem Classification Problem Date Documented Da te Episodic/Chronic Nonmalignant breast conditions (8 sources) Lump in upper outer quadrant of right breast; Translations: [Unspecified lump in the right breast, upper outer quadrant] Onset: 07-05-2024 07-05-2024 Episodic Other gastrointestinal disorders (2 sources) Constipation, unspecified; Translations: [Constipation, unspecified] Onset: 06-26-2024 Episodic Results Test Name Value Interpretation Reference Range Facility BI US BREAST LIMITED RIGHTon 01-10-2025 BI US BREAST LIMITED RIGHT This is a summary report. The complete report is available in the patient's medical record. If you cannot access the medical record, please contact the sending organization for a detailed fax or copy. [facility] 1985 [id number] Exam Date/Time: 01/10/2025 09:52 Procedure: BI US BREAST LIMITED RIGHT Ordering Provider: CIFUENTES LORALEE Reason For Exam: --------ADDENDUM #1 -------- ADDENDUM: This is an addendum to correct laterality within the report recommendation. There are no other changes to the previous report. ASSESSMENT: Category 3 Probably benign RECOMMENDATION: Breast ultrasound in 6 months Right Report Dictated on Electronically Signed By: Ellen Webster MD Electronically Signed Date/Time: 01/10/2025 2:55 PM EDT --------ORIGINAL REPORT -------- This exam was performed at [place] [address] PATIENT CANCER HISTORY: No Personal History of Cancer FAMILY CANCER HISTORY: No Family History of Cancer Prior study Comparisons: 07/05/2024 Findings: The patient presents for a right breast ultrasound for follow-up of a probably benign right breast mass. This is the first six-month follow-up exam. There is a stable 1.4 cm circumscribed vascular hypoechoic mass within the right breast at 9:00, 8 cm from the nipple. This is again most likely a fibroadenoma and is probably benign. Survey of the right axilla demonstrates normal lymph nodes. IMPRESSION: Stable probably benign right breast mass. A six-month follow-up right breast ultrasound is recommended. ASSESSMENT: Category 3 Probably benign RECOMMENDATION: Breast ultrasound in 6 months Left CANCER RISK ASSESSMENT: This risk assessment is based on patient provided information collected in a risk survey taken at the time of this examination. LIFETIME BREAST CANCER RISK: Vahid 8: 12.66% - If greater than or equal to [...] up. Report Dictated on Electronically Signed By: Ellen Webster MD Electronically Signed Date/Time: 01/10/2025 10:25 AM EDT Prob Benign Rt US 6m [facility] Name: [facility] 1985 [id number] Exam Date/Time: 01/10/2025 09:52 Procedure: BI US BREAST LIMITED RIGHT Ordering Provider: CIFUENTES LORALEE Reason For Exam: This exam was performed at [place] [address] PATIENT CANCER HISTORY: No Personal History of Cancer FAMILY CANCER HISTORY: No Family History of Cancer Prior study Comparisons: 07/05/2024 Findings: The patient presents for a right breast ultrasound for follow-up of a probably benign right breast mass. This is the first six-month follow-up exam. There is a stable 1.4 cm circumscribed vascular hypoechoic mass within the right breast at 9:00, 8 cm from the nipple. This is again most likely a fibroadenoma and is probably benign. Survey of the right axilla demonstrates normal lymph nodes. IMPRESSION: Stable probably benign right breast mass. A six-month follow-up right breast ultrasound is recommended. ASSESSMENT: Category 3 Probably benign RECOMMENDATION: Breast ultrasound in 6 months Left CANCER RISK ASSESSMENT: This risk assessment is based on patient provided information collected in a risk survey taken at the time of this examination. LIFETIME BREAST CANCER RISK: Vahid 8: 12.66% - If greater than or equal to [...] up. Report Dictated on Electronically Signed By: Ellen Webster MD Electronically Signed Date/Time: 01/10/2025 10:25 AM EDT CRASRVID[facility] Wax Pattern Assembler ID: [id number] CRAREQIDCRA Request ID: [id number] Normal [facility] US Breast - right limitedon 01-10-2025 Addendum by Ellen Webster MD on 01/10/2025 2:55 PM EDT Patient Name: [facility] 1985 [id number] Exam Date/Time: 01/10/2025 09:52 Procedure: BI US BREAST LIMITED RIGHT Ordering Provider: CIFUENTES LORALEE Reason For Exam: --------ADDENDUM #1 -------- ADDENDUM: This is an addendum to correct laterality within the report recommendation. There are no other changes to the previous report. ASSESSMENT: Category 3 Probably benign RECOMMENDATION: Breast ultrasound in 6 months Right Report Dictated on Electronically Signed By: Ellen Webster MD Electronically Signed Date/Time: 01/10/2025 2:55 PM EDT --------ORIGINAL REPORT -------- This exam was performed at [place] [address] PATIENT CANCER HISTORY: No Personal History of Cancer FAMILY CANCER HISTORY: No Family History of Cancer Prior study Comparisons: 07/05/2024 Findings: The patient presents for a right breast ultrasound for follow-up of a probably benign right breast mass. This is the first six-month follow-up exam. There is a stable 1.4 cm circumscribed vascular hypoechoic mass within the right breast at 9:00, 8 cm from the nipple. This is again most likely a fibroadenoma and is probably benign. Survey of the right axilla demonstrates normal lymph nodes. IMPRESSION: Stable probably benign right breast mass. A six-month follow-up right breast ultrasound is recommended. ASSESSMENT: Category 3 Probably benign RECOMMENDATION: Breast ultrasound in 6 months Left CANCER RISK ASSESSMENT: This risk assessment is based on patient provided information collected in a risk survey taken at the time of this examination. LIFETIME BREAST CANCER RISK: Tyrer-Cuzick 8: 12.66% - If greater than or equal to [...] up. Report Dictated on Electronically Signed By: Ellen Webster MD Electronically Signed Date/Time: 01/10/2025 10:25 AM EDT Prob Benign Rt US 6m [facility] Stable probably indira gn right breast mass. A six-month follow-up right breast ultrasound is recommended. ASSESSMENT: Category 3 Probably benign RECOMMENDATION: Breast ultrasound in 6 months Left CANCER RISK ASSESSMENT: This risk assessment is based on patient provided information collected in a risk survey taken at the time of this examination. LIFETIME BREAST CANCER RISK: Ayan-Ryanck 8: 12.66% - If greater than or equal to [...] up. Report Dictated on Electronically Signed By: Ellen Webster MD Electronically Signed Date/Time: 01/10/2025 10:25 AM EDT [facility] [place] [facility] Patient Name: [facility]AQUEL[facility] 1985 [id number] Exam Date/Time: 01/10/2025 09:52 Procedure: BI US BREAST LIMITED RIGHT Ordering Provider: CIFUENTES LORALEE Reason For Exam: This exam was performed at [place] [address] PATIENT CANCER HISTORY: No Personal History of Cancer FAMILY CANCER HISTORY: No Family History of Cancer Prior study Comparisons: 07/05/2024 Findings: The patient presents for a right breast ultrasound for follow-up of a probably benign right breast mass. This is the first six-month follow-up exam. There is a stable 1.4 cm circumscribed vascular hypoechoic mass within the right breast at 9:00, 8 cm from the nipple. This is again most likely a fibroadenoma and is probably benign. Survey of the right axilla demonstrates normal lymph nodes. [facility] [facility] Ellen Webster MD - 01/10/2025 Patient Name: YAQUELIN HARTLEY : 1985 Exam Date/Time: 01/10/2025 09:52 Procedure: BI US BREAST LIMITED RIGHT Ordering Provider: CIFUENTES LORALEE Reason For Exam: This exam was performed at [place] [address] PATIENT CANCER HISTORY: No Personal History of Cancer FAMILY CANCER HISTORY: No Family History of Cancer Prior study Comparisons: 07/05/2024 Findings: The patient presents for a right breast ultrasound for follow-up of a probably benign right breast mass. This is the first six-month follow-up exam. There is a stable 1.4 cm circumscribed vascular hypoechoic mass within the right breast at 9:00, 8 cm from the nipple. This is again most likely a fibroadenoma and is probably benign. Survey of the right axilla demonstrates normal lymph nodes. IMPRESSION: Stable probably benign right breast mass. A six-month follow-up right breast ultrasound is recommended. ASSESSMENT: Category 3 Probably benign RECOMMENDATION: Breast ultrasound in 6 months Left CANCER RISK ASSESSMENT: This risk assessment is based on patient provided information collected in a risk survey taken at the time of this examination. LIFETIME BREAST CANCER RISK: Vahid 8: 12.66% - If greater than or equal to [...] up. Report Dictated on Electronically Signed By: Ellen Webster MD Electronically Signed Date/Time: 01/10/2025 10:25 AM EDT [employer] [facility] Study observation (narrative) Jama Carver alth US Breast - right limitedOrd ered By: Ellen Webster on 01-10-2025 [employer] Work Phone: [facility] Office Visit Reporton 11-24-2024 [facility] Office Visit Report [facility] [address] [place] [address], [address] [place] [address] OFFICE VISIT Date of Service: 11/24/24 MR#: [id number] Acct: [id number] Name: YAQUEILN HARTLEY Rep #: [id number] : 1985 Provider: Dr. Rowena Blevins DO Age/Sex: 39/F Location: [facility] Status: Signed Intake Vital Signs 10/18/24 09:22 11/24/24 09:29 11/24/24 09:29 Height 5 ft 3 in 5 ft 3 in 5 ft 3 in Weight: 123 lb 6 oz 123 lb 3 oz BMI 21.8 21.8 BP 123/85 H 126/84 H Intake Visit Reasons: Endometriosis Concerns per *CB Upholstery Bundler Required: No Is patient in pain?: No Allergies No Known Allergies Allergy (Verified 11/24/24 09:29) Medications ???Medication ???Instructions ???Recorded ???Confirmed ???Type omeprazole 20 mg capsule,delayed 20 mg PO QDAY GERD #90 caps 11/24/24 Rx release hyoscyamine sulfate 0.125 mg 0.125 mg PO BID-QID PRN abdominal 09/13/24 11/24/24 Rx disintegrating tablet cramping, diarrhea #60 tabs copper 380 square mm intrauterine 1 device intrauterine ONCE 11/24/24 History device (ParaGard T 380A) estradiol 0.01% (0.1 mg/gram) 0.5 g vaginal QDAY #42.5 grams 11/24/24 Rx vaginal cream relugolix 40 mg-estradiol 1 1 tab PO QDAY #30 tabs 11/24/24 Rx mg-norethindrone acetate 0.5 mg tablet (Myfembree) Post menopausal: No Patient : No : No PFSH Medical History HPV test positive Vulvar vestibulitis Wears glasses Wears contact lenses Migraine headache History of IBS Gastric reflux Former smoker Surgical History History of colposcopy H/O colonoscopy with polypectomy S/P laparoscopic appendectomy Hx of breast biopsy Family History Grandmother IBS (irritable bowel syndrome) Rheumatoid arthritis Fibromyalgia Hypertension Mother Arthritis Fibromyalgia Rheumatoid arthritis Hypertension Father Hypertension Grandfather Hypertension Social History adopted: No household members: spouse number of children: 0 current occupational status: employed current occupation: [employer]- [employer] sexually active: Yes Smoking Status: Never smoker alcohol intake: never substance use type: does not use caffeine: Yes Type: coffee during the past year weight has: remained stable what type of physical activity do you participate in: running and weight training frequency: 3-4 times per week isaiah/rastafarian: Oriental Orthodox seatbelt use: always do you feel safe at home: Yes 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 She has experienced chronic pelvic pain for a long time, initially misattributed to yeast infections due to painful intercourse and urination. 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 The patient discontinued hormonal control while considering , which exacerbated her symptoms. She was eventually referred to a teradata solution architect and diagnosed with Irritable Bowel Syndrome (IBS) after several years of abdominal pain complaints. In May, she underwent a colonoscopy performed by Dr. Shah, and later, an appendectomy revealed endometriosis on the appendix By Dr. Tyson, who took pictures of the uterus, ovaries, and fallopian tubes. all of which were shown to me today and appeared clear of endometriosis. The patient reports dense breast tissue with a fibroadenoma, requiring biannual ultrasounds. She had a mammogram in April due to breast pain and tenderness, which confirmed the dense tissue. History 0 Elective abortions Hx Para Spontaneous abortions Hx # Term Pregnancies Ectopic pregnancies Hx # Pregnancies Multiple births # of living children ROS Const ROS Unobtainable: All systems reviewed are unremarkable except as noted in H Resp Resp: Reports system reviewed and no additional complaints, except as documented; Denies cough GI GI: Reports as per HPI Psych Psych: Reports system reviewed and no additional complaints, except as documented Exam Const General: cooperative, healthy appearing, comfortable and no acute distress Resp Effort Inspection: normal respiratory effort Skin General: no rashes or lesions noted Psych Appearance: grossly normal Speech and Movement: speech and movement normal Coding Level of Care Code Off vis,est,level 4 Diagnoses Endometriosis N80.9 Asse (more content not included)... Normal [facility] Surgery Visit Reporton 10-20 Surgery Visit Report [facility] [address] [place] [address] OFFICE VISIT Date of Service: 10/20/24 MR#: [id number] Acct: [id number] Name: YAQUELIN HARTLEY Rep #: [id number] : 1985 Provider: Dr. Lien floyd MD Age/Sex: 39/F Location: [facility] Status: Signed Intake Vital Signs 10/04/24 17:26 10/18/24 09:22 Height 5 ft 3 in 5 ft 3 in Intake Visit Reasons: LAP APPY 7-9 Chief Complaint: lap appy 7-9 Is patient in pain?: No Allergies No Known Allergies Allergy (Verified 10/20/24 09:17) Medications ???Medication ???Instructions ???Recorded ???Confirmed ???Type omeprazole 20 mg capsule,delayed 20 mg PO QDAY GERD #90 caps 10/20/24 Rx release hyoscyamine sulfate 0.125 mg 0.125 mg PO BID-QID PRN abdominal 09/13/24 10/20/24 Rx disintegrating tablet cramping, diarrhea #60 tabs copper 380 square mm intrauterine 1 device intrauterine ONCE 10/20/24 History device (ParaGard T 380A) estradiol 0.01% (0.1 mg/gram) 1 appful vaginal QDAY 10/18/24 History vaginal cream Subjective Details: 39-year-old female presents status post laparoscopic appendectomy due to acute appendicitis. Pathology also showed endometriosis which was a new diagnosis. Patient has previously been referred to [facility] and also saw them recently. Patient otherwise states incisions healing well denies any issues. Objective Details: Abdomen: Soft, nondistended, nontender, incisions healing well clean dry and intact. Coding Level of Care Code Global Post Op Diagnoses S/P laparoscopic appendectomy Z90.49 Endometriosis N80.9 [facility] Medical History HPV test positive Vulvar vestibulitis Wears glasses Wears contact lenses Migraine headache History of IBS Gastric reflux Former smoker Surgical History History of colposcopy H/O colonoscopy with polypectomy S/P laparoscopic appendectomy Hx of breast biopsy Family History Grandmother IBS (irritable bowel syndrome) Rheumatoid arthritis Fibromyalgia Hypertension Mother Arthritis Fibromyalgia Rheumatoid arthritis Hypertension Father Hypertension Grandfather Hypertension Social History (Updated 10/18/24 @ 09:37 by Esme Rankin) adopted: No household members: spouse number of children: 0 current occupational status: employed current occupation: [employer]- [employer] sexually active: Yes Smoking Status: Never smoker alcohol intake: never substance use type: does not use caffeine: Yes Type: coffee during the past year weight has: remained stable what type of physical activity do you participate in: running and weight training frequency: 3-4 times per week isaiah/rastafarian: Oriental Orthodox seatbelt use: always do you feel safe at home: Yes 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 Patient is following up with HUMAN RESOURCES RECORDS CLERK due to the endometriosis seen on pathology. Follow-up as needed. Patient is agreeable plan. Lien Tyson M.D. Pager: [phone] [facility] [address] [place] [address], [facility], [address] [place] [id number] Office: [phone] 10/21/24 1056 Date Lien Nascimento Signature: Date (if applicable) CC: Dr. 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 Is patient in pain?: No Allergies No Known Allergies Allergy (Verified 10/18/24 09:24) Medications ???Medication ???Instructions ???Recorded ???Confirmed ???Type omeprazole 20 mg capsule,delayed 20 mg PO QDAY GERD #90 caps 10/18/24 Rx release hyoscyamine sulfate 0.125 mg 0.125 mg PO BID-QID PRN abdominal 09/13/24 10/18/24 Rx disintegrating tablet cramping, diarrhea #60 tabs copper 380 square mm intrauterine 1 device intrauterine ONCE 10/18/24 History device (ParaGard T 380A) estradiol 0.01% (0.1 mg/gram) 1 appful vaginal QDAY 10/18/24 History vaginal cream Is last menstrual period known: Yes Last Menstrual Period: 10/04/24 Post menopausal: No Patient : No : No Control Method: paragard- 2021 [facility] Medical History HPV test positive Vulvar vestibulitis Wears glasses Wears contact lenses Migraine headache History of IBS Gastric reflux Former smoker Surgical History History of colposcopy H/O colonoscopy with polypectomy S/P laparoscopic appendectomy Hx of breast biopsy Family History Grandmother IBS (irritable bowel syndrome) Rheumatoid arthritis Fibromyalgia Hypertension Mother Arthritis Fibromyalgia Rheumatoid arthritis Hypertension Father Hypertension Grandfather Hypertension Social History (Updated 10/18/24 @ 09:37 by Esme Rankin) adopted: No household members: spouse number of children: 0 current occupational status: employed current occupation: [employer] sexually active: Yes Smoking Status: Never smoker alcohol intake: never substance use type: does not use caffeine: Yes Type: coffee during the past year weight has: remained stable what type of physical activity do you participate in: running and weight training frequency: 3-4 times per week isaiah/rastafarian: Oriental Orthodox seatbelt use: always do you feel safe at home: Yes 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 This was diagnosed via pathology after having acute appendectomy secondary to appendicitis 2 weeks ago. She was referred to us from General Surgery. She reports she has for a long time felt symptoms of endometriosis however has had multiple doctors tell her this was not the case and instead had constipation. Has had ultrasounds in the past that were normal however never had any laparoscopic procedures to rule out. She has been on control of some form since age 18. Previously nuva ring however currently has Paragaurd placed in 2020. Feels this regulates her periods however still has frequent pelvic pain, abdominal pain, intense cramping/pain/heavy flow with periods. Has pain with bowel movements and pain with intercourse. Consequently was diagnosed with vulvar vestibulitis and uses estradiol cream and "another cream" to help with this. Because of this diagnosis it was recommended she not use hormonal control and has the Copper IUD. Of note-Last PAP 2-3 years ago--completed at her PCP Female Reproductive History Last Menstrual Period: 10/04/24 Cycle Length: 21-35 Bleeding Duration: 5 Questions: metorrhagia: Yes, sexually active: Yes, dyspareunia: Yes and PCB: No History 0 Elective abortions Hx Para Spontaneous abortions Hx # Term Pregnancies Ectopic pregnancies Hx # Pregnancies Multiple births # of living children ROS Const Constitutional: Denies chills, fatigue, fever(s), headache(s) or weight loss Eyes Eyes: Denies change in vision Cardio Card: Denies chest pain, chest pain at rest or palpitations Resp Resp: Denies dyspnea or dyspnea on exertion GI GI: Reports system reviewed and no additional complaints, except as documented and as per HPI : Reports as per HPI and pelvic pain; Denies difficulty voiding, dysuria, hematuria, prolapse symptoms, urinary incontinence, vaginal discharge, vaginal dryness, vaginal odor or vaginal pruritus Exam Const General: cooperative, healthy appearing, comfortable, no acute distress, well groom (more content not included)... Normal [facility] Basic Metabolic Profile (BMP )on 10-05-2024 BUN Normal 4-19 [facility] Comment on above: Result Comment: Canc elled via OM: Order cancelled - Patient discharged Performed By: #### L 100.0100, L500.2500 ####[facility] [address] [facility] [address] BUN/CRE Normal 10-20 [facility] Comment on above: Result Comment: Canc elled via OM: Order cancelled - Patient discharged Performed By: #### L 100.0100, L500.2500 ####[facility] [address] [place], [address] Calcium Normal 7.6-11.0 [facility] Comment on above: Result Comment: Canc elled via OM: Order cancelled - Patient discharged Performed By: #### L 100.0100, L500.2500 ####[facility] [address] [place], [address] CL Normal 98-108 [facility] Comment on above: Result Comment: Canc elled via OM: Order cancelled - Patient discharged Performed By: #### L 100.0100, L500.2500 ####[facility] [address] [place], [address] CO2 Normal 21.0-32.0 [facility] Comment on above: Result Comment: Canc elled via OM: Order cancelled - Patient discharged Performed By: #### L 100.0100, L500.2500 ####[facility] [address] [place], [address] CREAT,SERUM Normal 0.70-1.20 [facility] Comment on above: Result Comment: Canc elled via OM: Order cancelled - Patient discharged Performed By: #### L 100.0100, L500.2500 ####[facility] [address] [place], [address] eGFR Normal >60 [facility] Comment on above: Result Comment: Canc elled via OM: Order cancelled - Patient discharged Performed By: #### L 100.0100, L500.2500 ####[facility] [address] [place], [address] GAP Normal 5-15 [facility] Comment on above: Result Comment: Canc elled via OM: Order cancelled - Patient discharged Performed By: #### L 100.0100, L500.2500 ####[facility] [address] [place], [address] GLU Normal 70-99 [facility] Comment on above: Result Comment: Canc elled via OM: Order cancelled - Patient discharged Performed By: #### L 100.0100, L500.2500 ####[facility] [address] [place], [address] Potassium Normal 3.3-5.1 [facility] Comment on above: Result Comment: Canc elled via OM: Order cancelled - Patient discharged Performed By: #### L 100.0100, L500.2500 ####[facility] [address] [place], [address] Basic Metabolic Profile (BMP) Normal 133-145 [facility] Comment on above: Result Comment: Canc elled via OM: Order cancelled - Patient discharged Performed By: #### L 100.0100, L500.2500 ####[facility] [address] [place], [address] CBC W/Diff, Automatedon 07- 0-2024 Absolute Neut Normal 2.0-7.7 [facility] Comment on above: Result Comment: Canc elled via OM: Order cancelled - Patient discharged Performed By: #### L 100.0100, L500.2500 ####[facility] [address] [place], [address] HCT Normal 37-47 [facility] Comment on above: Result Comment: Canc elled via OM: Order cancelled - Patient discharged Performed By: #### L 100.0100, L500.2500 ####[facility] [address] [place], [address] HGB Normal 12.0-15.0 [facility] Comment on above: Result Comment: Canc elled via OM: Order cancelled - Patient discharged Performed By: #### L 100.0100, L500.2500 ####[facility] [address] [place], [address] MCH Normal 27.0-32.0 [facility] Comment on above: Result Comment: Canc elled via OM: Order cancelled - Patient discharged Performed By: #### L 100.0100, L500.2500 ####[facility] [address] [place], [address] MCHC Normal 32-36 [facility] Comment on above: Result Comment: Canc elled via OM: Order cancelled - Patient discharged Performed By: #### L 100.0100, L500.2500 ####[facility] [address] [place], [address] MCV Normal 81-99 [facility] Comment on above: Result Comment: Canc elled via OM: Order cancelled - Patient discharged Performed By: #### L 100.0100, L500.2500 ####[facility] [address] [place], [address] NEUT% Normal 47-70 [facility] Comment on above: Result Comment: Canc elled via OM: Order cancelled - Patient discharged Performed By: #### L 100.0100, L500.2500 ####[facility] [address] [place], [address] PLT Normal 150-450 [facility] Comment on above: Result Comment: Canc elled via OM: Order cancelled - Patient discharged Performed By: #### L 100.0100, L500.2500 ####[facility] [address] [place], [address] RBC Normal 4.2-5.4 [facility] Comment on above: Result Comment: Canc elled via OM: Order cancelled - Patient discharged Performed By: #### L 100.0100, L500.2500 ####[facility] [address] [place], [address] RDW CV Normal 11.6-14.6 [facility] Comment on above: Result Comment: Canc elled via OM: Order cancelled - Patient discharged Performed By: #### L 100.0100, L500.2500 ####[facility] [address] [place], [address] RDW SD Normal 35.1-43.9 [facility] Comment on above: Result Comment: Canc elled via OM: Order cancelled - Patient discharged Performed By: #### L 100.0100, L500.2500 ####[facility] [address] [place], [address] WBC Normal 4.4-11.0 [facility] Comment on above: Result Comment: Canc elled via OM: Order cancelled - Patient discharged Performed By: #### L 100.0100, L500.2500 ####[facility] [address] [place], [address] Abdomen/Pelvis W IV Cont ONL Yon 10-04-2024 Abdomen/Pelvis W IV Cont ONLY [facility] Imaging Services [address] [place], [place] [address] Abdomen/Pelvis W IV Cont ONLY MR#: [id number] Acct: [id number] Name: YAQUELIN HARTLEY Rep #: [id number] : 1985 F 39 From: Naveen Li MD PCP: Dr. Piedad Sun MD Status: REG ER Study: Abdomen/Pelvis W IV Cont ONLY Date of Exam: Exam# [id number] Ordering Dr: Louie Song DO ADDENDUM by Dr. Naveen Li MD on 10/04/24 at 1257 The appendix measures up to 11 mm in diameter with subtle fat stranding. This could be evolving or resolving acute appendicitis. Red Alert: Dilatation of the appendix measuring up to 11 millimeter in diameter with subtle surrounding fat stranding. Early acute appendicitis can not be excluded. The critical information above was relayed directly by me by telephone to Louie Song on 10/04/2024 at 12:54 pm with readback verification. Reading Location: [facility]S AT [facility] 10/04/24 1257 Date cc: Dr. Louie Song DO; Dr. Piedad Sun MD * Signed EXAM: CT Abdomen and Pelvis With Intravenous Contrast CLINICAL INDICATION: PAIN TECHNIQUE: Axial computed tomography images of the abdomen and pelvis with intravenous contrast. This CT exam was performed using one or more of the following dose reduction techniques: automated exposure control, adjustment of the mA and/or kV according to patient size, and/or use of iterative reconstruction technique. COMPARISON: No relevant prior studies available. FINDINGS: LUNG BASES: Unremarkable. No mass. No consolidation. ABDOMEN: LIVER: Hepatomegaly with fatty infiltration. GALLBLADDER AND BILE DUCTS: Unremarkable. No calcified stones. No ductal dilation. PANCREAS: Unremarkable. No mass. No ductal dilation. SPLEEN: Unremarkable. No splenomegaly. ADRENALS: Unremarkable. No mass. KIDNEYS AND URETERS: Unremarkable. No stones within either kidney. No hydronephrosis. STOMACH AND BOWEL: Fecal retention in the colon consistent with constipation. No obstruction. No mucosal thickening. PELVIS: APPENDIX: The appendix measures up to 8 mm in diameter with subtle fat stranding. This could be evolving or resolving acute appendicitis. No pneumoperitoneum or abscess. BLADDER: Unremarkable. No mass. REPRODUCTIVE: Unremarkable as visualized. ABDOMEN and PELVIS: INTRAPERITONEAL SPACE: See above. BONES/JOINTS: No acute fracture. No dislocation. SOFT TISSUES: Umbilical hernia containing fat. VASCULATURE: Unremarkable. No abdominal aortic aneurysm. LYMPH NODES: Unremarkable. No enlarged lymph nodes. CT/Abdomen/Pelvis W IV Cont ONLY IMPRESSION: 1. The appendix measures up to 8 mm in diameter with subtle fat stranding. This could be evolving or resolving acute appendicitis. No pneumoperitoneum or abscess. 2. Hepatomegaly with fatty infiltration. 3. No obstructive uropathy. 4. Umbilical hernia containing fat. 5. Fecal retention in the colon consistent with constipation. Reading Location: [facility]CLUDE [facility] BEDS AT [facility] CC: Dr. Louie Song DO; Dr. 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 Normal [facility] Absolute lymphocyte countOrd ered By: Louie Song on 10-04-2024 Lymphocytes Auto (Unsp spec) [#/Vol] 0.81 10*3/uL Low 0.83-4.51 [facility] Absolute neutrophil countOrd ered By: Louie Song on 10-04-2024 Neutrophils (Bld) [#/Vol] 13.6 10*3/uL High 2.0-7.7 [facility] Anion gap in Serum or Plasma Ordered By: Louie Song on 10-04-2024 Anion gap [Moles/Vol] 15 mmol/L 5-15 [facility] Automated lymphocyte count a s percentage of total leukocytesOrdered By: Louie Song on 10-04-2024 Lymphocytes/100 WBC Auto (Unsp spec) 5.2 % Low 19-41 [facility] BUN/creatinine ratioOrdered By: Louie Song on 10-04-2024 Urea nitrogen/Creatinine [Mass ratio] 14.7 mg/mg 10-20 [facility] Basophil percentageOrdered B y: Louie Song on 10-04-2024 Basophils/100 WBC (Bld) 0.3 % 0-1 [facility] Bilirubin Test strip Ql (U)O rdered By: Louie Juniornigel on 10-04-2024 Bilirubin Ql (U) Negative Negative [facility] Bilirubin, totalOrdered By: Louie Juniornigel on 10-04-2024 Bilirubin [Mass/Vol] 0.64 mg/dL 0.00-1.30 [facility] CBC W/Diff, Automatedon 07-0 Absolute Lymph 0.81 X10 3/uL Low 0.83-4.51 [facility] Comment on above: Performed By: #### L 700.6800, L500.4050, L100.0100, L501.2450 #### [facility] [address] [place], [address] Absolute Neut 13.6 X10 3/uL High 2.0-7.7 [facility] Comment on above: Performed By: #### L 700.6800, L500.4050, L100.0100, L501.2450 #### [facility] [address] [place], [address] Basophils/100 WBC (Bld) 0.3 % Normal 0-1 [facility] Comment on above: Performed By: #### L 700.6800, L500.4050, L100.0100, L501.2450 #### [facility] [address] [place], [address] Eosinophils/100 WBC (Bld) 0.1 % Normal 0-5 [facility] Comment on above: Performed By: #### L 700.6800, L500.4050, L100.0100, L501.2450 #### [facility] [address] [place], [address] Erythrocyte distribution width (RBC) [Ratio] 11.9 % Normal 11.6-14.6 [facility] Comment on above: Performed By: #### L 700.6800, L500.4050, L100.0100, L501.2450 #### [facility] [address] [place], [address] Hematocrit (Bld) [Volume fraction] 39.7 % Normal 37-47 [facility] Comment on above: Performed By: #### L 700.6800, L500.4050, L100.0100, L501.2450 #### [facility] [address] [place], [address] Hemoglobin (Bld) [Mass/Vol] 13.4 g/dL Normal 12.0-15.0 [facility] Comment on above: Performed By: #### L 700.6800, L500.4050, L100.0100, L501.2450 #### [facility] [address] [place], [address] IG% 0.700 Normal 0.0-0.9 [facility] Comment on above: Result Comment: IG% - Immature Granulocytes (promyelocytes, myelocytes and metamyelocytes) > 1% indicates that a LEFT SHIFT is Present. Performed By: #### L 700.6800, L500.4050, L100.0100, L501.2450 #### [facility] [address] [place], [address] Lymphocytes/100 WBC (Bld) 5.2 % Low 19-41 [facility] Comment on above: Performed By: #### L 700.6800, L500.4050, L100.0100, L501.2450 #### [facility] [address] [place], [address] MCH (RBC) [Entitic mass] 28.3 pg Normal 27.0-32.0 [facility] Comment on above: Performed By: #### L 700.6800, L500.4050, L100.0100, L501.2450 #### [facility] [address] [place], [address] MCHC (RBC) [Mass/Vol] 33.8 g/dL Normal 32-36 [facility] Comment on above: Performed By: #### L 700.6800, L500.4050, L100.0100, L501.2450 #### [facility] [address] [place], [address] MCV (RBC) [Entitic vol] 83.9 fL Normal 81-99 [facility] Comment on above: Performed By: #### L 700.6800, L500.4050, L100.0100, L501.2450 #### [facility] [address] [place], [address] Monocytes/100 WBC (Bld) 5.5 % Normal 0-10 [facility] Comment on above: Performed By: #### L 700.6800, L500.4050, L100.0100, L501.2450 #### [facility] [address] [place], [address] Neutrophils/100 WBC (Bld) 88.2 % High 47-70 [facility] Comment on above: Performed By: #### L 700.6800, L500.4050, L100.0100, L501.2450 #### [facility] [address] [place], [address] Nucleated RBC (Bld) [#/Vol] 0 10*3/uL Normal 0-5 [facility] Comment on above: Performed By: #### L 700.6800, L500.4050, L100.0100, L501.2450 #### [facility] [address] [place], [address] Platelet mean volume (Bld) [Entitic vol] 10.3 fL Normal 6.2-12.0 [facility] Comment on above: Performed By: #### L 700.6800, L500.4050, L100.0100, L501.2450 #### [facility] [address] [place], [address] Platelets (Bld) [#/Vol] 264 10*3/uL Normal 150-450 [facility] Comment on above: Performed By: #### L 700.6800, L500.4050, L100.0100, L501.2450 #### [facility] [address] [place], [address] RBC (Bld) [#/Vol] 4.73 10*6/uL Normal 4.2-5.4 [facility] Comment on above: Performed By: #### L 700.6800, L500.4050, L100.0100, L501.2450 #### [facility] [address] [place], [address] RDW SD 36.1 fl Normal 35.1-43.9 [facility] Comment on above: Performed By: #### L 700.6800, L500.4050, L100.0100, L501.2450 #### [facility] [address] [place], [address] WBC (Bld) [#/Vol] 15.5 10*3/uL High 4.4-11.0 [facility] Comment on above: Performed By: #### L 700.6800, L500.4050, L100.0100, L501.2450 #### [facility] [address] [place], [address] Carbon dioxide, total [Moles /volume] in Central venous bloodOrdered By: Louie Song on 10-04-2024 CO2 [Moles/Vol] 20.8 mmol/L Low 21.0-32.0 [facility] Chloride assayOrdered By: Kevyn Song on 10-04-2024 Chloride [Moles/Vol] 102 mmol/L 98-108 [facility] Comprehensive Metabolic Prof ilon 10-04-2024 Albumin [Mass/Vol] 4.7 g/dL Normal 3.5-5.0 [facility] Comment on above: Performed By: #### L 700.6800, L500.4050, L100.0100, L501.2450 ####[facility] [address] [place], [address] Albumin/Globulin [Mass ratio] 1.5 {ratio} Normal 0.9-2.4 [facility] Comment on above: Performed By: #### L 700.6800, L500.4050, L100.0100, L501.2450 ####[facility] [address] [place], [address] ALK PHOS 43 U/L Normal 35-104 [facility] Comment on above: Performed By: #### L 700.6800, L500.4050, L100.0100, L501.2450 ####[facility] [address] [place], [address] ALT [Catalytic activity/Vol] 12 U/L Normal <=34 [facility] Comment on above: Performed By: #### L 700.6800, L500.4050, L100.0100, L501.2450 ####[facility] [address] [place], [address] AST [Catalytic activity/Vol] 19 U/L Normal <=31 [facility] Comment on above: Performed By: #### L 700.6800, L500.4050, L100.0100, L501.2450 ####[facility] [address] [place], [address] Bilirubin [Mass/Vol] 0.64 mg/dL Normal 0.00-1.30 [facility] Comment on above: Performed By: #### L 700.6800, L500.4050, L100.0100, L501.2450 ####[facility] [address] [place], [address] BUN/CRE 14.7 RATIO Normal 10-20 [facility] Comment on above: Performed By: #### L 700.6800, L500.4050, L100.0100, L501.2450 ####[facility] [address] [place], [address] Calcium [Mass/Vol] 9.2 mg/dL Normal 7.6-11.0 [facility] Comment on above: Performed By: #### L 700.6800, L500.4050, L100.0100, L501.2450 ####[facility] [address] [place], [address] Chloride [Moles/Vol] 102 mmol/L Normal 98-108 [facility] Comment on above: Performed By: #### L 700.6800, L500.4050, L100.0100, L501.2450 ####[facility] [address] [place], [address] CO2 [Moles/Vol] 20.8 mmol/L Low 21.0-32.0 [facility] Comment on above: Performed By: #### L 700.6800, L500.4050, L100.0100, L501.2450 ####[facility] [address] [place], [address] Creatinine [Mass/Vol] 0.74 mg/dL Normal 0.70-1.20 [facility] Comment on above: Performed By: #### L 700.6800, L500.4050, L100.0100, L501.2450 ####[facility] [address] [place], [address] ECRCL 86.10 ml/min Normal 50-250 [facility] Comment on above: Performed By: #### L 700.6800, L500.4050, L100.0100, L501.2450 ####[facility] [address] [place], [address] GAP 15 Normal 5-15 [facility] Comment on above: Performed By: #### L 700.6800, L500.4050, L100.0100, L501.2450 ####[facility] [address] [place], [address] GFR/1.73 sq M.predicted among non-blacks MDRD (S/P/Bld) [Vol rate/Area] 106 mL/min/{1.73_m2} Normal >60 [facility] Comment on above: Result Comment: mL/m in/1.73m2 CKD-EPI Creatinine Equation (2020) Performed By: #### L 700.6800, L500.4050, L100.0100, L501.2450 ####[facility] [address] [place], [address] Globulin (S) [Mass/Vol] 3.1 g/dL Normal 2.2-4.2 [facility] Comment on above: Performed By: #### L 700.6800, L500.4050, L100.0100, L501.2450 ####[facility] [address] [place], [address] Glucose [Mass/Vol] 99 mg/dL Normal 70-99 [facility] Comment on above: Performed By: #### L 700.6800, L500.4050, L100.0100, L501.2450 ####[facility] [address] [place], [address] Potassium [Moles/Vol] 3.6 mmol/L Normal 3.3-5.1 [facility] Comment on above: Performed By: #### L 700.6800, L500.4050, L100.0100, L501.2450 ####[facility] [address] [place], [address] Sodium [Moles/Vol] 138 mmol/L Normal 133-145 [facility] Comment on above: Performed By: #### L 700.6800, L500.4050, L100.0100, L501.2450 ####[facility] [address] [place], [address] T PROT 7.7 g/dL Normal 5.9-8.4 [facility] Comment on above: Performed By: #### L 700.6800, L500.4050, L100.0100, L501.2450 ####[facility] [address] [place], [address] Urea nitrogen [Mass/Vol] 11 mg/dL Normal 4-19 [facility] Comment on above: Performed By: #### L 700.6800, L500.4050, L100.0100, L501.2450 ####[facility] [address] [place], [address] Discharge Instructionon 07-0 Discharge Instruction [facility] Medical Records Department [address] [place] [address] Instructions for Home/Discharge Instructions 10/04/24 1626 MR#: [id number] Acct: [id number] Name: YAQUELIN HARTLEY Rep #: [id number] : 1985 39 From: Lien Tyson MD PCP: Dr. Piedad Sun MD Status:ADM MAITE Discharge Instructions Diet Discharge Diet: Light diet - advance as tolerated Activity Discharge Activity: May Not Drive (while taking narcotic pain medications.) May shower in (days): 1 Lifting Restrictions: no lifting >20 lbs x 2 wks, no strenuous exercise for 4 wks Dressing / Incision Call your doctor if your incision/area has: Continuous Slow Oozing, Sudden Increased Bleeding, Increased Pain/ Swelling, Increased Redness, Foul Smelling Discharge and Swelling at the incision site Call your doctor if you observe: Fever of 101 or Higher Remove Dressing in: 2 days Cleanse incision/area with: Soap Water Additional Dressing/Incision Instructions:: Steri-Strips will fall off in 7 to 10 days, if they do not fall off okay to remove after 10 days. Follow Up Care Please Follow Up With: Lien Tyson MD When: Call the office for a follow-up appointment 2 weeks; after 5 PM and on the weekends call [phone] with any concerns. Test Results: Test results from this visit will be discussed in further detail at your follow-up appointment, if applicable. Discharge Plan Admission Admit Date/Time: 10/04/24 14:14 Attending Provider: Lien Tyson Primary Care Provider: Piedad Sun Discharge Orders/Prescriptions Prescriptions: New oxycodone 5 mg capsule 5 mg PO Q6H PRN (Reason: pain) 3 Days Qty: 10 0RF Continued omeprazole 20 mg capsule,delayed release(DR/EC) 20 mg PO QDAY Qty: 90 1RF hyoscyamine sulfate 0.125 mg tablet,disintegrating 0.125 mg PO BID-QID PRN (Reason: abdominal cramping, diarrhea) Qty: 60 1RF Referrals / Follow Up: Piedad Sun MD [Primary Care Provider] - Disposition Disposition (needs filled in before D/C Order can be placed): Home, Self Care 10/04/24 6139 Lien Tyson MD CC: Dr. Piedad Sun MD Signed Normal [facility] Emergency Department Summary on 10-04-2024 Emergency Department Summary [facility] Medical Records Department [address] [place] [address] Emergency Department Summary 10/04/24 MR#: [id number] Acct: [id number] Name: YAQUELIN HARTLEY Rep #: [id number] : 1985 39 From: Louie Song DO PCP: Dr. Piedad Sun MD Status:ADM MAITE Location: MS3 [id number] HPI HPI - GI History of Present Illness Chief Complaint: Abd Pain Informant: patient Abdominal Pain/Flank Pain Onset: Today Context: Sudden Onset Timing: Continuous Quality: Aching and Sharp Location: LLQ and - (Left periumbilical area) Worsened by: Movement (Sitting upright and ambulation) Relieved by: Remaining Still Nausea/Vomiting/Emesis GI Symptom: Positive for Nausea and Vomiting Diarrhea/Melena/Hemato chezia GI Symptom: Positive for Diarrhea; Negative for Melena or Hematochezia Associated Symptoms Associated Symptoms: Negative for Dysuria, Frequency or Hematuria LMP: Current Narrative Narrative: Patient presents with abdominal pain that began today. Patient states it woke her up from sleep early this morning. Patient states that it has been constant. Patient describes it as aching but sharp at times. Patient states it is over the left periumbilical area and left lower quadrant. Patient states it is worse with certain movements. Patient states it is worse with ambulation and with sitting upright. Patient states it is better when she is able to remain still and lay flat. Patient admits to some nausea and vomiting. Patient admits to some diarrhea. Patient denies any hematemesis or coffee-ground emesis. Patient denies any melena or hematochezia. Patient is currently on her menstrual period. Patient denies any urinary complaints. PFSH [facility] Medical History Wears glasses Wears contact lenses Migraine headache History of IBS Gastric reflux Former smoker Home Medications ???Medication ???Instructions ???Recorded ???Last Taken ???Type omeprazole 20 mg capsule,delayed 20 mg PO QDAY GERD #90 caps 08/22/24 Rx release hyoscyamine sulfate 0.125 mg 0.125 mg PO BID-QID PRN abdominal 09/13/24 Unknown Rx disintegrating tablet cramping, diarrhea #60 tabs Allergy/AdvReac Type Severity Reaction Status Date / [...] use frequency: 3-4 times per week ROS ROS ED Constitutional Constitutional ED: Reports chills and subjective; Denies fever(s) Eyes Eyes: Denies blurry vision or change in vision ENT ENT ED: Denies rhinorrhea or sore throat Cardiovascular Cardiovascular: Denies chest pain or palpitations Respiratory/Chest Respiratory/Chest: Denies cough or dyspnea Gastrointestinal Gastrointestinal: Reports abdominal pain, diarrhea, nausea and vomiting; Denies melena Genitourinary Genitourinary ED: Denies dysuria or hematuria Musculoskeletal Musculoskeletal: Reports back pain; Denies neck pain Integumentary Denies abscess or rash Neurologic Neurologic: Denies headache(s) or weakness Allergic/Immunologic Allergic/Immunologic ED: Denies mouth swelling or urticaria EXAM Physical Exam Const Vital Signs: 10/04/24 10:11 10/04/24 11:11 10/04/24 12:00 Temperature 98.6 F Temperature Source Oral Pulse Rate 71 70 85 Respiratory Rate 18 14 14 Blood Pressure 115/75 115/68 124/73 H Blood Pressure Mean 88 83 90 Pulse Ox 100 100 100 Oxygen Delivery Method Room Air Room Air Room Air 10/04/24 13:00 10/04/24 13:55 Temperature 98.6 F Temperature Source Pulse Rate 70 70 Respiratory Rate 14 14 Blood Pressure 123/72 H 123/72 H Blood Pressure Mean 89 89 Pulse Ox 99 99 Oxygen Delivery Method Room Air Positive well nourished and well developed Constitutional Narrative: BMI is 22.1. General Appearance ED: well developed and NAD HEENT Reports moist mucous membranes normocephalic and atraumatic Neck supple and no JVD Resp normal respiratory effort and clear to auscultation bilaterally Cardio regular rate and regular rhythm GI non-distended Palpation: soft and tender LLQ, periumbilical and suprapubic; Negative for guarding or rebound tenderness present Neuro CN's II-XII intact bilaterally, moves all extremities and no sensory deficits noted Se (more content not included)... Normal [facility] Eosinophil percentageOrdered By: Louie Song on 10-04-2024 Eosinophils/100 WBC (Bld) 0.1 % 0-5 [facility] Erythrocyte distribution wid th ratioOrdered By: Louie Song on 10-04-2024 Erythrocyte distribution width (RBC) [Ratio] 11.9 % 11.6-14.6 [facility] Erythrocyte distribution wid th standard deviationOrdered By: Louie Song on 10-04-2024 Erythrocyte distribution width (RBC) [Ratio] 36.1 fl 35.1-43.9 [facility] Glomerular filtration rate ( GFR) estimation/1.73 sq m using serum, plasma, or whole bOrdered By: Louie Song on 10-04-2024 GFR/1.73 sq M.predicted among non-blacks MDRD (S/P/Bld) [Vol rate/Area] 106 mL/min/{1.73_m2} >60 [facility] Comment on above: mL/min/1.73m2 CKD-EP I Creatinine Equation (2020) Hematocrit Auto (Bld) [Volum e fraction]Ordered By: Louie Song on 10-04-2024 Hematocrit (Bld) [Volume fraction] 39.7 % 37-47 [facility] Hemoglobin measurementOrdere d By: Louie Song on 10-04-2024 Hemoglobin (Bld) [Mass/Vol] 13.4 g/dL 12.0-15.0 [facility] Immature granulocytes/100 WB C Auto (Bld)Ordered By: Louie Song on 10-04-2024 Immature granulocytes/100 WBC (Bld) 0.700 % 0.0-0.9 [facility] Comment on above: IG% - Immature Granu locytes (promyelocytes, myelocytes and metamyelocytes) > 1% indicates that a LEFT SHIFT is Present. Ketones Test strip Ql (U)Ord ered By: Louie Song on 10-04-2024 Ketones Ql (U) 50 mg/dl High Negative [facility] Laboratory - Chemistry and C hemistry - challengeOrdered By: Louie Song on 10-04-2024 AST [Catalytic activity/Vol] 19 U/L <32 [facility] Lipaseon 10-04-2024 Lipase [Catalytic activity/Vol] 48 U/L Normal 13-75 [facility] Comment on above: Result Comment: Johnson king note: LIPASE revised reference range effective 22. New Lipase methodology. Expected to produce lower values than the previous assay method. NEW Reference Range: 13 - 75 U/L Performed By: #### L 700.6800, L500.4050, L100.0100, L501.2450 ####[facility] [address] [place], [address] Lipase measurementOrdered By : Louie Song on 10-04-2024 Lipase [Catalytic activity/Vol] 48 U/L 13-75 [facility] Comment on above: Please note:LIPASE r evised reference range effective 22. New Lipase methodology. Expected to produce lower values than the previous assay method. NEW Reference Range: 13 - 75 U/L MCV (mean corpuscular volume ) determinationOrdered By: Louie Song on 10-04-2024 MCV (RBC) [Entitic vol] 83.9 fL 81-99 [facility] MR/POSTOP.ANE 10-04-2024 MR/POSTOP.[facility] Medical Records Department [address] [place] [address] Anesthesia Postop Eval I 10/04/24 1630 MR#: [id number] Acct: [id number] Name: YAQUELIN HARTLEY Rep #: [id number] : 1985 39 From: Sergio Diego CRNA PCP: Dr. Piedad Sun MD Status:ADM MAITE Y Race: C Location: [place] [address] Anesthesia: Postop Eval I Current Vital Signs Temperature: 97 F Pulse Rate: 81 Blood Pressure: 114/74 Respiratory Rate: 16 Pulse Ox: 98 Oxygen Delivery Method: Room Air Assessment Airway patent: Yes Spontaneous unlabored respirations: Yes Mental status: Awake and Calm nausea: No Vomiting: No Anesthesia Complication: No Fluid Hydration Crystalloid volume administer (ml): 500 Total IV fluid infused: 500 Progress Note Anesthesia document: Postop Eval 1 completed: Yes 10/04/24 1631 Date Sergio Dotterer TRIP FOLLOWER Cosigner Signature: Date CC: Signed Normal [facility] MR/[id number] 10-04-2024 MR/POSTOPAN2 [facility] Medical Records Department [address] [place] [address] Anesthesia Postop Eval II 10/04/241742 MR#: [id number] Acct: [id number] Name: YAQUELIN HARTLEY Rep #: [id number] : 1985 39 From: Lyndon Vitale MD PCP: Dr. Piedad Sun MD Status:ADM MAITE Y Race: C Location: [place] [address] Anesthesia Postop Eval I Sum Postop Eval Completion status Anesthesia document: Postop Eval 1 completed: Yes Anesthesia Postop Eval I Summary Anesthesia Postop Eval I Summary: Anesthesia Postop Eval I: Assessment Summary Airway patent Yes 10/04/24 16:31 [email or web address] Spontaneous unlabored Yes 10/04/24 16:31 TRIP [email or web address].MDOT respirations Mental status Awake,Calm 10/04/24 16:31 TRIP [email or web address].MDOT nausea No 10/04/24 16:31 TRIP [email or web address].MDOT Vomiting No 10/04/24 16:31 [email or web address] Anesthesia Postop Eval I: Fluid Summary Crystalloid volume administer 500 10/04/24 16:31 TRIP [email or web address].MDOT (ml) Colloids volume administered ( ml) Blood Product volume administered (ml) Total IV fluid infused 500 10/04/24 16:31 [email or web address] Anesthesia Postop Eval I: Summary Notes Anesthesia Complication No 10/04/24 16:31 [email or web address] Anesthesia Complication Comment: Post-operative progress note Anesthesia: Postop Eval II Evaluation Mental status: Awake and Calm Pain Level: 1 nausea: No Vomiting: No Complications Anesthesia Complication: No 10/04/241742 Date Lyndon Vitale MD Cosigner Signature: Date CC: Signed Normal [facility] Mean corpuscular hemoglobin (MCH) determinationOrdered By: Louie Song on 10-04-2024 MCH (RBC) [Entitic mass] 28.3 pg 27.0-32.0 [facility] Mean corpuscular hemoglobin concentration (MCHC) determinationOrdered By: Louie Song on 10-04-2024 MCHC (RBC) [Mass/Vol] 33.8 g/dL 32-36 [facility] Mean platelet volume determi nationOrdered By: Louie Song on 10-04-2024 Platelet mean volume (Bld) [Entitic vol] 10.3 fL 6.2-12.0 [facility] Microscopic analysis of urin e for red blood cells (RBC)Ordered By: Louie Song on 10-04-2024 Microscopic analysis of urine for red blood cells (RBC) 0-5 SEEN /hpf 0-5 [facility] Monocyte percentageOrdered B y: Louie Song on 10-04-2024 Monocytes/100 WBC (Bld) 5.5 % 0-10 [facility] Mucus LM Ql (Urine sed)Order ed By: Louie Song on 10-04-2024 Mucus Ql (Urine sed) 0 SEEN /hpf [facility] Neutrophil percentageOrdered By: Louie Song on 10-04-2024 Neutrophils/100 WBC (Bld) 88.2 % High 47-70 [facility] Nitrite Test strip Ql (U)Ord ered By: Louie Song on 10-04-2024 Nitrite Ql (U) Negative Negative [facility] Nucleated red blood cell per centageOrdered By: Louie Song on 10-04-2024 Nucleated RBC/100 WBC (Bld) [Ratio] 0 % 0-5 [facility] Operative Reporton Operative Report [facility] Medical Records Department [address] [place], [place] [address] [place] [address] Operative Report 10/04/24 1624 MR#: [id number] Acct: [id number] Name: YAQUELIN HARTLEY Rep #: [id number] : 1985 39 From: Lien Tyson MD PCP: Dr. 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 Type of Anesthesia: General/Supplemental RN Documented Start/Stop Times: Operation Date: 10/04/24 15:00 Case Time Into Pre-Op 10/04/24 14:42 Out of Pre-Op 10/04/24 15:37 Anesthesia Start 10/04/24 15:39 Into Room 10/04/24 15:39 Procedure Start 10/04/24 15:54 Procedure End 10/04/24 16:21 Procedure Start Time: 15:54 Procedure Stop Time: 16:21 Select all DRAINS/GRAFTS/IMPLANTS that apply: None Special Medications: Zosyn 3.375 g IV x 1 given in the ER for acute appendicitis Estimated Blood Loss: < 10 cc Specimen collected: Yes Description of specimen(s) removed: Appendix Description of surgery: Indications: 36-year-old female presented to the ER with new right lower quadrant pain this morning. On workup she was found to have acute appendicitis on CT and a leukocytosis of 15.5. Patient was started on antibiotics in the ER for acute appendicitis-Zosyn IV in the ER Description of the procedure: The patient was placed on operating table in supine position. General anesthesia was induced. A timeout was completed verifying correct patient, procedure, position and special equipment prior to beginning procedure. Abdomen was prepped and draped in usual sterile fashion. Incision was made in the natural skin line below the umbilicus with a 15 blade scalpel. The fascia was elevated and incised. Entry into the peritoneum was confirmed visually and no bowel was noted in the vicinity of the incision. The Jernigan trocar was placed under direct vision. Abdomen insufflated with a pressure of 12-15 mmHg. Patient tolerated insertion well. The scope was inserted and the abdomen inspected. No injuries from initial trocar placement were noted. Minimal amount of fluid was seen in the right lower quadrant. An direct visualization 2 -5 mm trocars were placed one above the symphysis pubis and below the hairline and one in the left lower quadrant lateral to the rectus muscle. Care is taken to avoid injury to the bladder and inferior epigastric vessels. The table was placed in Trendelenburg position with the right side elevated. The appendix was grasped with atraumatic grasper and elevated. It was noted to be inflamed. A window was developed in the mesoappendix at the point between the base of the appendix and the cecum. An endoscopic 45 mm linear cutting stapler blue load was then used to divide and staple the base of the appendix. Enseal was used to divide the mesoappendix. The appendix was withdrawn into the Jernigan trocar after being placed endoscopically retrieval bag. Appendix was sent to pathology. The appendiceal stump was then irrigated and hemostasis was assured. Fluid was suctioned no other pathology was identified. Secondary trochars were removed under direct visualization. No bleeding was noted trocar sites. The laparoscope withdrawn and the umbilical trocar removed. The abdomen was allowed to collapse. Local anesthesia of 27 mL of 0.25% Marcaine was used at the incision sites. The umbilical trocar site was closed with the [id number] 0 Vicryl suture. The skin was closed using sutures of 4-0 Monocryl and Steri-Strips. The patient was extubated. The patient tolerated the procedure well and was taken to the postanesthesia care unit in satisfactory condition. Surgical Findings: See operative report Complications Complications: No 10/04/24 1626 Cosigner Signature (if applicable): CC: Dr. Piedad Sun MD; Dr. Lien Tyson MD Signed Normal [facility] Platelet countOrdered By: Kevyn Song on 10-04-2024 Platelets (Bld) [#/Vol] 264 10*3/uL 150-450 [facility] Potassium measurement (mass/ volume)Ordered By: Louie Song on 10-04-2024 Potassium (Unsp spec) [Mass/Vol] 3.6 mmol/L 3.3-5.1 [facility] ,Serum,hCG Quali.on 10-04-2024 HCG, SERUM QUAL Negative Normal [facility] Comment on above: Performed By: #### L 700.6800, L500.4050, L100.0100, L501.2450 #### [facility] [place] [address] [address] [place], [address] Protein Test strip Ql (U)Ord ered By: Louie Song on 10-04-2024 Protein Ql (U) 15 mg/dl High Negative [facility] RBC Auto (Bld) [#/Vol]Ordere d By: Louie Song on 10-04-2024 RBC (Bld) [#/Vol] 4.73 10*6/uL 4.2-5.4 [facility] Serum beta-hCG test, qualita tiveOrdered By: Louie Song on 10-04-2024 Beta HCG ( test) Ql Negative [facility] Serum creatinine measurement (mass/volume)Ordered By: Louie Song on 10-04-2024 Creatinine [Mass/Vol] 0.74 mg/dL 0.70-1.20 [facility] Serum globulin measurementOr dered By: Louie Song on 10-04-2024 Globulin (S) [Mass/Vol] 3.1 g/dL 2.2-4.2 [facility] Serum glucose measurement (m ass/volume)Ordered By: Louie Song on 10-04-2024 Glucose [Mass/Vol] 99 mg/dL 70-99 [facility] Serum or plasma alanine diamond otransferase (ALT) measurementOrdered By: Louie Song on 10-04-2024 ALT [Catalytic activity/Vol] 12 U/L <35 [facility] Serum or plasma albumin renu urement (mass/volume)Ordered By: Louie Song on 10-04-2024 Albumin [Mass/Vol] 4.7 g/dL 3.5-5.0 [facility] Serum or plasma albumin/glob ulin mass ratioOrdered By: Louie Song on 10-04-2024 Albumin/Globulin [Mass ratio] 1.5 {ratio} 0.9-2.4 [facility] Serum or plasma alkaline jenna sphatase measurementOrdered By: Louie Song on 10-04-2024 ALP [Catalytic activity/Vol] 43 U/L 35-104 [facility] Serum or plasma calcium renu urement (mass/volume)Ordered By: Louie Song on 10-04-2024 Calcium [Mass/Vol] 9.2 mg/dL 7.6-11.0 [facility] Serum or plasma urea nitroge n measurement (mass/volume)Ordered By: Louie Song on 10-04-2024 Urea nitrogen [Mass/Vol] 11 mg/dL 4-19 [facility] Sodium levelOrdered By: Louie Song on 10-04-2024 Sodium [Moles/Vol] 138 mmol/L 133-145 [facility] Squamous epithelial cells de tection in urine sediment by light microscopyOrdered By: Louie Song on 10-04-2024 Epithelial cells.squamous LM Ql (Urine sed) 0-5 SEEN /hpf 5-10 [facility] Surgery Specimen Level IIIon 10-04-2024 Surgery Specimen Level III ---- Patient Age/Sex Location Account Attending Physician ---- YAQUELIN HARTLEY 39/F MS3 [id number] Dr. Lien Tyson MD ---- Specimen: [id number] Received: 10/05/24 Status: AIDA Ricci Num: [id number] Spec Type: APPENDIX Subm Dr: Dr. Lien Tyson MD HEADER OPERATION: Laparoscopic appendectomy PRE-OP DIAGNOSIS: Acute appendicitis TISSUE SUBMITTED: A- Appendix ---- MICROSCOPIC DIAGNOSIS A. Appendix, appendectomy: * Acute suppurative appendicitis with transmural inflammation and periappendicitis * Endometriosis MICROSCOPIC DESCRIPTION Slides are reviewed. GROSS DESCRIPTION A. Received in formalin labeled with the patient's name and date of . Designated as " appendix" is a 7.4 x 1.0 cm george-pink appendix with up to 1.4 cm of attached focally congested mesoappendix. The proximal margin is inked black and shaved. The serosa has a moderate amount of patchy fibrinous exudate. Sectioning reveals a george focally erythematous mucosa with a moderate amount of hemorrhagic material within the lumen; the distal tip is somewhat irregular and fibrotic however, no definitive lesions are grossly appreciated. Microbiology Analyst sections are submitted in 2 cassettes as follows: A1: Distal tipA2: Margin, cross-sections UT 10/05/2024 CPT:00977 ---- Patient Age/Sex Location Account Attending Physician ---- YAQUELIN HARTLEY 39/F MS3 [id number] Dr. Lien Tyson MD ---- Signed (signature on file) Dr. Essie Callahan DO 10/15/24 0548 ---- Normal [facility] Comment on above: Performed By: #### P SUIII ####[facility] [address] [place], [place], [address] Total proteinOrdered By: Ana Song on 10-04-2024 Protein [Mass/Vol] 7.7 g/dL 5.9-8.4 [facility] Urinalysis, Completeon 10-04 EPI,SQUAMOUS 0-5 SEEN Normal 5-10 [facility] Comment on above: Order Comment: CLEAN CATCH Performed By: #### L 400.0001 ####[facility] [address] [place], [address] RBC 0-5 SEEN Normal 0-5 [facility] Comment on above: Order Comment: CLEAN CATCH Performed By: #### L 400.0001 ####[facility] [address] [place], [place], [id number] BACTERIA 0 SEEN Normal None Seen [facility] Comment on above: Order Comment: CLEAN CATCH Performed By: #### L 400.0001 ####[facility] [address] [place], [address] Mucus Ql (Urine sed) 0 SEEN Normal [facility] Comment on above: Order Comment: CLEAN CATCH Performed By: #### L 400.0001 ####[facility] [address] [place], [address] WBC 0 SEEN Normal 0-5 [facility] Comment on above: Order Comment: CLEAN CATCH Performed By: #### L 400.0001 ####[facility] [address] [place], [place], [id number] Urine clarityOrdered By: Ana Song on 10-04-2024 Clarity (U) Clear Clear [facility] Urine color determinationOrd ered By: Louie Song on 10-04-2024 Color (U) Yellow Yellow [facility] Urine glucose detectionOrder ed By: Louie Song on 10-04-2024 Glucose Ql (U) Normal mg/dl Normal [facility] Urine leukocyte esterase det ection by dipstickOrdered By: Louie Song on 10-04-2024 Leukocyte esterase Test strip Ql (U) Negative Negative [facility] Urine pHOrdered By: Louie valdes on 10-04-2024 pH (U) 6.0 [pH] 5.0 - 8.0 [facility] Urine sediment bacteria coun t by microscopy (number/high power field)Ordered By: Louie Song on 10-04-2024 Bacteria LM.HPF (Urine sed) [#/Area] 0 /[HPF] None Seen [facility] Urine specific gravity measu rementOrdered By: Louie Song on 10-04-2024 Specific gravity (U) [Rel density] 1.010 1.002-1.030 [facility] Urine urobilinogen measureme ntOrdered By: Louie Song on 10-04-2024 Urobilinogen Ql (U) Normal mg/dl Normal [facility] White blood cell (WBC) count Ordered By: Louie Song on 10-04-2024 WBC (Bld) [#/Vol] 15.5 10*3/uL High 4.4-11.0 [facility] White blood cell countOrdere d By: Louie Song on 10-04-2024 White blood cell count 0 SEEN /hpf 0-5 W [facility] Gastroenterology Visit Repor ton 09-13-2024 Gastroenterology Visit Report [facility] Gastroenterology [address] [place] [address] OFFICE VISIT Date of Service: 09/13/24 MR#: [id number] Acct: [id number] Name: YAQUELIN HARTLEY Rep #: [id number] : 1985 Provider: SARA blackburn Age/Sex: 39/F Location[place] [facility] Status: Signed Intake Vital Signs 06/14/24 08:39 [...] Chief Complaint: bowel issues my whole life 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 - Start a probiotic (Align, Culturelle or Odilo) once daily. These are all multispecies probiotics, [...] she forgets (more content not included)... Normal [facility] Colonoscopy Reporton 025 Colonoscopy Report [facility] Medical Records Department [address] [place] [address] Colonoscopy Report MR#: [id number] Acct: [id number] Name: YAQUELIN HARTLEY Rep #: [id number] : 1985 38 From: Phillip Shah DO PCP: Dr. Piedad Sun MD Status[place] [facility] Patient Name: Yaquelin Hartley Procedure Date: 08/23/2024 6:50 AM Date of : 1985 Age: 38 Procedure: Colonoscopy Indications: Generalized abdominal pain, Change in bowel habits, Constipation, Obstipation Providers: Phillip Shah DO Referring MD: Piedad Sun Md Medicines: Monitored Anesthesia Care Patient Profile: [...] GI office. Procedure Code(s): --- Professional --- 31952, Colonoscopy, flexible; with biopsy, single or multiple CPT copyright 2021 [employer]. All rights reserved. The codes documented in this report are preliminary and upon curer acid drum review may be revised to meet current compliance requirements. (more content not included)... Normal [facility] MR/POSTOP.[facility] 08-23-2024 MR/POSTOP.[facility] Medical Records Department [address] [place] [address] Anesthesia Postop Eval I 08/23/24728 MR#: [id number] Acct: [id number] Name: YAQUELIN HARTLEY Rep #: [id number] : 1985 38 From: Lucien Naqvi PCP: Dr. Piedad Sun MD Status:[place] [facility] [place] Race: C Location: [place] [address] Anesthesia: Postop Eval I Current Vital Signs [...] Lucien Nascimento Signature: Date CC: Signed Normal [facility] MR/[id number] 08-23-2024 MR/POSTOPAN2 [facility] Medical Records Department [address] [place] [address] Anesthesia Postop Eval II 08/23/24812 MR#: [id number] Acct: [id number] Name: YAQUELIN HARTLEY Rep #: [id number] : 1985 38 From: Elisabet Pinto PCP: Dr. Piedad Sun MD Status:REG [facility] [place] Race: C Location: [place] [address] Anesthesia Postop Eval I Sum Postop Eval [...] nausea: No Vomiting: No 08/23/24812 Date Elisabet Nascimento Signature: Date CC: Signed Normal [facility] ,Urineon 08-23-2024 Beta HCG ( test) Ql (U) Negative Normal [facility] Comment on above: Result Comment: Very dilute urine specimens, as indicated by a low specific gravity, may not contain mechanical service representative levels of hCG. If is still suspected, a first morning urine specimen should be collected 48 hours later and tested. Performed By: #### L 400.7600 ####[facility] [id number] [place], [place], [address] Surgery Specimen Level Eduardo 08-23-2024 Surgery Specimen Level IV ---- Patient Age/Sex Location Account Attending Physician ---- YAQUELIN HARTLEY 38/F JORDAN [id number] Phillip Shah DO ---- Specimen: [id number] Received: 08/23/24 Status: AIDA Ricci Num: [id number] Spec Type: COLON BX Subm Dr: DO DEWEY [facility] OPERATION: Colonoscopy and biopsy and polypectomy PRE-OP [...] the patient's name, date of , and "terminal ileum" are 3 george-pink fragments of mucosal tissue ranging from 0.4 x 0.2 x 0.2 cm to 0.5 x 0.2 x 0.2 cm. Submitted in toto in A1. B. Received in formalin in a container labeled with the patient's name, date of , and polyp hepatic flexure" is a 0.3 x 0.3 x 0.2 cm fragment of george-pink mucosal tissue. Submitted in toto in B1. C. Received in formalin in a container labeled with the patient's name, date of , and random colon biopsies" are multiple george-pink fragments of mucosal tissue measuring 1.0 x 0.6 x 0.2 cm in aggregate. Submitted in toto in C1. [facility] 08-23-2024 CPT:14326l6 ---- Patient Age/Sex Location Account Attending Physician ---- YAQUELIN HARTLEY 38/F EN [id number] Phillip Shah DO ---- Signed (signature on file) Dr. Maylin Angulo MD 08/28/24 1210 ---- Normal [facility] Comment on above: Performed By: #### P SUIV #### [facility] Laboratory [facility] [place], [address] Urine testOrdered By: Sven Baker on 08-23-2024 HCG ( test) Ql (U) Negative [facility] Comment on above: Very dilute urine sp ecimens, as indicated by a low specificgravity, may not contain mechanical service representative levels of hCG. If is still [...] a detailed fax or copy. [facility]: [facility]QUEL[facility] 1985 [id number] Exam Date/Time: 07/05/2024 15:26 Procedure: BI US BREAST LIMITED RIGHT Ordering Provider: CIFUENTES LORALEE Reason For Exam: LUMP IN BREAST This exam was performed at [place] [address] PATIENT CANCER HISTORY: No Personal History of Cancer FAMILY CANCER HISTORY: No Family History of Cancer COMPARISONS: None. MAMMOGRAM: Image views: 2D CC and MLO views were acquired. 3D CC and MLO views were acquired. Markings on images: BB's = Nipples; skin lesions Open tonkawa = Palpable Line = Scar TISSUE DENSITY: [...] of this examination. LIFETIME BREAST CANCER RISK: Devier-Kayla 8: 12.74% - If greater than or [...] Electronically Signed Date/Time: 07/05/2024 4:31 PM EDT Normal [facility] DBT Breast - bilateral diagn osticon 07-05-2024 Patient Name: [facility]AQUELIN [facility] 1985 [id number] Exam Date/Time: 07/05/2024 14:50 Procedure: BI MAMMOGRAM DIAGNOSTIC TOMOSYNTHESIS BILATERAL Ordering Provider: CIFUENTES LORALEE Reason For Exam: This exam was performed at [place] [address] PATIENT CANCER HISTORY: No Personal History of Cancer FAMILY CANCER HISTORY: No Family History of Cancer COMPARISONS: None. MAMMOGRAM: Image views: 2D CC and MLO views were acquired. 3D CC and MLO views were acquired. Markings on images: BB's = Nipples; skin lesions Open tonkawa = Palpable Line = Scar TISSUE DENSITY: [...] Donna Bravo MD - 07/05/2024 Patient Name: YAQUELIN [facility] : 1985 [id number] Exam Date/Time: 07/05/2024 14:50 Procedure: BI MAMMOGRAM DIAGNOSTIC TOMOSYNTHESIS BILATERAL Ordering Provider: CIFUENTES LORALEE Reason For Exam: This exam was performed at [place] [address] PATIENT CANCER HISTORY: No Personal History of Cancer FAMILY CANCER HISTORY: No Family History of Cancer COMPARISONS: None. MAMMOGRAM: Image views: 2D CC and MLO views were acquired. 3D CC and MLO views were acquired. Markings on images: BB's = Nipples; skin lesions Open tonkawa = Palpable Line = Scar TISSUE DENSITY: [...] of this examination. LIFETIME BREAST CANCER RISK: Ayan-Kayla 8: 12.74% - If greater than or [...] Electronically Signed Date/Time: 07/05/2024 4:31 PM EDT [facility] Radiology Study observation (narrative) [facility] He alth No Panel Informationon 07-05 Benign simple cyst [...] of this examination. LIFETIME BREAST CANCER RISK: Tyrer-Cuzick 8: 12.74% - If greater than or [...] MD Electronically Signed Date/Time: 07/05/2024 4:31 PM T [facility] No Panel InformationOrdered By: Donna Bravo on 07-05-2024 [facility] [employer] [facility] Phone: US Breast - right limitedon 07-05-2024 Patient Name: YAQUELIN HARTLEY : 1985 Exam Date/Time: 07/05/2024 15:26 Procedure: BI US BREAST LIMITED RIGHT Ordering Provider: CIFUENTES LORALEE Reason For Exam: LUMP IN BREAST This exam was performed at [place] [address] PATIENT CANCER HISTORY: No Personal History of Cancer FAMILY CANCER HISTORY: No Family History of Cancer COMPARISONS: None. MAMMOGRAM: Image views: 2D CC and MLO views were acquired. 3D CC and MLO views were acquired. Markings on images: BB's = Nipples; skin lesions Open tonkawa = Palpable Line = Scar TISSUE DENSITY: [...] Donna Bravo MD - 07/05/2024 Patient Name: YAQUELIN HARTLEY : 1985 Exam Date/Time: 07/05/2024 15:26 Procedure: BI US BREAST LIMITED RIGHT Ordering Provider: CIFUENTES LORALEE Reason For Exam: LUMP IN BREAST This exam was performed at [place] [address] PATIENT CANCER HISTORY: No Personal History of Cancer FAMILY CANCER HISTORY: No Family History of Cancer COMPARISONS: None. MAMMOGRAM: Image views: 2D CC and MLO views were acquired. 3D CC and MLO views were acquired. Markings on images: BB's = Nipples; skin lesions Open tonkawa = Palpable Line = Scar TISSUE DENSITY: [...] of this examination. LIFETIME BREAST CANCER RISK: Ayan-Kayla 8: 12.74% - If greater than or [...] Electronically Signed Date/Time: 07/05/2024 4:31 PM EDT [facility] Radiology Study observation (narrative) [facility] Abdomen Single Viewon 2024 Abdomen Single View [facility] Imaging Services [address] [place] [address] Abdomen Single View MR#: [id number] Acct: [id number] Name: YAQUELIN HARTLEY Rep #: [id number] : 1985 F 38 From: Thuan Erickson MD PCP: Dr. Piedad Sun MD Status: REG CLI Study: Abdomen Single View Date of Exam: 06/21/24 Exam# [id number] Ordering Dr: Rowena Maxwell SUPERVISOR CONTACT LENS- C EXAM: Abdomen single view CLINICAL HISTORY: Sitz marker day 5 COMPARISON: 06/19/2024 TECHNIQUE: 2 supine views of the abdomen and pelvis FINDINGS: Again no Sitz markers are present. No significant appearing fecal load. No gaseous distention of bowel. Intrauterine device and pelvic phleboliths again noted. RAD/Abdomen Single View IMPRESSION: Again no Sitz markers are present. Reading Location: [facility] CC: SARA Maxwell; Dr. 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 Piedad Sun MD Status: REG CLI Study: Abdomen Single View Date of Exam: 06/19/24 Exam# [id number] Ordering Dr: Rowena Maxwell EXAM: Abdomen single [...] IMPRESSION: No markers are present. Reading Location: [facility] CC: SARA Maxwell; Dr. 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 [address] OFFICE VISIT Date of Service: 06/14/24 MR#: [id number] Acct: [id number] Name: YAQUELIN HARTLEY Rep #: [id number] : 1985 Provider: SARA blackburn Age/Sex: 38/F Location[place] [facility] Status: Signed Intake Vital Signs 06/14/24 08:39 Height 5 ft 3 in Weight: 126 lb 8 oz BMI 22.4 BP 117/82 H Respiration 16 Pulse 73 Pulse Oximetry (%) 98 Oxygen Delivery Method room air Intake Visit Reasons: IBS , Ongoing GI Issues Chief Complaint: bowel issues my whole life Upholstery Bundler Required: No Is patient in pain?: No [...] Complaint: bowel issues my whole life Details: YAQUELIN HARTLEY, is a 38 F who presents [...] well nourished Orientation: alert and oriented x3 HENMT Head: normocephalic Ears: hearing grossly normal bilaterally [...] disease): St (more content not included)... Normal [facility] CBC (H/H, RBC, INDICES, WBC, PLT)on 05-04-2024 Erythrocyte distribution width (RBC) [Ratio] 11.8 % Normal 11.0-15.0 [facility] Comment on above: Performed By: #### 7 600, 49946, 175 #### [facility] [address], [address] [place] [address] [facility]: Gallito Tovar MD Hematocrit (Bld) [Volume fraction] 43.2 % Normal 35.0-45.0 [facility] Comment on above: Performed By: #### 7 600, , 175 #### [facility] [address], [address] [place] [address] [facility]: Gallito Tovar MD Hemoglobin (Bld) [Mass/Vol] 14.1 g/dL Normal 11.7-15.5 [facility] Comment on above: Performed By: #### 7 600, , 1758 #### [facility] [place] [address] [facility]: Gallito Tovar MD MCH (RBC) [Entitic mass] 28.0 pg Normal 27.0-33.0 [facility] Comment on above: Performed By: #### 7 600, , 1758 #### [facility] [place] [address] [facility]: Gallito Tovar MD MCHC (RBC) [Mass/Vol] 32.6 g/dL Normal 32.0-36.[address] [facility] Comment on above: Result Comment: For adults, a slight decrease in the calculated MCHC value (in the range of 30 to 32 g/dL) is most likely not clinically significant; however, it should be interpreted with caution in correlation with other red cell parameters and the patient's clinical condition. Performed By: #### 7 600, 00169, 175 #### [facility] [place] [address] [facility]: Gallito Tovar MD MCV (RBC) [Entitic vol] 85.9 fL Normal 80.0-100.0 [facility] Comment on above: Performed By: #### 7 600, 41941, 175 #### [facility] of [place] [address] [facility]: Gallito Tovar MD Platelet mean volume (Bld) [Entitic vol] 10.9 fL Normal 7.5-12.5 [facility] Comment on above: Performed By: #### 7 600, 82279, 1759 #### [facility] of [place] [address] [facility]: Gallito Tovar MD Platelets (Bld) [#/Vol] 297 10*3/uL Normal 140-400 [facility] Comment on above: Performed By: #### 7 600, 90253, 175 #### [facility] of [place] [address] [facility]: Gallito Tovar MD RBC (Bld) [#/Vol] 5.03 10*6/uL Normal 3.80-5.10 [facility] Comment on above: Performed By: #### 7 600, 30800, 1759 #### [facility] of [place] [address] [facility]: Gallito Tovar MD WBC (Bld) [#/Vol] 6.2 10*3/uL Normal 3.8-10.8 [facility] Comment on above: Performed By: #### 7 600, 58737, 1758 #### [facility] [place] [address] [facility]: Gallito Tovar MD COMPREHENSIVE METABOLIC PANE [facility] 05-04-2024 Albumin [Mass/Vol] 5.4 g/dL High 3.6-5.1 [facility] Comment on above: Performed By: #### 7 600, 41399, 1759 #### [facility] of [place] [address] [facility]: Gallito Tovar MD Albumin/Globulin [Mass ratio] 2.0 {ratio} Normal 1.0-2.5 [facility] Comment on above: Performed By: #### 7 600, 79804, 1759 #### [facility] of [address], [address] [place] [address] [facility]: Gallito Tovar MD ALP [Catalytic activity/Vol] 35 U/L Normal 31-125 [facility] Comment on above: Performed By: #### 7 600, 06996, 1759 #### [facility] of [address], [address] [place] [address] [facility]: Gallito Tovar MD ALT [Catalytic activity/Vol] 11 U/L Normal 6-29 [facility] Comment on above: Performed By: #### 7 600, 43543, 175 #### [facility] of [address], [address] [place] [address] [facility]: Gallito Tovar MD AST [Catalytic activity/Vol] 14 U/L Normal 10-30 [facility] Comment on above: Performed By: #### 7 600, 87047, 1758 #### [facility] of [address], [address] [place] [address] [facility]: Gallito Tovar MD Bilirubin [Mass/Vol] 0.7 mg/dL Normal 0.2-1.2 [facility] Comment on above: Performed By: #### 7 600, 93475, 175 #### [facility] of [address], [address] [place] [address] [facility]: Gallito Tovar MD BUN/CREATININE RATIO SEE NOTE: Normal 6-22 [facility] Comment on above: Result Comment: Not Reported: BUN and Creatinine are within reference range. Performed By: #### 7 600, 27210, 175 #### [facility] of [address], [address] [place] [address] [facility]: Gallito Tovar MD Calcium [Mass/Vol] 9.7 mg/dL Normal 8.6-10.2 [facility] Comment on above: Performed By: #### 7 600, 22170, 175 #### [facility] of [address], [address] [place] [address] [facility]: Gallito Tovar MD Chloride [Moles/Vol] 100 mmol/L Normal 98-110 [facility] Comment on above: Performed By: #### 7 600, , 175 #### [facility] [address], [address] [place] [address] [facility]: Gallito Tovar MD CO2 [Moles/Vol] 28 mmol/L Normal 20-32 [facility] Comment on above: Performed By: #### 7 600, , 1758 #### [facility] [place] [address] [facility]: Gallito Tovar MD Creatinine [Mass/Vol] 0.76 mg/dL Normal 0.50-0.[address] [facility] Comment on above: Performed By: #### 7 600, , 1758 #### [facility] [place] [address] [facility]: Gallito Tovar MD GFR/1.73 sq M.predicted among non-blacks MDRD (S/P/Bld) [Vol rate/Area] 104 mL/min/{1.73_m2} Normal > OR = 60 [facility] Comment on above: Performed By: #### 7 600, , 1758 #### [facility] [place] [address] [facility]: Gallito Tovar MD Globulin (S) [Mass/Vol] 2.7 g/dL Normal 1.9-3.7 [facility] Comment on above: Performed By: #### 7 600, , 1758 #### [facility] [place] [address] [facility]: Gallito Tovar MD Glucose [Mass/Vol] 83 mg/dL Normal 65-99 [facility] Comment on above: Result Comment: Fasting reference interval Performed By: #### 7 600, , 175 #### [facility] of [place] [address] [facility]: Gallito Tovar MD Potassium [Moles/Vol] 4.3 mmol/L Normal 3.5-5.3 Count Includes [facility] Comment on above: Performed By: #### 7 600, 48044, 1759 #### [facility] of [place] [address] [facility]: Gallito Tovar MD Protein [Mass/Vol] 8.1 g/dL Normal 6.1-8.1 [facility] Comment on above: Performed By: #### 7 600, 89419, 1759 #### [facility] of [address], [address] [place] [address] [facility]: Gallito Tovar MD Sodium [Moles/Vol] 137 mmol/L Normal 135-146 [facility] Comment on above: Performed By: #### 7 600, 75628, 1758 #### [facility] of [place] [address] [facility]: Gallito Tovar MD Urea nitrogen [Mass/Vol] 11 mg/dL Normal 7-25 [facility] Comment on above: Performed By: #### 7 600, 51948, 1758 #### [facility] of [place] [address] [facility]: Gallito Tovar MD LIPID PANEL, STANDARD Cholesterol [Mass/Vol] 260 mg/dL High <200 [facility] Comment on above: Order Comment: 0 0 0 Performed By: #### 7 600, 64499, 1758 #### [facility] of [address], [address] [place] [address] [facility]: Gallito Tovar MD Cholesterol in HDL [Mass/Vol] 78 mg/dL Normal > OR = 50 [facility] Comment on above: Order Comment: 0 0 0 Performed By: #### 7 600, 53025, 175 #### [facility] of [place] [address] [facility]: Gallito Tovar MD Cholesterol in LDL [Mass/Vol] 162 mg/dL High [facility] Comment on above: Order Comment: 0 0 0 Result Comment: Refe rence range: <100 Desirable range <100 mg/dL for primary prevention; <70 mg/dL for patients with CHD or diabetic patients with > or = 2 CHD risk factors. LDL-C is now calculated using the Saulo calculation, which is a validated novel method providing better accuracy than the Friedewald equation in the estimation of LDL-C. Umang SS et al. JACE. 2013;310(19): 8867-5142 (http://education.[employer]faq/FVK295) Performed By: #### 7 600, 47237, 3259 #### [facility] [address], [address] [place] [address] [facility]: Gallito Tovar MD Cholesterol.total/Iraida sterol in HDL [Mass ratio] 3.3 {ratio} Normal <5.0 [facility] Comment on above: Order Comment: 0 0 0 Performed By: #### 7 600, 39159, 6653 #### [facility] [address], [address] [place] [address] [facility]: Gallito Tovar MD NON HDL CHOLESTEROL 182 mg/dL (calc) High <130 [facility] Comment on above: Order Comment: 0 0 0 Result Comment: For patients with diabetes plus 1 major ASCVD risk factor, treating to a non-HDL-C goal of <100 mg/dL (LDL-C of <70 mg/dL) is considered a therapeutic option. Performed By: #### 7 600, 45086, 2914 #### [facility] [address], [address] [place] [address] [facility]: Gallito Tovar MD Triglyceride [Mass/Vol] 92 mg/dL Normal <150 [facility] Comment on above: Order Comment: 0 0 0 Performed By: #### 7 600, 94065, 1277 #### [facility] [place] [address] [facility]: Gallito Tovar MD Vital Signs Date Time Vital Sign Value Performing Clinician Raghavendra duron 11-24-2024 09:29-0400 Body height 160.[address] Piedad Sun MD Work Phone: [facility] 11-24-2024 09:29-0400 Body mass index (BMI) [Ratio] 21.8 kg/m2 Dr. Piedad Sun MD Work Phone: [facility] 11-24-2024 09:29-0400 Body weight 55.[address] Piedad Sun MD Work Phone: [facility] 11-24-2024 09:29-0400 Diastolic blood pressure 84 mm[Hg] Dr. Piedad Sun MD Work Phone: 4(427)890-839936 [place] [address] 11-24-2024 09:29-0400 Systolic blood pressure 126 mm[Hg] Dr. Piedad Sun MD Work Phone: [facility] 10-18-2024 09:22-0400 Body height 160.[address] Piedad Sun MD Work Phone: 7(772)969-608736 [place] [address] 10-18-2024 09:22-0400 Body mass index (BMI) [Ratio] 21.8 kg/m2 Dr. Piedad Sun MD Work Phone: [facility] 10-18-2024 09:22-0400 Body weight 55.[address] Piedad Sun MD Work Phone: [facility] 10-18-2024 09:22-0400 Diastolic blood pressure 85 mm[Hg] Dr. Piedad Sun MD Work Phone: [facility] 10-18-2024 09:22-0400 Systolic blood pressure 123 mm[Hg] Dr. Piedad Sun MD Work Phone: [facility] 10-04-2024 19:36-0400 Body temperature 98.2 [degF] Dr. Piedad Sun MD Work Phone: [facility] 10-04-2024 19:36-0400 Diastolic blood pressure 72 mm[Hg] Dr. Piedad Sun MD Work Phone: [facility] 10-04-2024 19:36-0400 Heart rate 64 /min Dr. Piedad Sun MD Work Phone: [facility] 10-04-2024 19:36-0400 Respiratory rate 16 /min Dr. Piedad Sun MD Work Phone: [facility] 10-04-2024 19:36-0400 SaO2% (BldA) [Mass fraction] 100 % Dr. Piedad Sun MD Work Phone: [facility] 10-04-2024 19:36-0400 Systolic blood pressure 127 mm[Hg] Dr. Piedad Sun MD Work Phone: [facility] 10-04-2024 17:26-0400 Body height 160.[address] Piedad Sun MD Work Phone: [phone] [place] [address] 10-04-2024 17:26-0400 Body mass index (BMI) [Ratio] 22.1 kg/m2 Dr. Piedad Sun MD Work Phone: [facility] 10-04-2024 17:26-0400 Body weight 56.[address] Piedad Sun MD Work Phone: [facility] 10-04-2024 13:55-0400 Body temperature 98.6 [degF] Dr. Piedad Sun MD Work Phone: [facility] 10-04-2024 13:55-0400 Diastolic blood pressure 72 mm[Hg] Dr. Piedad Sun MD Work Phone: [facility] 10-04-2024 13:55-0400 Heart rate 70 /min Dr. Piedad Sun MD Work Phone: [facility] 10-04-2024 13:55-0400 Respiratory rate 14 /min Dr. Piedad Sun MD Work Phone: [facility] 10-04-2024 13:55-0400 SaO2% (BldA) [Mass fraction] 99 % Dr. Piedad Sun MD Work Phone: [facility] 10-04-2024 13:55-0400 Systolic blood pressure 123 mm[Hg] Dr. Piedad Sun MD Work Phone: [facility] 10-04-2024 10:11-0400 Body height 160.[address] Piedad Sun MD Work Phone: [facility] 10-04-2024 10:11-0400 Body mass index (BMI) [Ratio] 22.1 kg/m2 Dr. Piedad Sun MD Work Phone: [facility] 10-04-2024 10:11-0400 Body weight 56.[address] Piedad Sun MD Work Phone: [facility] 09-13-2024 08:11-0400 Body height 160.[address] Piedad Sun MD Work Phone: [facility] 09-13-2024 08:11-0400 Body mass index (BMI) [Ratio] 22.8 kg/m2 Dr. Piedad Sun MD Work Phone: [facility] 09-13-2024 08:11-0400 Body temperature 98.2 [degF] Dr. Piedad Sun MD Work Phone: [facility] 09-13-2024 08:11-0400 Body weight 58.[address] Piedad Sun MD Work Phone: [facility] 09-13-2024 08:11-0400 Diastolic blood pressure 82 mm[Hg] Dr. Piedad Sun MD Work Phone: [facility] 09-13-2024 08:11-0400 Heart rate 74 /min Dr. Piedad Sun MD Work Phone: [facility] 09-13-2024 08:11-0400 Respiratory rate 16 /min Dr. Piedad Sun MD Work Phone: [facility] 09-13-2024 08:11-0400 SaO2% (BldA) [Mass fraction] 98 % Dr. Piedad Sun MD Work Phone: [facility] 09-13-2024 08:11-0400 Systolic blood pressure 122 mm[Hg] Dr. Piedad Sun MD Work Phone: [facility] 08-23-2024 07:40-0400 Body temperature 96.9 [degF] Dr. Piedad Sun MD Work Phone: [facility] 08-23-2024 07:40-0400 Diastolic blood pressure 64 mm[Hg] Dr. Piedad Sun MD Work Phone: [facility] 08-23-2024 07:40-0400 Heart rate 59 /min Dr. Piedad Sun MD Work Phone: [facility] 08-23-2024 07:40-0400 Respiratory rate 16 /min Dr. Piedad Sun MD Work Phone: [facility] 08-23-2024 07:40-0400 SaO2% (BldA) [Mass fraction] 100 % Dr. Piedad Sun MD Work Phone: [facility] 08-23-2024 07:40-0400 Systolic blood pressure 97 mm[Hg] Dr. Piedad Sun MD Work Phone: [facility] 08-23-2024 05:52-0400 Body height 160.[address] Piedad Sun MD Work Phone: [facility] 08-23-2024 05:52-0400 Body mass index (BMI) [Ratio] 22 kg/m2 Dr. Piedad Sun MD Work Phone: [facility] 08-23-2024 05:52-0400 Body weight 56.[address] Piedad Sun MD Work Phone: [facility] 06-14-2024 08:39-0400 Body height 160.[address] Piedad Sun MD Work Phone: [facility] 06-14-2024 08:39-0400 Body mass index (BMI) [Ratio] 22.4 kg/m2 Dr. Piedad Sun MD Work Phone: [facility] 06-14-2024 08:39-0400 Body weight 57.[address] Piedad Sun MD Work Phone: [facility] 06-14-2024 08:39-0400 Diastolic blood pressure 82 mm[Hg] Dr. Piedad Sun MD Work Phone: [facility] 06-14-2024 08:39-0400 Heart rate 73 /min Dr. Piedad Sun MD Work Phone: [facility] 06-14-2024 08:39-0400 Respiratory rate 16 /min Dr. Piedad Sun MD Work Phone: [facility] 06-14-2024 08:39-0400 SaO2% (BldA) [Mass fraction] 98 % Dr. Piedad Sun MD Work Phone: [facility] 06-14-2024 08:39-0400 Systolic blood pressure 117 mm[Hg] Dr. Piedad Sun MD Work Phone: [facility] Encounters Encounter Date Encounter Type Care Provider Facility Start: 01-24-2025 ambulatory Piedad Sun Facility:[facility] Start: 01-10-2025 End: 01-10-2025 Subsequent hospital visit by physician Alida Cifuentes APRN - [facility] Work Phone: Comment on above: Unspecified lump in the right breast, upper outer quadrant Start: 01-10-2025 End: 01-10-2025 ambulatory ALIDAYULIET CIFUENTES [facility] Start: 11-24-2024 End: 11-24-[address] Rowena Arias DO -[facility] Work Phone: Start: 11-24-2024 End: 11-24-[address] Piedad Sun MD Work Phone: -[facility] Start: 10-20-2024 End: 10-20-[address] Lien Tyson MD -[facility] Work Phone: Start: 10-20-2024 End: 10-20-[address] Piedad Sun MD Work Phone: -[facility] Start: 10-18-2024 End: 10-18-2024 Patient encounter procedure Jacqueline RUIZ -[facility] Work Phone: Start: 10-18-2024 End: 10-18-[address] Piedad Sun MD Work Phone: -[facility] Start: 10-04-2024 End: 10-04-2024 Evaluation and management of inpatient Dr. Lien Tyson MD -[facility] Work Phone: Start: 10-04-2024 End: 10-04-[address] Piedad Sun MD Work Phone: -[facility] Start: 10-04-2024 Non-patient / Non-visit Jaymie Simpson PA-C -[facility] Start: 10-04-2024 Admission to [facility] Dr. Lien Tyson MD -[facility] [employer] Work Phone: Start: 10-04-2024 End: 10-04-[address] Piedad Sun MD Work Phone: -[facility] Start: 09-13-2024 End: 09-13-2024 Patient encounter procedure Rowena RUIZ -[facility] Work Phone: Start: 09-13-2024 End: 09-13-[address] Piedad Sun MD Work Phone: [facility] Work Phone: Start: 09-08-2024 Encounter for other preprocedural examination Phillip Shah [facility] Start: 08-23-2024 ambulatory Piedad Sun Facility:[facility] Start: 08-23-2024 Non-patient / Non-visit Phillip Villa nd, DO [facility] Start: 08-23-2024 End: 08-23-2024 Admission to same day surgery center Phillip Pablo DO -Endoscopy Work Phone: Start: 08-23-2024 End: 08-23-[address] Piedad Sun MD Work Phone: [facility] Work Phone: Start: 07-27-2024 Encounter for genera l adult medical examination without abnormal findings Rowena Maxwell [facility] Start: 07-05-2024 End: 07-05-2024 ambulatory [facility] Start: 07-05-2024 End: 07-05-2024 Subsequent hospital visit by physician Alida Burk CNP Work Phone: Comment on above: Unspecified lump in the right breast, upper outer quadrant Start: 06-21-2024 End: 06-21-[address] Piedad Sun MD Work Phone: [facility] Work Phone: Start: 06-21-2024 End: 06-21-2024 Patient encounter procedure Rowena RUIZ -Radiology, [facility] Work Phone: Start: 06-21-2024 End: 06-21-2024 ambulatory Rowena Maxwell Facility:[facility] Start: 06-19-2024 End: 06-19-[address] Piedad Sun MD Work Phone: [facility] Work Phone: Start: 06-19-2024 End: 06-19-2024 Patient encounter procedure Rowena RUIZ -Radiology, [facility] Work Phone: Start: 06-19-2024 End: 06-19-2024 ambulatory Rowena Maxwell Facility:[facility] Start: 06-14-2024 End: 06-14-2024 Patient encounter procedure Rowena RUIZ -[facility] Work Phone: Start: 06-14-2024 End: 06-14-2024 ambulatory Rowena Maxwell Facility:[facility] Start: 10-22-2021 End: 10-22-2021 Patient encounter procedure [facility]-Ultrasound, [facility] Procedures Date Procedure Procedure Detail Performing Clinician Start: 01-10-2025 Us breast uni real t fausto with image limited Alida Mosso [employer] APPRENTICE Work Phone: Start: 10-04-[address] Piedad Sun MD Work Phone: Start: 10-04-2024 Urnls dip stick/tabl et reagent auto microscopy Dr. Piedad Sun MD Work Phone: Start: 10-04-[address] Piedad Sun MD Work Phone: Start: 10-04-2024 Computed tomography of abdomen and pelvis with intravenous contrast Dr. Piedad Sun MD Work Phone: Start: 08-23-[address] Piedad Sun MD Work Phone: Start: 07-05-2024 Us breast uni real t fausto with image limited Alida Cifuentes [employer] APPRENTICE Work Phone: Start: 07-05-2024 Diagnostic mammograp hy computer-aided detcj bi Alida Mosso COUNSEL[employer] APPRENTICE Work Phone: Start: 06-21-2024 Plain X-ray abdomen Dr. Piedad Sun MD Work Phone: Start: 06-19-2024 Plain X-ray abdomen Dr. Piedad Sun MD Work Phone: Start: 10-22-2021 Transvaginal echography Plan of Treatment Date Care Activity Detail Author Start: 09-08-2062 RSV Immunization for Adults (1 - 1-dose 75+ series) RSV Immunization for Adults (1 - 1-dose 75+ series) [facility] Start: 09-08-2037 Zoster Vaccines (1 of 2) Zoster Vaccines (1 of 2) [facility] Start: 07-18-2025 End: 07-18-2025 Patient encounter procedure 07/18/2025 10:00 AM EDT Appointment [address] [place] [address] Alida Cifuentes, MICKY - [facility] [address] [place] [address] Start: 11-27-2024 COVID-19 Vaccine () COVID-19 Vaccine () [facility] Start: 11-27-2024 Influenza vaccination [facility] Start: 10-04-2024 Following clinical pathway protocol [facility] Start: 10-04-2024 Ambulation without limitation [facility] Start: 10-04-2024 Assessment of risk of venous thromboembolism [facility] Start: 10-04-2024 Incentive spirometry [facility] Start: 10-04-2024 Insertion of catheter into peripheral vein [facility] Start: 10-04-2024 Measuring intake and output [facility] Start: 10-04-2024 Oxygen therapy [facility] Start: 10-04-2024 Providing care according to standard [facility] Start: 10-04-2024 [facility] Start: 10-04-2024 Patient discharge [facility] Start: 10-04-2024 Laparoscopic appendectomy Laparoscopic, Appendectomy (Not Applicable) [facility] Start: 10-04-2024 Admission procedure [facility] Start: 10-04-2024 Anesthesia intraperitoneal lower abd w/laps nos ANESTH SURG LOWER ABDOMEN [facility] Start: 10-04-2024 Laparoscopic appendectomy LAPAROSCOPY APPENDECTOMY [facility] Start: 10-04-2024 Patient referral to dietitian [facility] Start: 08-23-2024 Colonoscopy w/biopsy single/multiple COLONOSCOPY AND BIOPSY [facility] Start: 08-23-2024 Patient discharge [facility] Start: 05-18-2024 DTaP/Tdap/Td Vaccines (8 - Td or Tdap) DTaP/Tdap/Td Vaccines (8 - Td or Tdap) [facility] Start: 11-28-2023 COVID-19 Vaccine () COVID-19 Vaccine () [facility] Start: 09-08-2017 Screening for malignant neoplasm of cervix [facility] Start: 09-08-2008 Screening for malignant neoplasm of cervix Pap Smear [facility] Start: 09-08-2005 Hepatitis C screening Hepatitis C Screening [facility] Start: 09-08-2000 Varicella vaccination Varicella Vaccines (1 of 2 - + 2-dose series) [facility] Start: 1999 Depression Screening Depression Screening [facility] Start: 1987 HIV screening HIV Screening [facility] Patient referral [facility] Work Phone: Immunizations Immunization Date Immunization Notes Care Provider Fa janneth 01-22-2022 influenza virus vacc ine, unspecified formulation Alida 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 2019 Private Health Insurance [id number] 2011 Unknown [id number] 2011 Unknown [id number] Unknown [id number] Unknown [id number] Unknown [id number] 462 Unknown [id number] 462 Unknown [id number]. 462 Unknown [id number]. 462 Unknown [id number]. 462 Unknown [id number] 462 Unknown [id number] 462 Unknown [id number] 462 Unknown [id number] 462 Unknown [id number] 462 Social History Date Type Detail Facility Tobacco smoking status NCIS Unknown if ever smoked [facility] Work Phone: Start: 1985 Sex Assigned At Female [facility] Start: 06-14-2024 End: 10-18-2024 Tobacco smoking status NHIS Never smoked tobacco (finding) [facility] Start: 10-27-2021 End: 06-26-2024 Sex Female (finding) [facility] Start: 07-05-2024 End: 08-18-2024 Tobacco smoking status NCIS Ex-smoker [facility] History of tobacco use Current smoker [facility] History of tobacco use Cigarette Smoker [facility] Start: 07-05-2024 Tobacco use and exposure Smokeless tobacco non-user [facility] Start: 07-05-2024 History of Social function [facility] Start: 07-05-2024 Tobacco use panel [facility] Start: 1985 Sex assigned at Not on file [facility] NEGATED: Highlighted row Not [facility] Medical Equipment Procedure Code Equipment Code Equipment Origin al Text Equipment Identifier Dates Appendectomy, laparoscopic Surgical staple loading unit, non-cutting [id number] FDA Start: 10-04-2024 Goals Date Patient Goal Desired Activity /State Functional Status Date Assessment Result Facility 10-04-2024 Functional status Ambulates [facility] Work Phone: Mental Status Date Assessment Result Facility 10-04-2024 Cognitive function Level Of Cons ciousness Awake;Alert;Appropriate;Follow s Commands [facility] Work Phone: 10-04-2024 Cognitive function Voice/Name [facility] Work Phone: 08-23-2024 Cognitive function Voice/Name [facility] Work Phone: 08-23-2024 Cognitive function Patient Orien tation Person;Place;Time [facility] Work Phone: Clinical Notes 09-08-2018 to 10-04-2024 Note Date & Type Note Facility 10-04-2024 Consult note [facility] 10-04-2024 Consult note Note Date/Time October 04, 2024 8:42pm [facility] Medical Records Department [address] [place] [address] Anesthesia Postop Eval II 10/04/24 1743 MR#: [id number] Acct: [id number] Name: YAQUELIN HARTLEY Rep #:[id number] : 1985 39 From: Lyndon Dawn PCP: Dr. Piedad Sun MD Status:ADM I NO Y Race: C Location: [place] [address] Anesthesia Postop Eval I Sum Postop Eval Completion status Anesthesia document: Postop Eval 1 completed: Yes Anesthesia Postop Eval I Summary Anesthesia Postop Eval I Summary: Anesthesia Postop Eval I: Assessment Summary Airway patent Yes 10/04/24 16:31 SHAYY Spontaneous unlabored Yes 10/04/24 16:31 TRIP FOLLOWERZORAN respirations Mental status Awake,Calm 10/04/24 16:31 TRIP FOLLOWER.MDOT nausea No 10/04/24 16:31 TRIP FOLLOWER.MDOT Vomiting No 10/04/24 16:31 TRIP FOLLOWER.MDOT Anesthesia Postop Eval I: Fluid Summary Crystalloid volume administer 500 10/04/24 16:31 TRIP FOLLOWER.MDOT (ml) Colloids volume administered ( ml) Blood Product volume administered (ml) Total IV fluid infused 500 10/04/24 16:31 TRIP FOLLOWER.MDOT Anesthesia Postop Eval I: Summary Notes Anesthesia Complication No 10/04/24 16:31 TRIP FOLLOWER.MDOT Anesthesia Complication Comment: Post-operative progress note Anesthesia: Postop Eval II Evaluation Mental status: Awake and Calm Pain Level: 1 nausea: No Vomiting: No Complications Anesthesia Complication: No 10/04/24 0703 <Electronically signed by Lyndon Vitale MD> Date _ Lyndon Vitale MD [facility] Signature: Date CC: ~ Signed [facility] Work Phone: 1(350) 975-221207-09-2025 Consult note Author [facility] Note Date/Time October 04, 2024 4:31p m [facility] Medical Records Department [address] [place] [address] Anesthesia Postop Eval I 10/04/24 1630 MR#: [id number] Acct: [id number] Name: YAQUELIN HARTLEY Rep #:[id number] : 1985 39 From: Sergio ARORA PCP: Dr. Piedad Sun MD Status:ADM I NO Y Race: C Location: [place] [address] - Anesthesia: Postop Eval I Current Vital Signs Temperature: 97 F Pulse Rate: 81 Blood Pressure: 114/74 Respiratory Rate: 16 Pulse Ox: 98 Oxygen Delivery Method: Room Air Assessment Airway patent: Yes Spontaneous unlabored respirations: Yes Mental status: Awake and Calm nausea: No Vomiting: No Anesthesia Complication: No Fluid Hydration Crystalloid volume administer (ml): 500 Total IV fluid infused: 500 Progress Note Anesthesia document: Postop Eval 1 completed: Yes 10/04/24 1631 <Electronically signed by Sergio Diego CRNA> Date _ Sergio Diego CRNA Cosigner Signature: Date CC: ~ Signed [facility] Work Phone: 1(527) 616-347607-09-2025 Discharge summary Author Lien [facility] Note Date/Time October 04, 2024 4:29p [facility] Medical Records Department [address] [place] [address] Instructions for Home/Discharge Instructions 10/04/24 1626 MR#: [id number] Acct: [id number] Name: YAQUELIN HARTLEY Rep #:[id number] : 1985 39 From: Lien Tyson MD PCP: Dr. Piedad Sun MD Status:ADM I NO Discharge Instructions Diet Discharge Diet: Light diet - advance as tolerated Activity Discharge Activity: May Not Drive (while taking narcotic pain medications.) May shower in (days): 1 Lifting Restrictions: no lifting >20 lbs x 2 wks, no strenuous exercise for 4 wks Dressing / Incision Call your doctor if your incision/area has: Continuous Slow Oozing, Sudden Increased Bleeding, Increased Pain/ Swelling, Increased Redness, Foul Smelling Discharge and Swelling at the incision site Call your doctor if you observe: Fever of 101 or Higher Remove Dressing in: 2 days Cleanse incision/area with: Soap & Water Additional Dressing/Incision Instructions:: Steri-Strips will fall off in 7 to 10 days, if they do not fall off okay to remove after 10 days. Follow Up Care Please Follow Up With: Lien Tyson MD When: Call the office for a follow-up appointment 2 weeks; [facility] 5 PM [phone] with any concerns. Test Results: Test results from this visit will be discussed in further detail at your follow- up appointment, if applicable. Discharge Plan Admission Admit Date/Time: 10/04/24 14:14 Attending Provider: Lien Tyson Primary Care Provider: Piedad Sun Discharge Orders/Prescriptions Prescriptions: New oxycodone 5 mg capsule 5 mg PO Q6H PRN (Reason: pain) 3 Days Qty: 10 0RF Continued omeprazole 20 mg capsule,delayed release(DR/EC) 20 mg PO QDAY Qty: 90 1RF hyoscyamine sulfate 0.125 mg tablet,disintegrating 0.125 mg PO BID-QID PRN (Reason: abdominal cramping, diarrhea) Qty: 60 1RF Referrals / Follow Up: Piedad Sun MD [Primary Care Provider] - Disposition Disposition (needs filled in before D/C Order can be placed): Home, Self Care 10/04/24 1629<Electronically signed by Lien Tyson MD>Lien Tyson MD CC: Dr. Piedad Sun MD ~ Signed [facility] Work Phone: 1(883) 500-956507-09-2025 Discharge summary Author Louie Song [facility] Note Date/Time October 04, 2024 4:02p [facility] Medical Records Department [address] [place] [address] Emergency Department Summary 10/04/24 MR#: [id number] Acct: [id number] Name: YAQUELIN HARTLEY Rep #:[id number] : 1985 39 From: Louie Cleaning PCP: Dr. Piedad Sun MD Status:ADM I NO Location: [place] [id number] HPI HPI - GI History of Present Illness Chief Complaint: Abd Pain Informant: patient Abdominal Pain/Flank Pain Onset: Today Context: Sudden Onset Timing: Continuous Quality: Aching and Sharp Location: LLQ and - (Left periumbilical area) Worsened by: Movement (Sitting upright and ambulation) Relieved by: Remaining Still Nausea/Vomiting/Emesis GI Symptom: Positive for Nausea and Vomiting Diarrhea/Melena/Hematochezia GI Symptom: Positive for Diarrhea; Negative for Melena or Hematochezia Associated Symptoms Associated Symptoms: Negative for Dysuria, Frequency or Hematuria LMP: Current Narrative Narrative: Patient presents with abdominal pain that began today. Patient states it woke her up from sleep early this morning. Patient states that it has been constant. Patient describes it as aching but sharp at times. Patient states it is over the left periumbilical area and left lower quadrant. Patient states it is worsewith certain movements. Patient states it is worse with ambulation and with sitting upright. Patient states it is better when she is able to remain still and lay flat. Patient admits to some nausea and vomiting. Patient admits to some diarrhea. Patient denies any hematemesis or coffee-ground emesis. Patientdenies any melena or hematochezia. Patient is currently on her menstrual period. Patient denies any urinary complaints. PFSH PFSH Medical History Wears glasses Wears contact lenses Migraine headache History of IBS Gastric reflux Former smoker Home Medications ?Medication ?Instructions ?Recorded ?Last Taken ?Type omeprazole 20 mg capsule,delayed 20 mg PO QDAY GERD #9 0 caps 06/14/24 08/22/24 Rx release hyoscyamine sulfate 0.125 mg 0.125 mg PO BID-QID PRN a bdominal 09/13/24 Unknown Rx disintegrating tablet cramping, diarrhea #60 tabs Allergy/AdvReac Type Severity Reaction Status Date / [...] use frequency: 3-4 times per week ROS ROS ED Constitutional Constitutional ED: Reports chills and subjective; Denies fever(s) Eyes Eyes: Denies blurry vision or change in vision ENT ENT ED: Denies rhinorrhea or sore throat Cardiovascular Cardiovascular: Denies chest pain or palpitations Respiratory/Chest Respiratory/Chest: Denies cough or dyspnea Gastrointestinal Gastrointestinal: Reports abdominal pain, diarrhea, nausea and vomiting; Denies melena Genitourinary Genitourinary ED: Denies dysuria or hematuria Musculoskeletal Musculoskeletal: Reports back pain; Denies neck pain Integumentary Denies abscess or rash Neurologic Neurologic: Denies headache(s) or weakness Allergic/Immunologic Allergic/Immunologic ED: Denies mouth swelling or urticaria EXAM Physical Exam Const Vital Signs: 10/04/24 10:11 10/04/24 11:11 10/04/24 12:00 Temperature 98.6 F Temperature Source Oral Pulse Rate 71 70 85 Respiratory Rate 18 14 14 Blood Pressure 115/75 115/68 124/73 H Blood Pressure Mean 88 83 90 Pulse Ox 100 100 100 Oxygen Delivery Method Room Air Room Air Room Air 10/04/24 13:00 10/04/24 13:55 Temperature 98.6 F Temperature Source Pulse Rate 70 70 Respiratory Rate 14 14 Blood Pressure 123/72 H 123/72 H Blood Pressure Mean 89 89 Pulse Ox 99 99 Oxygen Delivery Method Room Air Positive well nourished and well developed Constitutional Narrative: BMI is 22.1. General Appearance ED: well developed and NAD HEENT Reports moist mucous membranes normocephalic and atraumatic Neck supple and no JVD Resp normal respiratory effort and clear to auscultation bilaterally Cardio regular rate and regular rhythm GI non-distended Palpation: soft and tender LLQ, periumbilical and suprapubic; Negative for guarding or rebound tenderness present Neuro CN's II-XII intact bilaterally, moves all extremities and no sensory deficits noted Sensorium / Orientation: alert Motor Exam: strength 5/5 throughout Psych mental status grossly normal MDM MDM MDM Narrative Medical decision making narrative: Differential diagnosis includes ureteral calculus, pyelonephritis, urinary tractinfection, diverticulitis, pancreatitis, ectopic , ovarian cyst, and constipation. CT scan of the abdomen and pelvis will be obtained to assess for ureteral calculus, diverticulitis, pancreatitis, bowel obstruction, perforation. CBC will be obtained to assess for leukocytosis and anemia. Comprehensive metabolic profile will be obtained to assess for hepatic function, renal function, and electrolyte abnormality. Lipase will be obtained to assess for pancreatitis. Serum hCG will be obtained to assess for . Urinalysis will be obtained to assess for urinary tract infection and hematuria. History & Record Review Additional record(s) reviewed:: Prior outpatient record Lab Data Attestation: I reviewed the patient's lab results. Lab results narrative: CBC was reviewed. There is a leukocytosis of 15.5. The remainder is within normal limits. Comprehensive metabolic profile was reviewed and was essentiallywithin normal limits. Lipase was reviewed and was normal at 48. Serum hCG was reviewed and was negative. Urinalysis was reviewed. There is no evidence of urinary tract infection or hematuria. Labs: Laboratory Results - last 24 hr 10/04/24 10/04/24 11:10 11:20 WBC 15.5 H RBC 4.73 Hgb 13.4 Hct 39.7 MCV 83.9 MCH 28.3 MCHC 33.8 RDW Std Deviation 36.1 RDW Coeff of Alcira 11.9 Plt Count 264 MPV 10.3 Immature Gran % (Auto) 0.700 Neut % (Auto) 88.2 H Lymph % (Auto) 5.2 L Beadle % (Auto) 5.5 Eos % (Auto) 0.1 Baso % (Auto) 0.3 Absolute Neuts (auto) 13.6 H Absolute Lymphs (auto) 0.81 L Nucleated RBC % 0 Sodium 138 Potassium 3.6 Chloride 102 Carbon Dioxide 20.8 L Anion Gap 15 BUN 11 Creatinine 0.74 Estim Creat Clear Calc 86.10 Est GFR (MDRD) Non-Af 106 BUN/Creatinine Ratio 14.7 Glucose 99 Calcium 9.2 Total Bilirubin 0.64 AST 19 ALT 12 Alkaline Phosphatase 43 Total Protein 7.7 Albumin 4.7 Globulin 3.1 Albumin/Globulin Ratio 1.5 Lipase 48 Serum , Qual NEGATIVE Urine Color Yellow Urine Clarity Clear Urine pH 6.0 Ur Specific [place] 1.010 Urine Protein 15 H Urine Glucose (UA) Normal Urine Ketones 50 H Urine Occult Blood 50 H Urine Nitrite Negative Urine Bilirubin Negative Urine Urobilinogen Normal Ur Leukocyte Esterase Negative Urine RBC 0-5 SEEN Urine WBC 0 SEEN Ur Squamous Epith Cells 0-5 SEEN Urine Bacteria 0 SEEN Urine Mucus 0 SEEN Radiography Diagnostic Testing: Clinical Impression(s) from Imaging Studies Abdomen/Pelvis CT 10/04/24 10:59 IMPRESSION: 1. The appendix measures up to 8 mm in diameter with subtle fat stranding. This could be evolving or resolving acute appendicitis. No pneumoperitoneum or abscess. 2. Hepatomegaly with fatty infiltration. 3. No obstructive uropathy. 4. Umbilical hernia containing fat. 5. Fecal retention in the colon consistent with constipation. Reading Location: [facility]S [facility]EDS AT [facility] CT scan of the abdomen and pelvis was obtained. The appendix measures 8 mm in diameter with subtle fat stranding. There is an umbilical hernia containing fat. There is fecal retention in the colon consistent with constipation. Thereis no ureteral calculus or obstructive uropathy. This was interpreted by the radiologist and was also independently reviewed by myself. Management Discussion w/another healthcare provider: [employer] (Dr. Tyson) Treatment and Re-Evaluation :: Patient was given IV fluids, morphine, and Zofran. Patient was advised of her findings. Patient was given a dose of Zosyn. Case was discussed with Dr. Tyson. She will likely take patient to the operating room later today. Patient and understand and are agreeable with the plan. All questions were answered. Discharge Plan Dx/Rx/DC Orders Clinical Impression: Acute appendicitis, Abdominal pain Disposition Disposition: Acute Care Hospital [facility] Discharge Date/Time: 10/04/24 13:56 What to do if you have Problems For any increased pain, shortness of breath, bleeding, nausea or vomiting, chestpain, or any unexpected problems, contact your Primary Care Provider. Call [facility] ([phone]) or report to the closest Emergency Room. Call 911 if necessary. 10/04/24 1602 <Electronically signed by Louie Song DO> Cosigner Signature (if applicable): CC: Dr. Piedad Sun MD ~ Signed [facility] Work Phone: 1(939) 434-199307-09-2025 Consult note Author Lyndon Vitale [facility] Note Date/Time October 04, 2024 2:37p [facility] Medical Records Department [address] [place] [address] Pre-Anesthesia Evaluation 10/04/24 1422 MR#: [id number] Acct: [id number] Name: YAQUELIN HARTLEY Rep #:[id number] : 1985 39 From: Lyndon Dawn PCP: Dr. Piedad Sun MD Status:REG S DC Y Race: C Location: [facility] ASA Classification* ASA Classification ASA Classification: 1 [...] changes. Performed airway and anesthesia risk assessments. Procedural Plan Add'l anesthesia plan details: Had 2 small cookies at noon. The surgeon is calling this an emergency. I discussed in detail with the patient and her the risk of aspiration. Anesthesia Type Anesthesia Type: General History Source History Obtained from:: Patient and Chart Anesthesia Focused Assessment* Temperature: 98.6 F Pulse Rate: 70 Blood Pressure: 123/72 Respiratory Rate: 14 Pulse Ox: 99 Oxygen Delivery Method: Room Air Airway Assessment Mouth opens: >3 cm Mallampati Score: I Teeth Condition: Intact Neck Range of motion (ROM): Full ROM Labs Anesthesia Preop lab: CBC WBC 15.5 K/mm3 (4.4-11.0) H 10/04/24 11:10 5 RBC 4.73 M/mm3 (4.2-5.4) 10/04/24 11:10 10/04/24 Hgb 13.4 g/dL (12.0-15.0) 10/04/24 11:10 10/04/24 Hct 39.7 % (37-47) 10/04/24 11:10 10/04/24 Plt Count 264 K/mm3 (150-450) 10/04/24 11:10 10/04/24 CHEMISTRY Potassium 3.6 mmol/L (3.3-5.1) 10/04/24 11:10 10/04/24 Sodium 138 mmol/L (133-145) 10/04/24 11:10 10/04/24 Phosphorus 3.7 mg/dL (2.5-4.9) 11/25/12 07:50 11/25/12 BUN 11 mg/dL (4-19) 10/04/24 11:10 10/04/24 Creatinine 0.74 mg/dL (0.70-1.20) 10/04/24 11:10 10/04/24 Glucose 99 mg/dL (70-99) 10/04/24 11:10 10/04/24 COAG Urine Test Negative Negative 08/23/24 05:38 08/23/24 Pre-Assessment Diagnosis/Proposed Procedure Planned Operative Procedure(s): Laparoscopic appendectomy Anesthesia History 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 When Was Last Pacemaker Check QUESTION #4 FULL TEXT: You/Your Family Experience fever (hyperthermia) with Anesthesia Last Oral Intake Last Oral intake: Last Oral Intake NPO since Meds taken in AM with sips of water? Meds patient instructed to take am of surgery PONV PONV - sofa inspector: PONV - sofa inspector Female HX of Motion Sickness HX of N/V After Surgery Non-Smoker Duration of Surgery greater than 60 minutes Number of Risk Factors PONV Score Height & Weight Height & Weight: Anesthesia: Height & Weight Height 5 ft 3 in 10/04/24 10:11 Weight: 56.699 kg 10/04/24 10:11 Body Mass Index (BMI) 22.1 10/04/24 10:11 Respiratory Assessment Respiratory Assessment - sofa inspector: Respiratory Tract Infection Hx - sofa inspector Hx Respiratory Tract Infection No 08/18/24 11:49 STOP Sleep Apnea STOP Sleep Apnea - sofa inspector: STOP Sleep Apnea - sofa inspector Hx Hypertension No 08/18/24 11:49 Hx Sleep Apnea No 08/18/24 11:49 CPAP BIPAP Do you snore loudly (louder than talking or can be heard Do you often feel tired/ fatigued/ sleepy during daytime? Has anyone observed you stop breathing during sleep? STOP Results QUESTION #5 FULL TEXT : Do you snore loudly (louder than talking or can be heard through closed doors)? Tobacco Use History Tobacco Use History - sofa inspector: Tobacco Use History - sofa inspector Tobacco Use Smoking Status Never smoker 10/04/24 10:23 Hx Tobacco Use No 08/18/24 11:49 Years Smoking Packs Smoked per Day Smoking Cessation Date was within the last 15 years Hx Smoking Cessation Date Hx Smoking Cessation No 10/04/24 10:23 Counseling Hematologic Medial History Hematologic Hx - sofa inspector: Hematologic Medical Hx - patient monitor Hx of Blood Transfusion Hx of Transfusion in last 3 Months Date of Last Transfusion (if within last 3 months) Ever experience any problems with transfusion(s)? Specify any problems Hx of Preganancy in last 3 Months Nurse Filling Out Transfusion & Questions: Date: Time: Patient unable to answer at this time (ie. confused, unrespo /Reproduction History /Reproductive History - sofa inspector: /Reproductive Hx- sofa inspector Hx Now Gestational Age (in weeks): EDC: Hx Hx Para Hx Section SAB No 10/04/24 10:11 PFSH Medical History Wears glasses Wears contact lenses Migraine headache History of IBS Gastric reflux Former smoker Home Medications ?Medication ?Instructions ?Recorded ?Last Taken ?Type omeprazole 20 mg capsule,delayed 20 mg PO QDAY GERD #9 0 caps 06/14/24 08/22/24 Rx release hyoscyamine sulfate 0.125 mg 0.125 mg PO BID-QID PRN a bdominal 09/13/24 Unknown Rx disintegrating tablet cramping, diarrhea #60 tabs Allergy/AdvReac Type Severity Reaction Status Date / [...] and no additional complaints, except as documented. 10/04/24 1437 <Electronically signed by Lyndon Vitale MD> Date _ Lyndon Vitale MD Cosigner Signature: Date CC: ~ Signed [facility] Work Phone: [phone]) 309-404907-09-2025 Consult note [facility] Medical Records Department [address] [facility] [place] [place] [address] Anesthesia Postop Eval I 10/04/24 1630 MR#: [id number] Acct: [id number] Name: YAQUELIN HARTLEY Rep #:[id number] : 1985 39 From: Sergio ARORA PCP: Dr. Piedad Sun MD Status:ADM I NO Y Race: C Location: [place] [address] Anesthesia: Postop Eval I Current Vital Signs Temperature: 97 F Pulse Rate: 81 Blood Pressure: 114/74 Respiratory Rate: 16 Pulse Ox: 98 Oxygen Delivery Method: Room Air Assessment Airway patent: Yes Spontaneous unlabored respirations: Yes Mental status: Awake and Calm nausea: No Vomiting: No Anesthesia Complication: No Fluid Hydration Crystalloid volume administer (ml): 500 Total IV fluid infused: 500 Progress Note Anesthesia document: Postop Eval 1 completed: Yes 10/04/24 1631 TRIP FOLLOWER> Date _ Sergio Diego TRIP FOLLOWER Cosigner Signature: Date CC: ~ Signed [facility]07-09-2025 Discharge summary [facility] Medical Records Department [address] [place] [address] Instructions for Home/Discharge Instructions 10/04/24 1626 MR#: [id number] Acct: [id number] Name: YAQUELIN HARTLEY Rep #:[id number] : 1985 39 From: Lien Tyson MD PCP: Dr. Piedad Sun MD Status:ADM I NO Discharge Instructions Diet Discharge Diet: Light diet - advance as tolerated Activity Discharge Activity: May Not Drive (while taking narcotic pain medications.) May shower in (days): 1 Lifting Restrictions: no lifting >20 lbs x 2 wks, no strenuous exercise for 4 wks Dressing / Incision Call your doctor if your incision/area has: Continuous Slow Oozing, Sudden Increased Bleeding, Increased Pain/ Swelling, Increased Redness, Foul Smelling Discharge and Swelling at the incision site Call your doctor if you observe: Fever of 101 or Higher Remove Dressing in: 2 days Cleanse incision/area with: Soap & Water Additional Dressing/Incision Instructions:: Steri-Strips will fall off in 7 to 10 days, if they do not fall off okay to remove after 10 days. Follow Up Care Please Follow Up With: Lien Tyson MD When: Call the office for a follow-up appointment 2 weeks; after 5 PM and on call [phone] with any concerns. Test Results: Test results from this visit will be discussed in further detail at your follow- up appointment, if applicable. Discharge Plan Admission Admit Date/Time: 10/04/24 14:14 Attending Provider: Lien Tyson Primary Care Provider: Piedad Sun Discharge Orders/Prescriptions Prescriptions: New oxycodone 5 mg capsule 5 mg PO Q6H PRN (Reason: pain) 3 Days Qty: 10 0RF Continued omeprazole 20 mg capsule,delayed release(DR/EC) 20 mg PO QDAY Qty: 90 1RF hyoscyamine sulfate 0.125 mg tablet,disintegrating 0.125 mg PO BID-QID PRN (Reason: abdominal cramping, diarrhea) Qty: 60 1RF Referrals / Follow Up: Piedad Sun MD [Primary Care Provider] - Disposition Disposition (needs filled in before D/C Order can be placed): Home, Self Care 10/04/24 1629Lien Tyson MD CC: Dr. Piedad Sun MD ~ Signed [facility]07-09-2025 Procedure note [facility] Medical Records Department [address] [place] [address] Operative Report 10/04/24 1624 MR#: [id number] Acct: [id number] Name: YAQUELIN HARTLEY Rep #:[id number] : 1985 39 From: Lien Tyson MD PCP: Dr. 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 Type of Anesthesia: General/Supplemental RN Documented Start/Stop Times: Operation Date: 10/04/24 15:00 Case Time Into Pre-Op 10/04/24 14:42 Out of Pre-Op 10/04/24 15:37 Anesthesia Start 10/04/24 15:39 Into Room 10/04/24 15:39 Procedure Start 10/04/24 15:54 Procedure End 10/04/24 16:21 Procedure Start Time: 15:54 Procedure Stop Time: 16:21 Select all DRAINS/GRAFTS/IMPLANTS that apply: None Special Medications: Zosyn 3.375 g IV x 1 given in the ER for acute appendicitis Estimated Blood Loss: < 10 cc Specimen collected: Yes Description of specimen(s) removed: Appendix Description of surgery: Indications: 36-year-old female presented to the ER with new right lower quadrant pain this morning. On workup she was found to have acute appendicitis on CT and a leukocytosis of 15.5. Patient was started on antibiotics in the ER for acute appendicitis-Zosyn IV in the ER Description of the procedure: The patient was placed on operating table in supine position. Generalanesthesia was induced. A timeout was completed verifying correct patient, procedure, position and special equipment prior to beginning procedure. Abdomen was prepped and draped in usual sterile fashion. Incision was made in the natural skin line below the umbilicus with a 15 blade scalpel. The fascia was elevated and incised. Entry into the peritoneum was confirmed visually and no bowel was noted inthe vicinity of the incision. The Jernigan trocar was placed under direct vision. Abdomen insufflated with a pressure of 12-15 mmHg. Patient tolerated insertion well. The scope was inserted and the abdomen inspected. No injuries from initial trocar placement were noted. Minimal amount of fluid was seen in the right lower quadrant. An direct visualization 2 -5 mm trocars were placed one above the symphysis pubis and below the hairline and one in the left lower quadrant lateral to the rectus muscle. Care is taken to avoid injury to the bladder and inferior epigastric vessels. The table was placed in Trendelenburg position with the right side elevated. The appendix was grasped with atraumatic grasper and elevated. It was noted to be inflamed. A window was developed in the mesoappendix at the point between the base of the appendix and the cecum. An endoscopic 45 mm linear cutting stapler blue load was then used to divide andstaple the base of the appendix. Enseal was used to divide the mesoappendix. The appendix was withdrawn into the Jernigan trocar after being placed endoscopically retrieval bag. Appendix was sent to pathology. The appendiceal stump was then irrigated and hemostasis was assured. Fluid was suctioned no other pathology was identified. Secondary trochars were removed under direct visualization. No bleeding was noted trocar sites. Thelaparoscope withdrawn and the umbilical trocar removed. The abdomen was allowed to collapse. Local anesthesia of 27 mL of 0.25% Marcaine was used at the incision sites. The umbilical trocar site was closed with the [id number] 0 Vicryl suture. The skin was closed using sutures of 4-0 Monocryl and Steri-Strips. The patient was extubated. The patient tolerated the procedure well and was taken to the postanesthesia care unit in satisfactory condition. Surgical Findings: See operative report Complications Complications: No 10/04/24 1626 Cosigner Signature (if applicable): CC: Dr. Piedad Sun MD; Dr. Lien Tyson MD~ Signed [facility]07-09-2025 History and physical note Author Jaymie Simpson [facility] Note Date/Time October 04, 2024 2:13p m [facility] Medical Records Department [address] [place] [address] History & Physical Exam 10/04/24 1356 MR#: [id number] Acct: [id number] Name: YAQUELIN HARTLEY Rep #:[id number] : 1985 39 From: Jaymie FISHER PA-C PCP: Dr. Piedad Sun MD Status:REG S DC Location: [facility]- HPI - General General Date of Admission: 10/04/24 Date of Service: 10/04/24 Chief Complaint: Periumbilical pain HPI Narrative YAQUELIN HARTLEY, is a 39 F who presents with 1 day history of worsening periumbilicalpain. She notes at 0500 AM is when the pain presented. She stated the pain became worse and she contacted her at 0930 AM to take her to the ED. Shenotes associated nausea and vomiting. She notes lack of appetite. She recently had a colonoscopy with Dr. Shah for irritable bowel disease. Findings include a tubular adenoma at the hepatic flexure. Patient takes omeprazole. She denies any previous abdominal surgeries. She denies previous cardiac and pulmonary issues. CT scan of the ab/pel demonstrated acute appendicitis. WBC 15.5 PFSH Medical History Wears glasses Wears contact lenses Migraine headache History of IBS Gastric reflux Former smoker Home Medications ?Medication ?Instructions ?Recorded ?Last Taken ?Type omeprazole 20 mg capsule,delayed 20 mg PO QDAY GERD #9 0 caps 06/14/24 08/22/24 Rx release hyoscyamine sulfate 0.125 mg 0.125 mg PO BID-QID PRN a bdominal 09/13/24 Unknown Rx disintegrating tablet cramping, diarrhea #60 tabs Allergy/AdvReac Type Severity Reaction Status Date / [...] 3-4 times per week ROS Constitutional Constitutional: Reports systems reviewed and no addt'l complaints, except as documented Eyes Eyes: Reports systems reviewed and no addt'l complaints, except as documented ENT HEENT: Reports systems reviewed and no addt'l complaints, except as documented Cardiovascular Cardiovascular: Reports systems reviewed and no addt'l complaints, except as documented Respiratory/Chest Respiratory/Chest: Reports systems reviewed and no addt'l complaints, except as documented Gastrointestinal Gastrointestinal: Reports systems reviewed and no addt'l complaints, except as documented Genitourinary Genitourinary: Reports systems reviewed and no addt'l complaints, except as documented Musculoskeletal Musculoskeletal: Reports systems reviewed and no addt'l complaints, except as documented Integumentary Integumentary: Reports systems reviewed and no addt'l complaints, except as documented Neurologic Neurologic: Reports systems reviewed and no addt'l complaints, except as documented Psychiatric Psychiatric: Reports systems reviewed and no addt'l complaints, except as documented Endocrine Endocrinology: Reports systems reviewed and no addt'l complaints, except as documented Hematologic/Lymphatic Hematologic/Lymphatic: Reports systems reviewed and no addt'l complaints, exceptas documented Allergic/Immunologic Allergic/Immunologic: Reports systems reviewed and no addt'l complaints, except as documented Vital Signs Vital Signs Vital Signs: 10/04/24 10:11 10/04/24 11:11 10/04/24 12:00 Temperature 98.6 F Temperature Source Oral Pulse Rate 71 70 85 Respiratory Rate 18 14 14 Blood Pressure 115/75 115/68 124/73 H Blood Pressure Mean 88 83 90 Pulse Ox 100 100 100 Oxygen Delivery Method Room Air Room Air Room Air 10/04/24 13:00 10/04/24 13:55 Temperature 98.6 F Temperature Source Pulse Rate 70 70 Respiratory Rate 14 14 Blood Pressure 123/72 H 123/72 H Blood Pressure Mean 89 89 Pulse Ox 99 99 Oxygen Delivery Method Room Air Weight Weight: 125 lb Body Mass Index (BMI) 22.1 Physical Exam Const alert, oriented x3 and no apparent distress HEENT normocephalic and head/scalp atraumatic Eyes PERRL Neck full ROM Lymph Lymphatic: no lymphadenopathy noted Chest inspection of chest normal Resp normal respiratory effort and clear to auscultation bilaterally Cardio regular rate and regular rhythm GI GI Narrative: Abdomen- soft, slightly distended, pain to palpation in the periumbilical and suprapubic region no CVA tenderness Back/Spine no CVA tenderness Extremity normal to inspection Skin no rashes or lesions noted Neuro no focal motor deficits and no sensory deficits noted Psych mental status grossly normal Results Lab / Micro Data 10/04/24 11:10 10/04/24 11:10 Labs: Laboratory Results - last 24 hr 10/04/24 11:10: WBC 15.5 H, RBC 4.73, Hgb 13.4, Hct 39.7, MCV 83.9, MCH 28.3, MCHC 33.8, RDW Std Deviation 36.1, RDW Coeff of Alcira 11.9, Plt Count 264, MPV 10.3, Immature Gran % (Auto) 0.700, Neut % (Auto) 88.2 H, Lymph % (Auto) 5.2 L, Beadle % (Auto) 5.5, Eos % (Auto) 0.1, Baso % (Auto) 0.3, Absolute Neuts (auto) 13.6 H, Absolute Lymphs (auto) 0.81 L, Nucleated RBC % 0, Sodium 138, Potassium 3.6, Chloride 102, Carbon Dioxide 20.8 L, Anion Gap 15, BUN 11, Creatinine 0.74,Estim Creat Clear Calc 86.10, Est GFR (MDRD) Non-Af 106, BUN/Creatinine Ratio 14.7, Glucose 99, Calcium 9.2, Total Bilirubin 0.64, AST 19, ALT 12, Alkaline Phosphatase 43, Total Protein 7.7, Albumin 4.7, Globulin 3.1, Albumin/Globulin Ratio 1.5, Lipase 48, Serum , Qual NEGATIVE 10/04/24 11:20: Urine Color Yellow, Urine Clarity Clear, Urine pH 6.0, Ur Specific [place] 1.010, Urine Protein 15 H, Urine Glucose (UA) Normal, Urine Ketones 50 H, Urine Occult Blood 50 H, Urine Nitrite Negative, Urine Bilirubin Negative, Urine Urobilinogen Normal, Ur Leukocyte Esterase Negative, Urine RBC 0-5 SEEN, Urine WBC 0 SEEN, Ur Squamous Epith Cells 0-5 SEEN, Urine Bacteria 0 SEEN, Urine Mucus 0 SEEN Imaging Radiology Impression Abdomen/Pelvis CT 10/04/24 10:59 IMPRESSION: 1. The appendix measures up to 8 mm in diameter with subtle fat stranding. This could be evolving or resolving acute appendicitis. No pneumoperitoneum or abscess. 2. Hepatomegaly with fatty infiltration. 3. No obstructive uropathy. 4. Umbilical hernia containing fat. 5. Fecal retention in the colon consistent with constipation. Reading Location: [facility]S [facility] BEDS AT [facility] Assessment & Plan Assessment/Plan (1) Acute appendicitis: QUALIFIERS: Acute appendicitis type: with localized peritonitis Appendicitis gangrene presence: without gangrene Appendicitis perforation presence: without perforation Appendicitis abscess presence: without abscess Qualified Code(s): K35.30 - Acute appendicitis with localized peritonitis, without perforation or gangrene PLAN: I am seeing this patient in conjunction with Dr. Tyson. She will independently evaluate this patient. Patient presented with a 1 day history of periumbilical pain that radiated to the suprapubic region. She had a CT scan of the ab/pel which demonstrated acute appendicitis with associated leukocytosis with left shift. Plan will be for Dr. Tyson to perform a laparoscopic appendectomy. Procedure details, risks and benefits have been explained. Patientand her have had the opportunity to ask and have questions answered. Patient verbally understands and agrees with the plan. Plan will be to admit thepatient for observation following the procedure. Thank you for allowing us to participate in this patient's care. Charges/Coding Visit Charges OBSV E&M: 50565 Observ/hosp same date L2 (pre-op) 10/04/24 1413 <Electronically signed by Jaymie FISHER PA-C> Cosigner Signature (if applicable): CC: CAROL Simpson; Dr. Piedad Sun MD~ Signed [facility] Work Phone: [phone] 391-745707-09-2025 Discharge summary [facility] Medical Records Department [address] [place] [address] Emergency Department Summary 10/04/24 MR#: [id number] Acct: [id number] Name: YAQUELIN HARTLEY Rep #:[id number] : 1985 39 From: Louie Cleaning PCP: Dr. Piedad Sun MD Status:ADM I NO Location: [place] [address] HPI HPI - GI History of Present Illness Chief Complaint: Abd Pain Informant: patient Abdominal Pain/Flank Pain Onset: Today Context: Sudden Onset Timing: Continuous Quality: Aching and Sharp Location: LLQ and - (Left periumbilical area) Worsened by: Movement (Sitting upright and ambulation) Relieved by: Remaining Still Nausea/Vomiting/Emesis GI Symptom: Positive for Nausea and Vomiting Diarrhea/Melena/Hematochezia GI Symptom: Positive for Diarrhea; Negative for Melena or Hematochezia Associated Symptoms Associated Symptoms: Negative for Dysuria, Frequency or Hematuria LMP: Current Narrative Narrative: Patient presents with abdominal pain that began today. Patient states it woke her up from sleep early this morning. Patient states that it has been constant. Patient describes it as aching but sharp at times. Patient states it is over the left periumbilical area and left lower quadrant. Patient states it is worsewith certain movements. Patient states it is worse with ambulation and with sitting upright. Patient states it is better when she is able to remain still and lay flat. Patient admits tosome nausea and vomiting. Patient admits to some diarrhea. Patient denies any hematemesis or coffee-ground emesis. Patientdenies any melena or hematochezia. Patient is currently on her menstrual period. Patient denies any urinary complaints. PFSH PFS Medical History Wears glasses Wears contact lenses Migraine headache History of IBS Gastric reflux Former smoker Home Medications ?Medication ?Instructions ?Recorded ?Last Taken ?Type omeprazole 20 mg capsule,delayed 20 mg PO QDAY GERD #9 0 caps 06/14/24 08/22/24 Rx release hyoscyamine sulfate 0.125 mg 0.125 mg PO BID-QID PRN a bdominal 09/13/24 Unknown Rx disintegrating tablet cramping, diarrhea #60 tabs Allergy/AdvReac Type Severity Reaction Status Date / [...] use frequency: 3-4 times per week ROS ROS ED Constitutional Constitutional ED: Reports chills and subjective; Denies fever(s) Eyes Eyes: Denies blurry vision or change in vision ENT ENT ED: Denies rhinorrhea or sore throat Cardiovascular Cardiovascular: Denies chest pain or palpitations Respiratory/Chest Respiratory/Chest: Denies cough or dyspnea Gastrointestinal Gastrointestinal: Reports abdominal pain, diarrhea, nausea and vomiting; Denies melena Genitourinary Genitourinary ED: Denies dysuria or hematuria Musculoskeletal Musculoskeletal: Reports back pain; Denies neck pain Integumentary Denies abscess or rash Neurologic Neurologic: Denies headache(s) or weakness Allergic/Immunologic Allergic/Immunologic ED: Denies mouth swelling or urticaria EXAM Physical Exam Const Vital Signs: 10/04/24 10:11 10/04/24 11:11 10/04/24 12:00 Temperature 98.6 F Temperature Source Oral Pulse Rate 71 70 85 Respiratory Rate 18 14 14 Blood Pressure 115/75 115/68 124/73 H Blood Pressure Mean 88 83 90 Pulse Ox 100 100 100 Oxygen Delivery Method Room Air Room Air Room Air 10/04/24 13:00 10/04/24 13:55 Temperature 98.6 F Temperature Source Pulse Rate 70 70 Respiratory Rate 14 14 Blood Pressure 123/72 H 123/72 H Blood Pressure Mean 89 89 Pulse Ox 99 99 Oxygen Delivery Method Room Air Positive well nourished and well developed Constitutional Narrative: BMI is 22.1. General Appearance ED: well developed and NAD HEENT Reports moist mucous membranes normocephalic and atraumatic Neck supple and no JVD Resp normal respiratory effort and clear to auscultation bilaterally Cardio regular rate and regular rhythm GI non-distended Palpation: soft and tender LLQ, periumbilical and suprapubic; Negative for guarding or rebound tenderness present Neuro CN's II-XII intact bilaterally, moves all extremities and no sensory deficits noted Sensorium / Orientation: alert Motor Exam: strength 5/5 throughout Psych mental status grossly normal MDM MDM MDM Narrative Medical decision making narrative: Differential diagnosis includes ureteral calculus, pyelonephritis, urinary tractinfection, diverticulitis, pancreatitis, ectopic , ovarian cyst, and constipation. CT scan of the abdomen and pelvis will be obtained to assess for ureteral calculus, diverticulitis, pancreatitis, bowel obstruction, perforation. CBC will be obtained to assess for leukocytosis and anemia. Comprehensive metabolic profile will be obtained to assess for hepatic function, renal function, and electrolyte abnormality. Lipase will be obtained to assess for pancreatitis. Serum hCG will be obtained to assess for . Urinalysis will be obtained to assess for urinary tract infection and hematuria. History & Record Review Additional record(s) reviewed:: Prior outpatient record Lab Data Attestation: I reviewed the patient's lab results. Lab results narrative: CBC was reviewed. There is a leukocytosis of 15.5. The remainder is within normal limits. Comprehensive metabolic profile was reviewed and was essentiallywithin normal limits. Lipase was reviewed andwas normal at 48. Serum hCG was reviewed and was negative. Urinalysis was reviewed. There is no evidence of urinary tract infection or hematuria. Labs: Laboratory Results - last 24 hr 10/04/24 10/04/24 11:10 11:20 WBC 15.5 H RBC 4.73 Hgb 13.4 Hct 39.7 MCV 83.9 MCH 28.3 MCHC 33.8 RDW Std Deviation 36.1 RDW Coeff of Alcira 11.9 Plt Count 264 MPV 10.3 Immature Gran % (Auto) 0.700 Neut % (Auto) 88.2 H Lymph % (Auto) 5.2 L Beadle % (Auto) 5.5 Eos % (Auto) 0.1 Baso % (Auto) 0.3 Absolute Neuts (auto) 13.6 H Absolute Lymphs (auto) 0.81 L Nucleated RBC % 0 Sodium 138 Potassium 3.6 Chloride 102 Carbon Dioxide 20.8 L Anion Gap 15 BUN 11 Creatinine 0.74 Estim Creat Clear Calc 86.10 Est GFR (MDRD) Non-Af 106 BUN/Creatinine Ratio 14.7 Glucose 99 Calcium 9.2 Total Bilirubin 0.64 AST 19 ALT 12 Alkaline Phosphatase 43 Total Protein 7.7 Albumin 4.7 Globulin 3.1 Albumin/Globulin Ratio 1.5 Lipase 48 Serum , Qual NEGATIVE Urine Color Yellow Urine Clarity Clear Urine pH 6.0 Ur Specific [place] 1.010 Urine Protein 15 H Urine Glucose (UA) Normal Urine Ketones 50 H Urine Occult Blood 50 H Urine Nitrite Negative Urine Bilirubin Negative Urine Urobilinogen Normal Ur Leukocyte Esterase Negative Urine RBC 0-5 SEEN Urine WBC 0 SEEN Ur Squamous Epith Cells 0-5 SEEN Urine Bacteria 0 SEEN Urine Mucus 0 SEEN Radiography Diagnostic Testing: Clinical Impression(s) from Imaging Studies Abdomen/Pelvis CT 10/04/24 10:59 IMPRESSION: 1. The appendix measures up to 8 mm in diameter with subtle fat stranding. This could be evolving or resolving acute appendicitis. No pneumoperitoneum or abscess. 2. Hepatomegaly with fatty infiltration. 3. No obstructive uropathy. 4. Umbilical hernia containing fat. 5. Fecal retention in the colon consistent with constipation. Reading Location: [facility]S AT [facility] CT scan of the abdomen and pelvis was obtained. The appendix measures 8 mm in diameter with subtle fat stranding. There is an umbilical hernia containing fat. There is fecal retention in the colon consistent with constipation. Thereis no ureteral calculus or obstructive uropathy. This was interpreted by the radiologist and was also independently reviewed by myself. Management Discussion w/another healthcare provider: [employer] (Dr. Tyson) Treatment and Re-Evaluation :: Patient was given IV fluids, morphine, and Zofran. Patient was advised of her findings. Patient wasgiven a dose of Zosyn. Case was discussed with Dr. Tyson. She will likely take patient to the operating room later today. Patient and understand and are agreeable with the plan. All questions were answered. Discharge Plan Dx/Rx/DC Orders Clinical Impression: Acute appendicitis, Abdominal pain Disposition Disposition: Acute Care Hospital [facility] Discharge Date/Time: 10/04/24 13:56 What to do if you have Problems For any increased pain, shortness of breath, bleeding, nausea or vomiting, chestpain, or any unexpected problems, contact your Primary Care Provider. Call [facility] ([phone]) or report tothe closest Emergency Room. Call 911 if necessary. 10/04/24 1602 Cosigner Signature (if applicable): CC: Dr. Piedad Sun MD ~ Signed [facility]07-09-2025 Consult note [facility] Medical Records Department [address] [place] [address] Pre-Anesthesia Evaluation 10/04/24 1422 MR#: [id number] Acct: [id number] Name: YAQUELIN HARTLEY Rep #:[id number] : 1985 39 From: Lyndon Dawn PCP: Dr. Piedad Sun MD Status:REG S DC Y Race: C Location: [place] [address] ASA Classification* ASA Classification ASA Classification: 1 [...] changes. Performed airway and anesthesia risk assessments. Procedural Plan Add'l anesthesia plan details: Had 2 small cookies at noon. The surgeon is calling this an emergency. I discussed in detail with the patient and her the risk of aspiration. Anesthesia Type Anesthesia Type: General History Source History Obtained from:: Patient and Chart Anesthesia Focused Assessment* Temperature: 98.6 F Pulse Rate: 70 Blood Pressure: 123/72 Respiratory Rate: 14 Pulse Ox: 99 Oxygen Delivery Method: Room Air Airway Assessment Mouth opens: >3 cm Mallampati Score: I Teeth Condition: Intact Neck Range of motion (ROM): Full ROM Labs Anesthesia Preop lab: CBC WBC 15.5 K/mm3 (4.4-11.0) H 10/04/24 11:10 5 RBC 4.73 M/mm3 (4.2-5.4) 10/04/24 11:10 10/04/24 Hgb 13.4 g/dL (12.0-15.0) 10/04/24 11:10 10/04/24 Hct 39.7 % (37-47) 10/04/24 11:10 10/04/24 Plt Count 264 K/mm3 (150-450) 10/04/24 11:10 10/04/24 CHEMISTRY Potassium 3.6 mmol/L (3.3-5.1) 10/04/24 11:10 10/04/24 Sodium 138 mmol/L (133-145) 10/04/24 11:10 10/04/24 Phosphorus 3.7 mg/dL (2.5-4.9) 11/25/12 07:50 11/25/12 BUN 11 mg/dL (4-19) 10/04/24 11:10 10/04/24 Creatinine 0.74 mg/dL (0.70-1.20) 10/04/24 11:10 10/04/24 Glucose 99 mg/dL (70-99) 10/04/24 11:10 10/04/24 COAG Urine Test Negative Negative 08/23/24 05:38 08/23/24 Pre-Assessment Diagnosis/Proposed Procedure Planned Operative Procedure(s): Laparoscopic appendectomy Anesthesia History 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 When Was Last Pacemaker Check QUESTION #4 FULL TEXT: You/Your Family Experience fever (hyperthermia) with Anesthesia Last Oral Intake Last Oral intake: Last Oral Intake NPO since Meds taken in AM with sips of water? Meds patient instructed to take am of surgery PONV PONV - sofa inspector: PONV - sofa inspector Female HX of Motion Sickness HX of N/V After Surgery Non-Smoker Duration of Surgery greater than 60 minutes Number of Risk Factors PONV Score Height & Weight Height & Weight: Anesthesia: Height & Weight Height 5 ft 3 in 10/04/24 10:11 Weight: 56.699 kg 10/04/24 10:11 Body Mass Index (BMI) 22.1 10/04/24 10:11 Respiratory Assessment Respiratory Assessment - sofa inspector: Respiratory Tract Infection Hx - sofa inspector Hx Respiratory Tract Infection No 08/18/24 11:49 STOP Sleep Apnea STOP Sleep Apnea - sofa inspector: STOP Sleep Apnea - sofa inspector Hx Hypertension No 08/18/24 11:49 Hx Sleep Apnea No 08/18/24 11:49 CPAP BIPAP Do you snore loudly (louder than talking or can be heard Do you often feel tired/ fatigued/ sleepy during daytime? Has anyone observed you stop breathing during sleep? STOP Results QUESTION #5 FULL TEXT : Do you snore loudly (louder than talking or can be heard through closeddoors)? Tobacco Use History Tobacco Use History - sofa inspector: Tobacco Use History - sofa inspector Tobacco Use Smoking Status Never smoker 10/04/24 10:23 Hx Tobacco Use No 08/18/24 11:49 Years Smoking Packs Smoked per Day Smoking Cessation Date was within the last 15 years Hx Smoking Cessation Date Hx Smoking Cessation No 10/04/24 10:23 Counseling Hematologic Medial History Hematologic Hx - sofa inspector: Hematologic Medical Hx - patient monitor Hx of Blood Transfusion Hx of Transfusion in last 3 Months Date of Last Transfusion (if within last 3 months) Ever experience any problems with transfusion(s)? Specify any problems Hx of Preganancy in last 3 Months Nurse Filling Out Transfusion & Questions: Date: Time: Patient unable to answer at this time (ie. confused, unrespo /Reproduction History /Reproductive History - sofa inspector: /Reproductive Hx- sofa inspector Hx Now Gestational Age (in weeks): EDC: Hx Hx Para Hx Section SAB No 10/04/24 10:11 PFSH Medical History Wears glasses Wears contact lenses Migraine headache History of IBS Gastric reflux Former smoker Home Medications ?Medication ?Instructions ?Recorded ?Last Taken ?Type omeprazole 20 mg capsule,delayed 20 mg PO QDAY GERD #9 0 caps 06/14/24 08/22/24 Rx release hyoscyamine sulfate 0.125 mg 0.125 mg PO BID-QID PRN a bdominal 09/13/24 Unknown Rx disintegrating tablet cramping, diarrhea #60 tabs Allergy/AdvReac Type Severity Reaction Status Date / [...] and no additional complaints, except as documented. 10/04/24 1437 > Date _ Lyndon Vitale MD Cosigner Signature: Date CC: ~ Signed [facility]07-09-2025 History and physical note [facility] Medical Records Department [address] [place] [address] History & Physical Exam 10/04/24 1356 MR#: [id number] Acct: [id number] Name: YAQUELIN HARTLEY Rep #:[id number] : 1985 39 From: Jaymie FISHER PA-C PCP: Dr. Piedad Sun MD Status:REG S DC Location: [place] [address] HPI - General General Date of Admission: 10/04/24 Date of Service: 10/04/24 Chief Complaint: Periumbilical pain HPI Narrative YAQUELIN HARTLEY, is a 39 F who presents with 1 day history of worsening periumbilicalpain. She notes at 0500 AM is when the pain presented. She stated the pain became worse and she contacted her at 0930 AM to take her to the ED. Shenotes associated nausea and vomiting. She notes lack of appetite. She recently had a colonoscopy with Dr. Shah for irritable bowel disease. Findings include a tubular adenoma at the hepatic flexure. Patient takes omeprazole. She denies any previous abdominal surgeries. She denies previous cardiac and pulmonary issues. CT scan of the ab/pel demonstrated acute appendicitis. WBC 15.5 PFSH Medical History Wears glasses Wears contact lenses Migraine headache History of IBS Gastric reflux Former smoker Home Medications ?Medication ?Instructions ?Recorded ?Last Taken ?Type omeprazole 20 mg capsule,delayed 20 mg PO QDAY GERD #9 0 caps 06/14/24 08/22/24 Rx release hyoscyamine sulfate 0.125 mg 0.125 mg PO BID-QID PRN a bdominal 09/13/24 Unknown Rx disintegrating tablet cramping, diarrhea #60 tabs Allergy/AdvReac Type Severity Reaction Status Date / [...] 3-4 times per week ROS Constitutional Constitutional: Reports systems reviewed and no addt'l complaints, except as documented Eyes Eyes: Reports systems reviewed and no addt'l complaints, except as documented ENT HEENT: Reports systems reviewed and no addt'l complaints, except as documented Cardiovascular Cardiovascular: Reports systems reviewed and no addt'l complaints, except as documented Respiratory/Chest Respiratory/Chest: Reports systems reviewed and no addt'l complaints, except as documented Gastrointestinal Gastrointestinal: Reports systems reviewed and no addt'l complaints, except as documented Genitourinary Genitourinary: Reports systems reviewed and no addt'l complaints, except as documented Musculoskeletal Musculoskeletal: Reports systems reviewed and no addt'l complaints, except as documented Integumentary Integumentary: Reports systems reviewed and no addt'l complaints, except as documented Neurologic Neurologic: Reports systems reviewed and no addt'l complaints, except as documented Psychiatric Psychiatric: Reports systems reviewed and no addt'l complaints, except as documented Endocrine Endocrinology: Reports systems reviewed and no addt'l complaints, except as documented Hematologic/Lymphatic Hematologic/Lymphatic: Reports systems reviewed and no addt'l complaints, exceptas documented Allergic/Immunologic Allergic/Immunologic: Reports systems reviewed and no addt'l complaints, except as documented Vital Signs Vital Signs Vital Signs: 10/04/24 10:11 10/04/24 11:11 10/04/24 12:00 Temperature 98.6 F Temperature Source Oral Pulse Rate 71 70 85 Respiratory Rate 18 14 14 Blood Pressure 115/75 115/68 124/73 H Blood Pressure Mean 88 83 90 Pulse Ox 100 100 100 Oxygen Delivery Method Room Air Room Air Room Air 10/04/24 13:00 10/04/24 13:55 Temperature 98.6 F Temperature Source Pulse Rate 70 70 Respiratory Rate 14 14 Blood Pressure 123/72 H 123/72 H Blood Pressure Mean 89 89 Pulse Ox 99 99 Oxygen Delivery Method Room Air Weight Weight: 125 lb Body Mass Index (BMI) 22.1 Physical Exam Const alert, oriented x3 and no apparent distress HEENT normocephalic and head/scalp atraumatic Eyes PERRL Neck full ROM Lymph Lymphatic: no lymphadenopathy noted Chest inspection of chest normal Resp normal respiratory effort and clear to auscultation bilaterally Cardio regular rate and regular rhythm GI GI Narrative: Abdomen- soft, slightly distended, pain to palpation in the periumbilical and suprapubic region no CVA tenderness Back/Spine no CVA tenderness Extremity normal to inspection Skin no rashes or lesions noted Neuro no focal motor deficits and no sensory deficits noted Psych mental status grossly normal Results Lab / Micro Data 10/04/24 11:10 10/04/24 11:10 Labs: Laboratory Results - last 24 hr 10/04/24 11:10: WBC 15.5 H, RBC 4.73, Hgb 13.4, Hct 39.7, MCV 83.9, MCH 28.3, MCHC 33.8, RDW Std Deviation 36.1, RDW Coeff of Alcira 11.9, Plt Count 264, MPV 10.3, Immature Gran % (Auto) 0.700, Neut % (Auto) 88.2 H, Lymph % (Auto) 5.2 L, Beadle % (Auto) 5.5, Eos % (Auto) 0.1, Baso % (Auto) 0.3, AbsoluteNeuts (auto) 13.6 H, Absolute Lymphs (auto) 0.81 L, Nucleated RBC % 0, Sodium 138, Potassium 3.6, Chloride 102, Carbon Dioxide 20.8 L, Anion Gap 15, BUN 11, Creatinine 0.74,Estim Creat Clear Calc 86.10, Est GFR (MDRD) Non-Af 106, BUN/Creatinine Ratio 14.7, Glucose 99, Calcium 9.2, Total Bilirubin 0.64, AST 19, ALT 12, Alkaline Phosphatase 43, Total Protein 7.7, Albumin 4.7, Globulin 3.1, Albumin/G lobulin Ratio 1.5, Lipase 48, Serum , Qual NEGATIVE 10/04/24 11:20: Urine Color Yellow, Urine Clarity Clear, Urine pH 6.0, Ur Specific [place] 1.010, Urine Protein 15 H, Urine Glucose (UA) Normal, Urine Ketones 50 H, Urine Occult Blood 50 H, Urine Nitrite Negative, Urine Bilirubin Negative, Urine Urobilinogen Normal, Ur Leukocyte Esterase Negative, Urine RBC 0-5 SEEN, Urine WBC 0 SEEN, Ur Squamous Epith Cells 0-5 SEEN, Urine Bacteria 0 SEEN, UrineMucus 0 SEEN Imaging Radiology Impression Abdomen/Pelvis CT 10/04/24 10:59 IMPRESSION: 1. The appendix measures up to 8 mm in diameter with subtle fat stranding. This could be evolving or resolving acute appendicitis. No pneumoperitoneum or abscess. 2. Hepatomegaly with fatty infiltration. 3. No obstructive uropathy. 4. Umbilical hernia containing fat. 5. Fecal retention in the colon consistent with constipation. Reading Location: [facility]S AT [facility] Assessment & Plan Assessment/Plan (1) Acute appendicitis: QUALIFIERS: Acute appendicitis type: with localized peritonitis Appendicitis gangrene presence: without gangrene Appendicitis perforation presence: without perforation Appendicitis abscess presence: without abscess Qualified Code(s): K35.30 - Acute appendicitis with localized peritonitis, without perforation or gangrene PLAN: I am seeing this patient in conjunction with Dr. Tyson. She will independently evaluate this patient. Patient presented with a 1 day history of periumbilical pain that radiated to the suprapubic region. She had a CT scan of the ab/pel which demonstrated acute appendicitis with associated leukocytosis with left shift. Plan will be for Dr. Tyson to perform a laparoscopic appendectomy. Procedure details, risks and benefits have been explained. Patientand her have had the opportunity to ask and have questions answered. Patient verbally understands and agrees with the plan. Plan will be to admit thepatient for observation following the procedure. Thank you for allowing us to participate in this patient's care. Charges/Coding Visit Charges OBSV E&M: 59701 Observ/hosp same date L2 (pre-op) 10/04/24 1413 Cosigner Signature (if applicable): CC: CAROL Simpson; Dr. Piedad Sun MD~ Signed [facility]07-09-2025 [facility] Medical Records Department [address] [place] [address] History Physical Exam 10/04/24 1356 MR#: [id number] Acct: [id number] Name: YAQUELIN HARTLEY Rep #: [id number] : 1985 39 From: Jaymie FISHER PA-C PCP: Dr. Piedad Sun MD [place] [facility] [place] [facility] HPI - General General Date of Admission: 10/04/24 Date of Service: 10/04/24 Chief Complaint: Periumbilical pain HPI Narrative YAQUELIN HARTLEY, is a 39 F who presents with 1 day history of worsening periumbilical pain. She notes at 0500 AM is when the pain presented. She stated the pain became worse and she contacted her at 0930 AM to take her to the ED. She notes associated nausea and vomiting. She notes lack of appetite. She recently had a colonoscopy with Dr. Shah for irritable bowel disease. Findings include a tubular adenoma at the hepatic flexure. Patient takes omeprazole. She denies any previous abdominal surgeries. She denies previous cardiac and pulmonary issues. CT scan of the ab/pel demonstrated acute appendicitis. WBC 15.5 PFSH Medical History Wears glasses Wears contact lenses Migraine headache History of IBS Gastric reflux Former smoker Home Medications ???Medication ???Instructions ???Recorded ???Last Taken ???Type omeprazole 20 mg capsule,delayed 20 mg PO QDAY GERD #90 caps 08/22/24 Rx release hyoscyamine sulfate 0.125 mg 0.125 mg PO BID-QID PRN abdominal 09/13/24 Unknown Rx disintegrating tablet cramping, diarrhea #60 tabs Allergy/AdvReac Type Severity Reaction Status Date / [...] 3-4 times per week ROS Constitutional Constitutional: Reports systems reviewed and no addt'l complaints, except as documented Eyes Eyes: Reports systems reviewed and no addt'l complaints, except as documented ENT HEENT: Reports systems reviewed and no addt'l complaints, except as documented Cardiovascular Cardiovascular: Reports systems reviewed and no addt'l complaints, except as documented Respiratory/Chest Respiratory/Chest: Reports systems reviewed and no addt'l complaints, except as documented Gastrointestinal Gastrointestinal: Reports systems reviewed and no addt'l complaints, except as documented Genitourinary Genitourinary: Reports systems reviewed and no addt'l complaints, except as documented Musculoskeletal Musculoskeletal: Reports systems reviewed and no addt'l complaints, except as documented Integumentary Integumentary: Reports systems reviewed and no addt'l complaints, except as documented Neurologic Neurologic: Reports systems reviewed and no addt'l complaints, except as documented Psychiatric Psychiatric: Reports systems reviewed and no addt'l complaints, except as documented Endocrine Endocrinology: Reports systems reviewed and no addt'l complaints, except as documented Hematologic/Lymphatic Hematologic/Lymphatic: Reports systems reviewed and no addt'l complaints, except as documented Allergic/Immunologic Allergic/Immunologic: Reports systems reviewed and no addt'l complaints, except as documented Vital Signs Vital Signs Vital Signs: 10/04/24 10:11 10/04/24 11:11 10/04/24 12:00 Temperature 98.6 F Temperature Source Oral Pulse Rate 71 70 85 Respiratory Rate 18 14 14 Blood Pressure 115/75 115/68 124/73 H Blood Pressure Mean 88 83 90 Pulse Ox 100 100 100 Oxygen Delivery Method Room Air Room Air Room Air 10/04/24 13:00 10/04/24 13:55 Temperature 98.6 F Temperature Source Pulse Rate 70 70 Respiratory Rate 14 14 Blood Pressure 123/72 H 123/72 H Blood Pressure Mean 89 89 Pulse Ox 99 99 Oxygen Delivery Method Room Air Weight Weight: 125 lb Body Mass Index (BMI) 22.1 Physical Exam Const alert, oriented x3 and no apparent distress HEENT normocephalic and head/scalp atraumatic Eyes PERRL Neck full ROM Lymph Lymphatic: no lymphadenopathy noted Chest inspection of chest normal Resp normal respiratory effort and clear to auscultation bilaterally Cardio regular rate and regular rhythm GI GI Narrative: Abdomen- soft, slightly distended, pain to palpation in the periu (more content not included)...[facility]07-09-2025 Radiology Diagnostic study note [facility] Imaging Services [address] [place] [address] Abdomen/Pelvis W IV Cont ONLY MR#: [id number] Acct: [id number] Name: YAQUELIN HARTLEY Rep #: [id number] : 1985 F 39 From: Kalani Li MD PCP: Dr. Piedad Sun MD Status: REG E R Study:Abdomen/Pelvis W IV Cont ONLY Date of E xam: 10/04/24 Exam# [id number] Ordering Dr: Louie Song DO ADDENDUM by Dr. Naveen Li MD on 10/04/24 at 1257 The appendix measures up to 11 mm in diameter with subtle fat stranding. This could be evolving or resolving acute appendicitis. Red Alert: Dilatation of the appendix measuring up to 11 millimeter in diameter with subtle surrounding fat stranding. Early acute appendicitis can not be excluded. The critical information above was relayed directly by me by telephone to Louie Song on 10/04/2024 at 12:54 pm with readback verification. Reading Location: [facility] BEDS AT [facility] 10/04/24 1257 Date cc: Dr. Louie Song DO; Dr. Piedad Sun MD ~* Signed EXAM: CT Abdomen and Pelvis With Intravenous Contrast CLINICAL INDICATION: PAIN TECHNIQUE: Axial computed tomography images of the abdomen and pelvis with intravenous contrast. This CT exam was performed using one or more of the following dose reduction techniques: automated exposure control, adjustment of the mA and/or kV according to patient size, and/or use of iterative reconstruction technique. COMPARISON: No relevant prior studies available. FINDINGS: LUNG BASES: Unremarkable. No mass. No consolidation. ABDOMEN: LIVER: Hepatomegaly with fatty infiltration. GALLBLADDER AND BILE DUCTS: Unremarkable. No calcified stones. No ductal dilation. PANCREAS: Unremarkable. No mass. No ductal dilation. SPLEEN: Unremarkable. No splenomegaly. ADRENALS: Unremarkable. No mass. KIDNEYS AND URETERS: Unremarkable. No stones within either kidney. No hydronephrosis. STOMACH AND BOWEL: Fecal retention in the colon consistent with constipation. No obstruction. No mucosal thickening. PELVIS: APPENDIX: The appendix measures up to 8 mm in diameter with subtle fat stranding. This could be evolving or resolving acute appendicitis. No pneumoperitoneum or abscess. BLADDER: Unremarkable. No mass. REPRODUCTIVE: Unremarkable as visualized. ABDOMEN and PELVIS: INTRAPERITONEAL SPACE: See above. BONES/JOINTS: No acute fracture. No dislocation. SOFT TISSUES: Umbilical hernia containing fat. VASCULATURE: Unremarkable. No abdominal aortic aneurysm. LYMPH NODES: Unremarkable. No enlarged lymph nodes. CT/Abdomen/Pelvis W IV Cont ONLY IMPRESSION: 1. The appendix measures up to 8 mm in diameter with subtle fat stranding. This could be evolving or resolving acute appendicitis. No pneumoperitoneum or abscess. 2. Hepatomegaly with fatty infiltration. 3. No obstructive uropathy. 4. Umbilical hernia containing fat. 5. Fecal retention in the colon consistent with constipation. Reading Location: [facility]EDS AT [facility] CC: Dr. Louie Song DO; Dr. Piedad Sun MD ~ Homicide Squad Lieutenant: Signed [facility]05-28-2025 Consult note [facility] Medical Records Department [address] [place] [address] Anesthesia Postop Eval II 08/23/24 0813 MR#: [id number] Acct: [id number] Name: YAQUELIN HARTLEY Rep #:[id number] : 1985 38 From: Elisabet Pinto PCP: Dr. Piedad Sun MD Status:REG S DC Y Race: C Location: [place] [address]- Anesthesia Postop Eval I Sum Postop Eval [...] 0 nausea: No Vomiting: No 08/23/24 0813 a> Date _ Elisabet Nascimento Signature: Date CC: ~ Signed [facility]05-28-2025 Consult note Author [facility] Note Date/Time August 23, 2024 6:26a [facility] Medical Records Department [address] [place] [address] Pre-Anesthesia Evaluation 08/23/24 0622 MR#: [id number] Acct: [id number] Name: YAQUELIN HARTLEY Rep #:[id number] : 1985 38 From: Reed Liz MD PCP: Dr. Piedad Sun MD Status:REG S DC Y Race: C Location: [place] [address] ASA Classification* ASA Classification ASA Classification: 1 [...] Procedure(s): CSCOPE Anesthesia History Anesthesia History - sofa inspector: Anesthesia History - sofa inspector Hx Hospitalization No 08/18/24 11:49 Any Problems [...] take am of surgery PONV PONV - sofa inspector: PONV - sofa inspector Female Yes 08/18/24 11:49 HX of Motion [...] 08/23/24 05:52 Respiratory Assessment Respiratory Assessment - sofa inspector: Respiratory Tract Infection Hx - sofa inspector Hx Respiratory Tract Infection No 08/18/24 11:49 STOP Sleep Apnea STOP Sleep Apnea - sofa inspector: STOP Sleep Apnea - sofa inspector Hx Hypertension No 08/18/24 11:49 Hx Sleep [...] Tobacco Use History Tobacco Use History - sofa inspector: Tobacco Use History - sofa inspector Tobacco Use Smoking Status Former smoker 08/18/24 11:49 Hx Tobacco Use No 08/18/24 11:49 Years Smoking Packs Smoked per Day Smoking Cessation Date was Yes - quit smoking within 15 08/18/24 11:49 within the last 15 years years Hx Smoking Cessation Date Hx Smoking Cessation No 08/18/24 11:49 Counseling Hematologic Medial History Hematologic Hx - sofa inspector: Hematologic Medical Hx - patient monitor Hx of Blood Transfusion No 08/18/24 11:49 [...] confused, unrespo /Reproduction History /Reproductive History - sofa inspector: /Reproductive Hx- sofa inspector Hx Now No 08/18/24 11:49 Gestational Age (in weeks): EDC: Hx Hx Para Hx Section SAB No 08/18/24 11:49 Active Medications Active Medications: Current Medications Generic Name Dose Route Start Last Admin Trade Name Luis PRN Reason Stop Dose Admin Lactated Ringer's 1,000 mls @ 15 mls/hr 08/23/24 05:45 08/23/24 06:00 IV 15 mls/hr .Q48H GOMEZ Administration PFSH Medical History Wears glasses Wears contact lenses Migraine headache History of IBS Gastric reflux Former smoker Home Medications ?Medication ?Instructions ?Recorded ?Last Taken ?Type omeprazole 20 mg capsule,delayed 20 mg PO QDAY GERD #9 0 caps 06/14/24 08/22/24 Rx release [id number] 100 gram-sod sulf 7.5 See Rx Instructions PO P ER PKG DIR 08/22/24 Unknown Rx kjzo-JmVn-OMi-ascorbate-C oral #1 ea pwdr pack (MoviPrep) Allergy/AdvReac [...] MD Cosigner Signature: Date CC: ~ Signed [facility] Work Phone: 1(658) 495-383205-28-2025 Procedure note [facility] Medical Records Department [address] [place] [address] Colonoscopy Report MR#: [id number] Acct: [id number] Name: YAQUELIN HARTLEY Rep #:[id number] : 1985 38 From: Phillip Shah DO PCP: Dr. Piedad Snu MD Status:REG S DC Patient Name: Yaquelin Hartley Procedure Date: 08/23/2024 6:50 AM Date of : 1985 Age: 38 Procedure: Colonoscopy Indications: Generalized abdominal pain, Change in bowel habits, Constipation, Obstipation Providers: Phillip Shah DO Referring MD: Piedad Sun Md Medicines: Monitored Anesthesia Care Patient Profile: [...] GI office. Procedure Code(s): --- Professional --- 54375, Colonoscopy, flexible; with biopsy, single or multiple CPT copyright 2021 [employer]. All rights reserved. The codes documented in this report are preliminary and upon curer acid drum review may be revised to meet current compliance requirements. Phillip Shah DO 08/23/2024 7:36:43 AM This report has been signed electronically. Number of Addenda: 0 Note Initiated On: 08/23/2024 6:50 AM 08/23/24 0737 Date _ Phillip Shah DO Cosigner Signature: Date (if indicated) CC: Dr. Piedad Sun MD; Phillip Shah DO ~ Date Dictated: 08/23/24 0650 Date Transcribed: Homicide Squad Lieutenant: RF Signed [facility]05-28-2025 Procedure note [facility] Records Department [address] [place] [address] Operative Report - CC Letter MR#: [id number] Acct: [id number] Name: YAUQELIN HARTLEY Rep #:[id number] : 1985 38 From: Phillip Shah DO PCP: Dr. Piedad uSn MD Status:REG S DC 08/23/2024 Piedad Sun Md Re : Colonoscopy procedure for Yaquelin Hartley Dear Dr. Sun This procedure was performed on Friday, August [...] AM This report has been signed electronically. 08/23/24 0737 Date _ Phillip Solisignkevyn Signature: Date (if indicated) CC: Dr. Piedad Sun MD; Phillip Shah DO ~ Date Dictated: 08/23/24 0650 Date Transcribed: Homicide Squad Lieutenant: RF Signed [facility]05-28-2025 Consult note [facility] Medical Records Department [address] [place] [address] Anesthesia Postop Eval I 08/23/24728 MR#: [id number] Acct: [id number] Name: YAQUELIN HARTLEY Rep #:[id number] : 1985 38 From: Lucien Naqvi PCP: Dr. Piedad Sun MD Status:REG S DC Y Race: C Location: [place] [address] Anesthesia: Postop Eval I Current Vital Signs [...] Lucien Nascimento Signature: Date CC: ~ Signed [facility]05-28-2025 Evaluation note* Diagnosis Onset Date Resolution Status Admit Date Abdominal cramping acute August 232024 5:22am Abdominal pain acute August 23, 2024 5:22am Constipation acute August 23 5:22am GERD (gastroesophageal reflu x disease) acute August 23, 2024 5 :22am IBS (irritable bowel syndrome) acute August 23, 2024 5:22am GERD (gastroesophageal reflu x disease) acute September 13, 2024 7:59am IBS (irritable bowel syndrome) acute September 13, 2024 7:59am Acute appendicitis resolved October 042024 2:14pm [facility] Services Work Phone: 1(798) 496-232305-28-2025 Evaluation note* Diagnosis Onset Date Resolution Status Admit Date Abdominal cramping acute August 232024 5:22am Abdominal pain acute August 23, 2024 5:22am Constipation acute August 23 5:22am GERD (gastroesophageal reflu x disease) acute August 23, 2024 5 :22am IBS (irritable bowel syndrome) acute August 23, 2024 5:22am GERD (gastroesophageal reflu x disease) acute September 13, 2024 7:59am IBS (irritable bowel syndrome) acute September 13, 2024 7:59am Acute appendicitis resolved October 042024 2:14pm Endometriosis acute October 18, 2024 9:20am HPV test positive acute October 182024 9:20am IUD (intrauterine device) in place acute October 18, 2024 9:20am S/P laparoscopic appendectomy acute October 20, 2024 9:11am [facility] Work Phone: 1(441) 846-177305-28-2025 Evaluation note* Diagnosis Onset Date Resolution Status Admit Date Abdominal cramping acute August 232024 5:22am Abdominal pain acute August 23, 2024 5:22am Constipation acute August 23 5:22am GERD (gastroesophageal reflu x disease) acute August 23, 2024 5 :22am IBS (irritable bowel syndrome) acute August 23, 2024 5:22am GERD (gastroesophageal reflu x disease) acute September 13, 2024 7:59am IBS (irritable bowel syndrome) acute September 13, 2024 7:59am Acute appendicitis resolved October 042024 2:14pm Endometriosis acute October 18, 2024 9:20am HPV test positive acute October 182024 9:20am IUD (intrauterine device) in place acute October 18, 2024 9:20am Endometriosis acute October 20, 2024 9:11am S/P laparoscopic appendectomy acute October 20, 2024 9:11am [place] [facility] [facility] Work Phone: 1([phone]) 640-942905-28-2025 History and physical note [facility] Medical Records Department [address] [place] [address] History & Physical Exam 08/23/24 0701 MR#: [id number] Acct: [id number] Name: YAQUELIN HARTLEY Rep #:[id number] : 1985 38 From: Phillipolga Shah DO PCP: Dr. Piedad Sun MD Status:REG S DC Location: [place] [address] HPI - General General Date of Admission: 08/23/24 Date of Service: 08/23/24 Chief Complaint: abdominal pain , GERD, constipation HPI Narrative YAQUELIN HARTLEY, is a 38 F who presents [...] #9 0 caps 06/14/24 08/22/24 Rx release [id number] 100 gram-sod sulf 7.5 See Rx Instructions PO P ER PKG DIR 08/22/24 Unknown Rx jitj-SnFq-JYw-ascorbate-C oral #1 ea pwdr pack (MoviPrep) Allergy/AdvReac [...] minutes was spent on this visit reviewing [facility] and/or [email or web address] for associated records; previous notes (CBC, CMP 05/03/2024), counseling the patient on (high fiber diet, GERD diet, benefits of fiber supplements and probiotics, [facility] PPI recommendation), ordering tests (sitz marker, colonoscopy), adjusting meds (Omeprazole, FiberCon and Probiotic), importance of compliance with treatmentand documenting the findings in the note. Patient Instructions: - Complete Sitz Marker study - FiberCon 2 tablets once daily with 8 ounces of water after a meal. May take upto 3 weeks for symptom improvement. - Start a probiotic (4 the stars, [employer] or Odilo) once daily. These are all multispecies probiotics, [...] daily multispeciesprobiotic such as Align, Culturelle or [employer] [place] Colon Health. In addition to a probiotic, [...] considered definitive, and do not establish a eganr-edn-zamgly relationship between PPIs and the adverse conditions. [...] risks. Coding Level of Care Code Attention Lydia Diagnoses Gastroesophageal reflux disease, unspecified whether esophagitis present K21.9 Esophagitis presence: esophagitis presence not specified Constipation, unspecified constipation type K59.00 Constipation type: unspecified constipation type Generalized abdominal pain R10.84 Abdominal location: generalized Abdominal cramping R10.9 08/23/24 0722 Cosigner Signature (if applicable): CC: Dr. Piedad Sun MD; Phillip Shah DO~ Signed [facility]05-28-2025 [facility] Medical Records Department [address] [place] [address] History Physical Exam 08/23/24 0701 MR#: [id number] Acct: [id number] Name: YAQUELIN HARTLEY Rep #: [id number] : 1985 38 From: Phillip Shah DO PCP: Dr. Piedad Sun MD [place] [facility] [place]: [place] [address] HPI - General General Date of Admission: 08/23/24 Date of Service: 08/23/24 Chief Complaint: abdominal pain , GERD, constipation HPI Narrative YAQUELIN HARTLEY, is a 38 F who presents [...] QDAY GERD #90 caps 08/22/24 Rx release [id number] 100 gram-sod sulf 7.5 See Rx Instructions PO PER PKG DIR 08/22/24 Unknown Rx vhni-AnUd-BPk-ascorbate-C oral #1 ea pwdr pack (MoviPrep) Allergy/AdvReac [...] syndrome): PLAN: Assessment and (more content not included)...[facility] 08-23-2024 Consult note [facility] Medical Records Department [address] [place] [address] Pre-Anesthesia Evaluation 08/23/24 0622 MR#: [id number] Acct: [id number] Name: YAQUELIN HARTLEY Rep #:[id number] : 1985 38 From: Reed Liz MD PCP: Dr. Piedad Sun MD Status:REG S DC Y Race: C Location: [place] [address] ASA Classification* ASA Classification ASA Classification: 1 [...] Procedure(s): CSCOPE Anesthesia History Anesthesia History - sofa inspector: Anesthesia History - sofa inspector Hx Hospitalization No 08/18/24 11:49 Any Problems [...] take am of surgery PONV PONV - sofa inspector: PONV - sofa inspector Female Yes 08/18/24 11:49 HX of Motion [...] 08/23/24 05:52 Respiratory Assessment Respiratory Assessment - sofa inspector: Respiratory Tract Infection Hx - sofa inspector Hx Respiratory Tract Infection No 08/18/24 11:49 STOP Sleep Apnea STOP Sleep Apnea - sofa inspector: STOP Sleep Apnea - sofa inspector Hx Hypertension No 08/18/24 11:49 Hx Sleep [...] Tobacco Use History Tobacco Use History - sofa inspector: Tobacco Use History - sofa inspector Tobacco Use Smoking Status Former smoker 08/18/24 11:49 Hx Tobacco Use No 08/18/24 11:49 Years Smoking Packs Smoked per Day Smoking Cessation Date was Yes - quit smoking within 15 08/18/24 11:49 within the last 15 years years Hx Smoking Cessation Date Hx Smoking Cessation No 08/18/24 11:49 Counseling Hematologic Medial History Hematologic Hx - sofa inspector: Hematologic Medical Hx - patient monitor Hx of Blood Transfusion No 08/18/24 11:49 [...] confused, unrespo /Reproduction History /Reproductive History - sofa inspector: /Reproductive Hx- sofa inspector Hx Now No 08/18/24 11:49 Gestational Age [...] #9 0 caps 06/14/24 08/22/24 Rx release [id number] 100 gram-sod sulf 7.5 See Rx Instructions PO P ER PKG DIR 08/22/24 Unknown Rx zcgk-XnRy-OXx-ascorbate-C oral #1 ea pwdr pack (MoviPrep) Allergy/AdvReac [...] and no additional complaints, except as documented. 08/23/24 0626 makayla DOUGLAS> Date _ Reed Liz MD Cosigner Signature: Date CC: ~ Signed [facility]03-26-2025 Radiology Diagnostic study note [facility] Imaging Services [address] [place] [address] Abdomen Single View MR#: [id number] Acct: [id number] Name: YAQUELIN HARTLEY Rep #: [id number] : 1985 F 38 From: Gustavo Erickson MD PCP: Dr. Piedad Sun MD Status: REG C LI Study:Abdomen Single View Date of Exam: 06/21/24 Exam# [id number] Ordering Dr: Rowena Maxwell SUPERVISOR CONTACT LENSVitor EXAM: Abdomen single view CLINICAL HISTORY: Sitz marker day 5 COMPARISON: 06/19/2024 TECHNIQUE: 2 supine views of the abdomen and pelvis FINDINGS: Again no Sitz markers are present. No significant appearing fecal load. No gaseous distention of bowel. Intrauterine device and pelvic phleboliths again noted. RAD/Abdomen Single View IMPRESSION: Again no Sitz markers are present. Reading Location: [facility] CC: SUPERVISOR CONTACT LENS-C Rowena Maxwell; Dr. Piedad Sun MD ~ Homicide Squad Lieutenant: Signed [facility]03-25-2025 Radiology Diagnostic study note [facility] Imaging Services [address] [place] [address] Abdomen Single View MR#: [id number] Acct: [id number] Name: YAQUELIN HODGE Rep #: [id number] : 1985 F 38 From: Gustavo Erickson MD PCP: Dr. Piedad Sun MD Status: REG C LI Study:Abdomen Single View Date of Exam: 06/19/24 Exam# [id number] Ordering Dr: Rowena Maxwell EXAM: Abdomen single [...] IMPRESSION: No markers are present. Reading Location: [id number] CC: SUPERVISOR CONTACT LENS-C Rowena Maxwell; Dr. Piedad Sun MD ~ Homicide Squad Lieutenant: Signed [facility]03-19-2025 Evaluation note* Diagnosis Onset Date Resolution Status Admit Date Abdominal cramping acute June 14, 2024 8:09am Abdominal pain acute May 8:09am Constipation acute June 14, 2024 8:09am GERD (gastroesophageal reflu x disease) acute June 14, 2024 8:09am [facility] Work Phone: 1(449) 777-981503-19-2025 Evaluation note* Diagnosis Onset Date Resolution Status [...] bowel syndrome) acute August 23, 2024 5:22am [facility] Work Phone: 1(566) 650-832603-19-2025 Evaluation note* Diagnosis Onset Date Resolution Status [...] bowel syndrome) acute August 23, 2024 5:22am GERD (gastroesophageal reflu x disease) acute September 13, 2024 7:59am IBS (irritable bowel syndrome) acute September 13, 2024 7:59am [facility] Work Phone: 1(164) 194-905303-19-2025 Evaluation note* Diagnosis Onset Date Resolution Status [...] bowel syndrome) acute August 23, 2024 5:22am GERD (gastroesophageal reflu x disease) acute September 13, 2024 7:59am IBS (irritable bowel syndrome) acute September 13, 2024 7:59am Acute appendicitis acute October 042024 2:14pm [facility] Work Phone: 1([phone]) [phone] NotePatient Outreach (NETNAV) YAQUELIN HODGE ([id number]) 1985 F Date Time Provider Department 01/23/21 JUAN RAMON CAREY During your visit today, we recorded the following information about you: Juan Ramon Carey Population Health Navigator 01/23/2021 10:16 AM Signed [...] future healthcare decisions with a power of first responder, living will, or advance directives? No. Please bring a copy to your next appointment or email to Referrals: N/A Message Sent to Practice: NO Navigation Signature: Juan Ramon Carey Population Health Navigator January 23, 2021 10:16 AM Allergies As of Date: 01/23/2021 (No Known Allergies) Date Reviewed: 05/02/2016 Reviewed by: Mariah Meza LPN - Fully Assessed Reason for Visit: Population Health Navigation Outreach [[id number]] Cmt: Offboarding Prescriptions as of 01/23/2021 - [...] POPULATION HEALTH NAVIGATOR, JUAN RAMON Reece on 01/23/21[facility]10-28-2021 NoteHNO ID: [id number] Author: Juan Ramon [facility] Health Naviggeena Service: ? Author Type: ? Type: Progress [...] future healthcare decisions with a power of first responder, living will, or advance directives? No. Please bring a copy to your next appointment or email to Referrals: N/A Message Sent to Practice: NO Navigation Signature: Juan Ramon Carey Population Health Navigator January 23, 2021 10:16 [facility]06-13-2019 Consult note Author Lucien Naqvi [facility] Note Date/Time August 23, 2024 7:29a leny [facility] Medical Records Department [address] [place] [address] Anesthesia Postop Eval I 08/23/24728 MR#: [id number] Acct: [id number] Name: YAQUELIN HARTLEY Rep #:[id number] : 1985 38 From: Lucien Naqvi PCP: Dr. Piedad Sun MD Status:REG S DC Y Race: C Location: [place] [address] Anesthesia: Postop Eval I Current Vital Signs [...] Lucien Nascimento Signature: Date CC: ~ Signed [facility] Work Phone: Consult note Author Elisabet Pinto [facility] Note Date/Time August 23, 2024 8:31a [facility] Medical Records Department [address] [facility] [place] [address] Anesthesia Postop Eval II 08/23/24812 MR#: [id number] Acct: [id number] Name: YAQUELIN HARTLEY Rep #:[id number] : 1985 38 From: Elisabet Pinto PCP: Dr. Piedad Sun MD Status:REG S DC Y Race: C Location: [place] [address] Anesthesia Postop Eval I Sum Postop Eval [...] Elisabet Nascimento Signature: Date CC: ~ Signed [facility] Work Phone: Evaluation noteNo assessment information available [facility] Work Phone: Evaluation note* Diagnosis Unspecified lump in the right breast, upper outer quadrant [facility] Diagnosis Unspecified lump in the right breast, upper outer quadrant documented in this encounter [facility] Author Phillip Friend [facility] Note Date/Time August 23, 2024 7:22a leny [facility] Medical Records Department [address] [place] [address] History & Physical Exam 08/23/24 0701 MR#: [id number] Acct: [id number] Name: YAQUELIN HARTLEY Rep #:[id number] : 1985 38 From: Phillip Shah DO PCP: Dr. Piedad Sun MD Status:REG S DC Location: [place] [address] HPI - General General Date of Admission: 08/23/24 Date of Service: 08/23/24 Chief Complaint: abdominal pain , GERD, constipation HPI Narrative YAQUELIN HARTLEY, is a 38 F who presents [...] #9 0 caps 06/14/24 08/22/24 Rx release [id number] 100 gram-sod sulf 7.5 See Rx Instructions PO P ER PKG DIR 08/22/24 Unknown Rx ktsz-MqSe-BQc-ascorbate-C oral #1 ea pwdr pack (MoviPrep) Allergy/AdvReac [...] minutes was spent on this visit reviewing [facility] and/or [employer] for associated records; previous notes (CBC, CMP [...] for symptom improvement. - Start a probiotic (Align, Culturelle or Odilo) once daily. These are all multispecies probiotics, [...] daily multispeciesprobiotic such as Align, [employer] or [facility]. In addition to a probiotic, I [...] considered definitive, and do not establish a [id number] relationship between PPIs and the adverse conditions. [...] risks. Coding Level of Care Code Attention Lydia Diagnoses Gastroesophageal reflux disease, unspecified whether esophagitis present K21.9 Esophagitis presence: esophagitis presence not specified Constipation, unspecified constipation type K59.00 Constipation type: unspecified constipation type Generalized abdominal pain R10.84 Abdominal location: generalized Abdominal cramping R10.9 08/23/24 0722 <Electronically signed by Phillip Shah DO> Cosigner Signature (if applicable): CC: Dr. Piedad Sun MD; Phillip Shah DO~ Signed [facility] Work Phone: Reason for referral (narrative)No reason for referral information [facility] Work Phone: Summary Purpose Family History No Family History Records Found Relationship Condition Age at Onset Recorded Date/T fausto grandmother Irritable bowel syndrome Unknown Rheumatoid arthritis Unknown Fibromyalgia Unknown Hypertension Unknown mother Arthritis Unknown father Hypertension Unknown grandfather Hypertension Unknown Advance Directives No Advanced Directives Records Found Advance Directive Response Recorded Date/ Time Do you have a Healthcare Power of Screen Making Technician? No August 18, 2024 11:49am Advance Directive Response Recorded Date/ Time Do you have a Healthcare Power of Screen Making Technician? No October 04, 2024 10:23am Do you have a Healthcare Power of Screen Making Technician? No August 18, 2024 11:49am Advance Directive Response Recorded Date/ Time Do you have a Healthcare Power of Screen Making Technician? No October 04, 2024 5:26pm Do you have a Healthcare Power of Screen Making Technician? No August 18, 2024 11:49am Chief Complaint [...] 2024 8:0 9am GERD (gastroesophageal reflux disease) M [facility] 2024 8:09am Reason for Visit Admit Date Abdominal cramping June 14, 2024 8:0 9am Abdominal pain June 14, 2024 8:0 9am Constipation June 14, 2024 8:0 9am GERD (gastroesophageal reflux disease) M [facility] 2024 8:09am Abdominal cramping August 23, 2024 5:22a m Abdominal pain August 23, 2024 5:22a m Constipation August 23, 2024 5:22a m GERD (gastroesophageal reflux disease) M 2024 5:22am IBS (irritable bowel syndrome) August 23, 2024 5:22am Chief Complaint Admit Date Ongoing GI Issues June 14, 2024 8:0 9am [employer] Day 3 June 19, 2024 4:5 4pm test result September 13, 2024 7:59 am Chief Complaint Admit Date Ongoing GI Issues June 14, 2024 8:0 9am S[employer] Day 3 June 19, 2024 4:5 4pm test result September 13, 2024 7:59 am API October 04, 2024 1:39p m Reason for Visit Admit Date Abdominal cramping June 14, 2024 8:0 9am Abdominal pain June 14, 2024 8:0 9am Constipation June 14, 2024 8:0 9am GERD (gastroesophageal reflux disease) [facility] 2024 8:09am Abdominal cramping August 23, 2024 5:22a m Abdominal pain August 23, 2024 5:22a m Constipation August 23, 2024 5:22a m GERD (gastroesophageal reflux disease) [facility] 2024 5:22am IBS (irritable bowel syndrome) August 23, 2024 5:22am GERD (gastroesophageal reflux disease) [facility] 2024 7:59am IBS (irritable bowel syndrome) August 7:59am Chief Complaint Admit Date Ongoing GI Issues June 14, 2024 8:0 9am S[employer]Marker Day 3 June 19, 2024 4:5 4pm test result September 13, 2024 7:59 am API October 04, 2024 1:56p m ACUTE APPENDICITIS October 04, 2024 2:14p m Reason for Visit Admit Date Abdominal cramping June 14, 2024 8:0 9am Abdominal pain June 14, 2024 8:0 9am Constipation June 14, 2024 8:0 9am GERD (gastroesophageal reflux disease) M arch 2024 8:09am Abdominal cramping August 23, 2024 5:22a m Abdominal pain August 23, 2024 5:22a m Constipation August 23, 2024 5:22a m GERD (gastroesophageal reflux disease) M ay 2024 5:22am IBS (irritable bowel syndrome) August 23, 2024 5:22am GERD (gastroesophageal reflux disease) J une 2024 7:59am IBS (irritable bowel syndrome) August 7:59am Acute appendicitis October 04, 2024 2:14p m Chief Complaint Admit Date test result September 13, 2024 7:59 am API October 04, 2024 1:56p m ACUTE APPENDICITIS October 04, 2024 2:14p m Endometriosis (BSA) October 18, 2024 9:20 am Reason for Visit Admit Date Abdominal cramping August 23, 2024 5:22a m Abdominal pain August 23, 2024 5:22a m Constipation August 23, 2024 5:22a m GERD (gastroesophageal reflux disease) M ay 2024 5:22am IBS (irritable bowel syndrome) August 23, 2024 5:22am GERD (gastroesophageal reflux disease) J [facility] 2024 7:59am IBS (irritable bowel syndrome) August 7:59am Acute appendicitis October 04, 2024 2:14p m Chief Complaint Admit Date test result September 13, 2024 7:59 am API October 04, 2024 1:56p m ACUTE APPENDICITIS October 04, 2024 2:14p m Endometriosis (BSA) October 18, 2024 9:20 am LAP APPY 7-9 October 20, 2024 9:11 am Reason for Visit Admit Date Abdominal cramping August 23, 2024 5:22a m Abdominal pain August 23, 2024 5:22a m Constipation August 23, 2024 5:22a m GERD (gastroesophageal reflux disease) M ay 2024 5:22am IBS (irritable bowel syndrome) August 23, 2024 5:22am GERD (gastroesophageal reflux disease) J une 2024 7:59am IBS (irritable bowel syndrome) August 7:59am Acute appendicitis October 04, 2024 2:14p m Endometriosis October 18, 2024 9:20 am HPV test positive October 18, 2024 9:20 am IUD (intrauterine device) in place October 18, 2024 9:20am S/P laparoscopic appendectomy October 20, 2024 9:11am Chief Complaint Admit Date test result September 13, 2024 7:59 am API October 04, 2024 1:56p m ACUTE APPENDICITIS October 04, 2024 2:14p m Endometriosis (BSA) October 18, 2024 9:20 am LAP APPY 7-9 October 20, 2024 9:11 am Endometriosis Concerns per *CB November 242024 9:20am Reason for Visit Admit Date Abdominal cramping August 23, 2024 5:22a m Abdominal pain August 23, 2024 5:22a m Constipation August 23, 2024 5:22a m GERD (gastroesophageal reflux disease) M ay 2024 5:22am IBS (irritable bowel syndrome) August 23, 2024 5:22am GERD (gastroesophageal reflux disease) J une 2024 7:59am IBS (irritable bowel syndrome) August 7:59am Acute appendicitis October 04, 2024 2:14p m Endometriosis October 18, 2024 9:20 am HPV test positive October 18, 2024 9:20 am IUD (intrauterine device) in place October 18, 2024 9:20am Endometriosis October 20, 2024 9:11 am S/P laparoscopic appendectomy October 20, 2024 9:11am Additional Source Comments INFORMATION SOURCE (unrecogn ized section and content) DATE CREATED AUTHOR 04/28/2021 [facility] DATE CREATED AUTHOR AUTHOR'S ORGANIZ ATION 05/07/2024 [facility] DATE CREATED AUTHOR AUTHOR'S ORGANIZ ATION 01/12/2025 [facility] DATE CREATED AUTHOR AUTHOR'S ORGANIZ ATION 01/21/2025 [facility] Goals (unrecognized section and content) Goals may be documented in a n alternate sectionGoals may be documented in an alternate sectionGoals may be documented in an alternate section Care Teams (unrecognized sec tion and content) Team Status: Active Member Role Status Dates Dr. Piedad Sun MD Primary Care Provider Active Team Status: Inactive Member Role Status Dates Dr. Piedad Sun MD Primary Care Provider Active Start: June 14, 2024 End: June 14, 2024 Dr. Piedad Sun MD Referring Provider Active Start: June 14, 2024 End: June 14, 2024 Rowena Maxwell NP-C Attending Provider Active Start: June 14, 2024 End: June 14, 2024 Team Status: Inactive Member Role Status Dates Dr. Piedad Sun MD Primary Care Provider Active Start: June 19, 2024 End: June 19, 2024 Rowena Maxwell SUPERVISOR CONTACT LENS-C Attending Provider Active Start: June 19, 2024 End: June 19, 2024 NATALIA Phelps Referring Provider Active Start: June 19, 2024 End: June 19, 2024 Team Status: Active Member Role Status Dates Dr. Piedad Sun MD Primary Care Provider Active Start: June 21, 2024 Rowena Maxwell SUPERVISOR CONTA[employer]-C Attending Provider Active Start: June 21, 2024 Rowena Maxwell NP-C Referring Provider Active Start: June 21, 2024 Team Status: Inactive Member Role Status Dates Dr. Piedad Sun MD Primary Care Provider Active Start: June 21, 2024 End: June 21, 2024 Rowena Maxwell SUPERVISOR CONTA[employer]-C Attending Provider Active Start: June 21, 2024 End: June 21, 2024 Rowena Maxwell NP-C Referring Provider Active Start: June 21, 2024 End: June 21, 2024 Still Cleaner Tube Relationship Specialty Start Date End Date Piedad Sun MD [address] [place] [address] PCP - General Family Medicine 07/05/24 Team Status: Inactive Member Role Status Dates Dr. Pidead Sun MD Primary Care Provider Active Start: August 23, 2024 End: August 23, 2024 Dr. Piedad Sun MD Referring Provider Active Start: August 23, 2024 End: August 23, 2024 Dr. Phillip Shah DO Attending Provider Active Start: August 23, 2024 End: August 23, 2024 Team Status: Active Member Role Status Dates Dr. Piedad Sun MD Primary Care Provider Active Start: August 23, 2024 Dr. Piedad Sun MD Referring Provider Active Start: August 23, 2024 Dr. Phillip Shah DO Attending Provider Active Start: August 23, 2024 Dr. Phillip Shah DO Other Provider Active St art: August 23, 2024 Team Status: Inactive Member Role Status Dates Dr. Piedad Sun MD Primary Care Provider Active Start: September 13, 2024 End: September 13, 2024 Dr. Piedad Sun MD Referring Provider Active Start: September 13, 2024 End: September 13, 2024 SARA Ruano Attending Provider Active Start: September 13, 2024 End: September 13, 2024 Team Status: Active Member Role/Relationship Status Dates Dr. Piedad Sun MD Primary Care Provider Active Team Status: Inactive Member Role/Relationship Status Dates Dr. Piedad Sun MD Primary Care Provider Active Start: June 14, 2024 End: June 14, 2024 Dr. Piedad Sun MD Referring Provider Active Start: June 14, 2024 End: June 14, 2024 SARA Ruano Attending Provider Active Start: June 14, 2024 End: June 14, 2024 Team Status: Inactive Member Role/Relationship Status Dates Dr. Piedad Sun MD Primary Care Provider Active Start: June 19, 2024 End: June 19, 2024 SARA Ruano Attending Provider Active Start: June 19, 2024 End: June 19, 2024 NATALIA Phelps Referring Provider Active Start: June 19, 2024 End: June 19, 2024 Team Status: Inactive Member Role/Relationship Status Dates Dr. Piedad Sun MD Primary Care Provider Active Start: June 21, 2024 End: June 21, 2024 SARA Ruano Attending Provider Active Start: June 21, 2024 End: June 21, 2024 SARA Ruano Referring Provider Active Start: June 21, 2024 End: June 21, 2024 Team Status: Inactive Member Role/Relationship Status Dates Dr. Piedad Sun MD Primary Care Provider Active Start: August 23, 2024 End: August 23, 2024 Dr. Piedad Sun MD Referring Provider Active Start: August 23, 2024 End: August 23, 2024 Dr. Phillip Shah DO Attending Provider Active Start: August 23, 2024 End: August 23, 2024 Team Status: Active Member Role/Relationship Status Dates Dr. Piedad Sun MD Primary Care Provider Active Start: August 23, 2024 Dr. Piedad Sun MD Referring Provider Active Start: August 23, 2024 Dr. Phillip Shah DO Attending Provider Active Start: August 23, 2024 Dr. Phillip Shah DO Other Provider Active St art: August 23, 2024 Team Status: Inactive Member Role/Relationship Status Dates Dr. Piedad Sun MD Primary Care Provider Active Start: September 13, 2024 End: September 13, 2024 Dr. Piedad Sun MD Referring Provider Active Start: September 13, 2024 End: September 13, 2024 SARA Ruano Attending Provider Active Start: September 13, 2024 End: September 13, 2024 Team Status: Active Member Role/Relationship Status Dates Dr. Piedad Sun MD Primary Care Provider Active Start: October 04, 2024 Dr. Louie Song DO Emergency Provider Active Start: October 04, 2024 Dr. Lien Tyson MD Attending Provider Active Start: October 04, 2024 Team Status: Active Member Role/Relationship Status Dates Dr. Piedad Sun MD Primary Care Provider Active Start: October 04, 2024 Dr. Louie Song DO Emergency Provider Active Start: October 04, 2024 Dr. Lien Tyson MD Other Provider Active S tart: October 04, 2024 Jaymie FISHER PA-C Attending Provider Active Start: October 04, 2024 Team Status: Inactive Member Role/Relationship Status Dates Dr. Piedad Sun MD Primary Care Provider Active Start: October 04, 2024 End: October 04, 2024 Dr. Louie Song DO Emergency Provider Active Start: October 04, 2024 End: October 04, 2024 Dr. Lien Tyson MD Admit Provider Active S tart: October 04, 2024 End: October 04, 2024 Dr. Lien Tyson MD Attending Provider Active Start: October 04, 2024 End: October 04, 2024 Team Status: Inactive Member Role/Relationship Status Dates Dr. Piedad Sun MD Primary Care Provider Active Start: June 21, 2024 End: June 21, 2024 SARA Ruano Attending Provider Active Start: June 21, 2024 End: June 21, 2024 SARA Ruano Referring Provider Active Start: June 21, 2024 End: June 21, 2024 Team Status: Inactive Member Role/Relationship Status Dates Dr. Piedad Sun MD Primary Care Provider Active Start: August 23, 2024 End: August 23, 2024 Dr. Piedad Sun MD Referring Provider Active Start: August 23, 2024 End: August 23, 2024 Dr. Phillip Shah DO Attending Provider Active Start: August 23, 2024 End: August 23, 2024 Team Status: Active Member Role/Relationship Status Dates Dr. Piedad Sun MD Primary Care Provider Active Start: August 23, 2024 Dr. Piedad Sun MD Referring Provider Active Start: August 23, 2024 Dr. Phillip Shah DO Attending Provider Active Start: August 23, 2024 Dr. Phillip Shah DO Other Provider Active St art: August 23, 2024 Team Status: Inactive Member Role/Relationship Status Dates Dr. Piedad Sun MD Primary Care Provider Active Start: September 13, 2024 End: September 13, 2024 Dr. Piedad Sun MD Referring Provider Active Start: September 13, 2024 End: September 13, 2024 SARA Ruano Attending Provider Active Start: September 13, 2024 End: September 13, 2024 Team Status: Active Member Role/Relationship Status Dates Dr. Piedad Sun MD Primary Care Provider Active Start: October 04, 2024 Dr. Louie Song DO Emergency Provider Active Start: October 04, 2024 Dr. Lien Tyson MD Other Provider Active S tart: October 04, 2024 Jaymie FISHER PAWmC Attending Provider Active Start: October 04, 2024 Team Status: Inactive Member Role/Relationship Status Dates Dr. Piedad Sun MD Primary Care Provider Active Start: October 04, 2024 End: October 04, 2024 Dr. Louie Song DO Emergency Provider Active Start: October 04, 2024 End: October 04, 2024 Dr. Lien Tyson MD Admit Provider Active S tart: October 04, 2024 End: October 04, 2024 Dr. Lien Tyson MD Attending Provider Active Start: October 04, 2024 End: October 04, 2024 Team Status: Inactive Member Role/Relationship Status Dates Dr. Piedad Sun MD Primary Care Provider Active Start: October 18, 2024 End: October 18, 2024 Dr. Piedad Sun MD Referring Provider Active Start: October 18, 2024 End: October 18, 2024 SARA Alanis Attending Provider Active Start: October 18, 2024 End: October 18, 2024 Team Status: Inactive Member Role/Relationship Status Dates Dr. Piedad Sun MD Primary Care Provider Active Start: August 23, 2024 End: August 23, 2024 Dr. Piedad Sun MD Referring Provider Active Start: August 23, 2024 End: August 23, 2024 Dr. Phillip Shah DO Attending Provider Active Start: August 23, 2024 End: August 23, 2024 Team Status: Active Member Role/Relationship Status Dates Dr. Piedad Sun MD Primary Care Provider Active Start: August 23, 2024 Dr. Piedad Sun MD Referring Provider Active Start: August 23, 2024 Dr. Phillip Shah DO Attending Provider Active Start: August 23, 2024 Dr. Phillip Shah DO Other Provider Active St art: August 23, 2024 Team Status: Inactive Member Role/Relationship Status Dates Dr. Piedad Sun MD Primary Care Provider Active Start: September 13, 2024 End: September 13, 2024 Dr. Piedad Sun MD Referring Provider Active Start: September 13, 2024 End: September 13, 2024 MARGARITA RuanoC Attending Provider Active Start: September 13, 2024 End: September 13, 2024 Team Status: Active Member Role/Relationship Status Dates Dr. Piedad Sun MD Primary Care Provider Active Start: October 04, 2024 Dr. Louie Song DO Emergency Provider Active Start: October 04, 2024 Dr. Lien Tyson MD Other Provider Active S tart: October 04, 2024 SAFIA GriffithsC Attending Provider Active Start: October 04, 2024 Team Status: Inactive Member Role/Relationship Status Dates Dr. Piedad Sun MD Primary Care Provider Active Start: October 04, 2024 End: October 04, 2024 Dr. Louie Song DO Emergency Provider Active Start: October 04, 2024 End: October 04, 2024 Dr. Lien Tyson MD Admit Provider Active S tart: October 04, 2024 End: October 04, 2024 Dr. Lien Tyson MD Attending Provider Active Start: October 04, 2024 End: October 04, 2024 Team Status: Inactive Member Role/Relationship Status Dates Dr. Piedad Sun MD Primary Care Provider Active Start: October 18, 2024 End: October 18, 2024 Dr. Piedad Sun MD Referring Provider Active Start: October 18, 2024 End: October 18, 2024 SARA Alanis Attending Provider Active Start: October 18, 2024 End: October 18, 2024 Team Status: Inactive Member Role/Relationship Status Dates Dr. Piedad Sun MD Primary Care Provider Active Start: October 20, 2024 End: October 20, 2024 Dr. Piedad Sun MD Referring Provider Active Start: October 20, 2024 End: October 20, 2024 Dr. Lien Tyson MD Attending Provider Active Start: October 20, 2024 End: October 20, 2024 Team Status: Active Member Role/Relationship Status Dates Dr. Piedad Sun MD Primary Care Provider Active Start: October 04, 2024 Dr. Louie Song DO Referring Provider Active Start: October 04, 2024 Dr. Louie Song DO Emergency Provider Active Start: October 04, 2024 Dr. Lien Tyson MD Attending Provider Active Start: October 04, 2024 Dr. Lien Tyson MD Other Provider Active S tart: October 04, 2024 Team Status: Inactive Member Role/Relationship Status Dates Dr. Piedad Sun MD Primary Care Provider Active Start: November 24, 2024 End: November 24, 2024 Dr. Piedad Sun MD Referring Provider Active Start: November 24, 2024 End: November 24, 2024 Dr. Rowena Arias DO Attending Provider Activ e Start: November 24, 2024 End: November 24, 2024 Still Cleaner Tube Relationship Specialty Start Date End Date Piedad Sun MD [address] [facility] [address] PCP - General Family Medicine 07/05/24 FOR RECORDS PERTAINING TO PATIENTS WHO ARE [...] BE BASED ON THE PRIMARY CLINICAL RECORDS. [facility] [employer] [facility]. provides no warranty or guarantee of the accuracy or completeness of information in this document.
[2025-01-30 16:09] LABS: HPV APTIMA, High Risk Negative (Negative)
== END | disposition home or self-care (01) ==
LOC: LABSPEC 16:22
PROVIDERS: PCP Family Medicine; Visit Provider Obstetrics & Gynecology
DX: Z12.4 Encounter for screening for malignant neoplasm of cervix (principal)
CPT/HCPCS: 87624; 88175; G0145